=== PATIENT | female | born 1935 | race Caucasian/White ===

== ENCOUNTER 2017-09-18 14:00 | Inpatient (IN) | payer OTHER, MEDICARE ==
--- NOTE | 2017-09-18 14:17 | PDOC ---
Attending Attestation - HPI HPI: 09/18/17 18:05 The patient is a 81 year old female with a significant PMH of IDDM, GERD, OA of the knees, hypertension, benign functional heart murmur who was brought to the emergency department via EMS after a slip and fall at home earlier today. The patient reports she was zipping up her jacket as she was descending the stairs in her home when she missed a step and fell onto her L hip. The patient states she landed only her her hip, and did not sustain any other injuries. The patient denies headstrike or LOC. She has been unable to range her LLE at the hip or bear weight. Denies lightheadedness, dizziness, chest pain, shortness of breath, and headache. Denies fever, chills, nausea, vomit, diarrhea and constipation. Pt is not on AC. Allergies: NKA Social history: No reported alcohol, drug, or cigarette use. PCP: Dr. Craven - Medical Decision Making 09/18/17 18:05 Documentation prepared by Lamar Dangelo, acting as forensic medical examiner for Mikel Lewis MD. <Lamar Dangelo - Last Filed: 09/18/17 18:05> - Resident Resident Name: Inocente Gutierrez - ED Attending Attestation I have performed the following: I have examined & evaluated the patient, The case was reviewed & discussed with the resident, I agree w/resident's findings & plan, Exceptions are as noted - Physicial Exam PE: 09/18/17 15:41 GENERAL: Awake, alert, and fully oriented, in no acute distress HEAD: No signs of trauma EYES: PERRLA, EOMI, sclera anicteric, conjunctiva clear ENT: Auricles normal inspection, hearing grossly normal, nares patent, oropharynx clear without exudates. Moist mucosa NECK: Normal ROM, supple, no lymphadenopathy, JVD, or masses LUNGS: Breath sounds equal, clear to auscultation bilaterally. No wheezes, and no crackles HEART: Regular rate and rhythm, normal S1 and S2, no murmurs, rubs or gallops ABDOMEN: Soft, nontender, normoactive bowel sounds. No guarding, no rebound. No masses. Insulin pump in place EXTREMITIES: L femur with no deformities or bruising, +ttp along lateral mid femur. Pelvis stable. No hip ttp. L leg short, no rotation. Remainder of extremities: Normal range of motion, no edema. No clubbing or cyanosis. No cords, erythema, or tenderness NEUROLOGICAL: Normal speech, cranial nerves intact, negative pronator drift, 5/ 5 strength in all 4 extremities, normal sensation to light touch in all 4 extremities, normal cerebellar exam, normal reflexes and tone. Gait deferred SKIN: Warm, Dry, normal turgor, no rashes or lesions noted. - Medical Decision Making 09/18/17 15:40 81-year-old female presents with left hip and left femur pain after missing a stair at home. Vitals unremarkable. Exam with tenderness palpation of the left mid femur, 2+ DP pulse. Concern for femoral fracture, will control pain, obtain basic labs, and obtain x-ray to evaluate for bony injury. 09/18/17 18:43 Pain well-controlled with morphine. X-ray with left intertrochanteric impacted fracture. Consulted to Dr. Lewis from orthopedics who will see the patient tomorrow and recommends that the patient be NPO after midnight. Pre-op labs ordered and graham placed. Case discussed with nurse practitioner Erick, patient admitted to Dr. Monsivais for further management. Case discussed in detail with admitting physician including history, physical exam and ancillary studies. Admitting physician has assumed care for the patient, will follow all pending diagnostics and will complete the evaluation and treatment. <Mikel Lewis - Last Filed: 09/18/17 18:44> Discharge Disposition <Lamar Dangelo - Last Filed: 09/18/17 18:05> - Discharge Dispostion Last Admission D/C Date: 10/24/08 Admit: Yes <Mikel Lewis - Last Filed: 09/18/17 18:44> - Diagnosis Hip fracture, intertrochanteric - Discharge Dispostion Condition at time of disposition: Stable - Referrals Referrals: Raudel Craven MD [Primary Care Provider] - - Patient Instructions - Post Discharge Activity
[2017-09-18] MEDS ORDERED: morphine CARPU-JECT 10 MG/1 ML DISP.SYRIN IVPUSH ONE (14:46)
--- NOTE | 2017-09-18 14:53 | PDOC ---
History of Present Illness - General Chief Complaint: Injury Stated Complaint: FALL Time Seen by Provider: 09/18/17 14:13 - History of Present Illness Initial Comments: 09/18/17 14:48 Pt is a 81 y/o F with PMH IDDM (uses insulin pump), GERD, OA of the knees, ?RA, HTN, benign functional heart murmur who was BIBEMS after slipping and falling at home approximately 1 hour ago. Pt was going down steps and fell on her left hip. Pt complains of left hip and leg pain, especially when trying to move the limb. Denies numbness and tingling in the extremities. Pt denies LOC, aura, lightheadedness, vertigo. Pt not on anticoagulation. Past History - Past Medical History Allergies/Adverse Reactions: Allergies Allergy/AdvReac Type Severity Reaction Status Date / Time No Known Allergies Allergy Verified 09/18/17 14:59 Home Medications: Ambulatory Orders Cetirizine HCl [Zyrtec -] 10 mg PO DAILY 09/18/17 Insulin Lispro [Humalog] See Protocol SQ ASDIR 09/18/17 Losartan Potassium [Cozaar] 300 mg PO DAILY 09/18/17 Ranitidine HCl 150 mg PO DAILY 09/18/17 Rosuvastatin Calcium [Crestor] 5 mg PO HS 09/18/17 Sucralfate [Carafate] 1 gm PO BID 09/18/17 Sumatriptan Succinate [Imitrex -] 50 mg PO PRN PRN 09/18/17 Tramadol HCl 50 mg PO PRN PRN 09/18/17 - Suicide/Smoking/Psychosocial Hx Smoking History: Never smoked Have you smoked in the past 12 months: No Information on smoking cessation initiated: No Hx Alcohol Use: No Drug/Substance Use Hx: No Review of Systems - Review of Systems Able to Perform ROS?: Yes Is the patient limited Bengali proficient: No Constitutional: Yes: Symptoms Reported. No: Chills, Diaphoresis HEENTM: Yes: Symptoms Reported. No: Blurred Vision, Double Vision Respiratory: Yes: Symptoms reported. No: Cough, Orthopnea Cardiac (ROS): Yes: Symptoms Reported. No: Chest Pain, Edema, Irregular Heart Rate, Lightheadedness, Palpitations, Syncope, Chest Tightness ABD/GI: Yes: Symptoms Reported. No: Abdominal Distended, Nausea, Poor Appetite , Poor Fluid Intake, Vomiting : Yes: Symptoms Reported. No: Burning, Dysuria, Discharge, Pain Musculoskeletal: Yes: Symptoms Reported, See HPI, Joint Pain, Muscle Pain Integumentary: Yes: Symptoms Reported. No: Bruising, Lesions, Lumps Neurological: Yes: Symptoms reported, See HPI. No: Headache, Numbness, Paresthesia, Tingling, Tremors *Physical Exam - Vital Signs Last Vital Signs Temp Pulse Resp BP Pulse Ox 97.8 F 90 16 150/55 98 09/18/17 14:15 09/18/17 14:15 09/18/17 14:15 09/18/17 14:15 09/18/17 14:15 - Physical Exam General Appearance: Yes: Appropriately Dressed, Moderate Distress (only with movement of L limb). No: Apparent Distress HEENT: positive: EOMI, FELICITY, Normal ENT Inspection. negative: Pale Conjunctivae Neck: positive: Supple. negative: Tender Respiratory/Chest: positive: Lungs Clear, Normal Breath Sounds. negative: Chest Tender, Respiratory Distress, Accessory Muscle Use Cardiovascular: positive: Regular Rhythm, Regular Rate, S1, S2, Murmur, Systolic Murmur (4/6 holosystolic blowing murmur. Pt states it was diagnosed at 21y/o and is benign.) Vascular Pulses: Dorsalis-Pedis (R): 2+ (PT. Good cap refill), Doralis-Pedis (L) : 2+ (PT. Good cap refill) Gastrointestinal/Abdominal: positive: Normal Bowel Sounds, Flat, Soft. negative : Tender Musculoskeletal: positive: Decreased Range of Motion (left hip. Limited by pain) Extremity: positive: Normal Capillary Refill, Normal Inspection, Tender (left hip/leg. Left greated trochanter nontender. Passive ROM of left hip moderately painful), Pelvis Stable, Other (Pelvis stable. Neurovasc intact LLE). negative : Normal Range of Motion (pt not able to move left hip 2/2 pain.), Pedal Edema Integumentary: positive: Normal Color. negative: Bruising Neurologic: positive: contact lens curve grinder II-XII NML intact, Fully Oriented, Alert, Normal Mood/ Affect, Normal Response, Other. negative: Motor Strength 5/5 (Left hip movement not testable due to pain. ), Numbness ED Treatment Course - LABORATORY CBC & Chemistry Diagram: 09/19/17 07:20 09/19/17 07:20 - RADIOLOGY Radiology Studies Ordered: Category Date Time Status HIP & PELVIS-LEFT [RAD] Stat Radiology 09/18/17 14:47 Ordered Medical Decision Making - Medical Decision Making 09/18/17 15:00 Pt is a 81 y/o F w/ PMH significant for OA and possible RA slipped and fell earlier this afternoon. Passive and active ROM limited by pain. No TTP of the pelvis, greater trochanter. No bruising evident. Plan -r/o fracture/dislocation -CBC -CMP -Coags -Type & Screen -L hip & pelvis & chest XR 09/18/17 16:29 Labs significant for leukocytosis, likely reactive. Imaging significant for left femoral head fracture (pending official read). 09/18/17 16:35 Microblog sent to hospitalist team who noted that Dr. Craven/Fabián admit until 5pm today. Call placed to Dr. Craven/Fabián answering service. 09/18/17 17:30 No reply yet from Dr. Mcmillan. Second call placed. *DC/Admit/Observation/Transfer Diagnosis at time of Disposition: Hip fracture, intertrochanteric - Discharge Dispostion Condition at time of disposition: Stable - Referrals - Patient Instructions - Post Discharge Activity
[2017-09-18] MEDS ORDERED: morphine CARPU-JECT 10 MG/1 ML DISP.SYRIN ONE ×2 (15:02→17:01)
[2017-09-18 15:25] LABS: BASO % 0.6 % (0-2.0); EOS % 0.1 % (0-4.5); HEMATOCRIT 39.1 % (32.4-45.2); HEMOGLOBIN 12.9 GM/dL (10.7-15.3); LYMPH % 5.4 % (8-40); MEAN CELL VOLUME 97.2 fl (80-96); MEAN PLT VOLUME 8.7 fl (7.5-11.1); MONO % 7.7 % (3.8-10.2); NEUT % 86.2 % (42.8-82.8); PLATELET COUNT 308 K/MM3 (134-434); RBC 4.03 M/mm3 (3.60-5.2); RDW 12.7 % (11.6-15.6); WHITE BLOOD COUNT 16.2 K/mm3 (4.0-10.0)
[2017-09-18 15:49] LABS: ALBUMIN 3.8 g/dl (3.4-5.0); ANION GAP 11 (8-16); BILIRUBIN,TOTAL 0.7 mg/dL (0.2-1.0); BLOOD UREA NITROGEN 17 mg/dL (7-18); CALCIUM 8.9 mg/dL (8.5-10.1); CHLORIDE 108 mmol/L (98-107); CO2 24 mmol/L (21-32); CREATININE 0.7 mg/dL (0.55-1.02); GLUCOSE,RANDOM 230 mg/dL (74-106); POTASSIUM 4.4 mmol/L (3.5-5.1); SGOT/AST 27 U/L (15-37); SGPT/ALT 32 U/L (12-78); SODIUM 143 mmol/L (136-145); TOT PROT 6.6 g/dl (6.4-8.2)
[2017-09-18 15:50] LABS: ALK PHOS 74 U/L (45-117)
[2017-09-18 15:51] LABS: INR 1.03 (0.82-1.09); PROTHROMBIN TIME (PATIENT) 11.6 SEC (9.98-11.88)
[2017-09-18 15:54] LABS: ACTIVATED PTT 24.3 SECONDS (26.9-34.4)
[2017-09-18] MEDS ORDERED: morphine CARPU-JECT 4 MG/1 ML DISP.SYRIN IVPUSH ONE (16:32)
--- NOTE | 2017-09-18 19:50 | HP ---
CHIEF COMPLAINT: L hip fracture PCP: Dr. Craven HISTORY OF PRESENT ILLNESS: 81 yo woman w/ IDDM, HTN, OA (BL knees), benign heart murmur, who was BIBEMS after mechanical fall earlier today onto L hip. Pt states she was putting her coat on while trying to exit her house to check on an overturned garbage can outside and lost her footing on steps, landing on her L hip. Pt denies LOC, aura , lightheadness, SOB, palpitations, vertigo or weakness in legs at the time. She denies headstrike or trauma to any other body part and denies any notable deformity in the hip at the time. Pt states she tried to crawl on her knees, but stopped because of the pain. Pt normally lives alone, however grandson and son were staying with her and responded, activating EMS. Pt denies any weakness , numbness/tingling or poikilothermia distal to site of injury. Pt not currently on AC. She exercises normally and walks frequently around the house to prevent stiffness in knees from OA. She has a walker, but rarely uses it. Pt endorses receiving a DEXA scan in past, but unsure of date and results. Pt with hx of multiple ankle fractures in last decade and endorses "gait issues", but states she has full strength and no neurologic deficits in her legs. She denies any prior episodes of LOC or seizures. Denies any SANCHEZ/lightheadness, fever/chills , CP, SOB, WELLS, abdominal pain, N/V, peripheral numbness/weakness. She does endorse an occasional oral tremor that is brought on by stress, but no other neurologic issues per pt. ER course was notable for: (1)WBC 16.2 (2)Stable vitals (3)Hip XR w/ comminuted proximal femur fracture Recent Travel: None PAST MEDICAL HISTORY: IDDM GERD OA (knees) hypertension PAST SURGICAL HISTORY: None Social History: Smoking: Denies Alcohol: Denies Drugs: Denies Family History: Noncontributory Allergies NKDA No Known Allergies Allergy (Verified 09/18/17 14:59) HOME MEDICATIONS: Home Medications Medication Instructions Recorded Cetirizine HCl [Zyrtec -] 10 mg PO DAILY 09/18/17 Insulin Lispro [Humalog] See Protocol SQ ASDIR 09/18/17 Losartan Potassium [Cozaar] 300 mg PO DAILY 09/18/17 Ranitidine HCl 150 mg PO DAILY 09/18/17 Rosuvastatin Calcium [Crestor] 5 mg PO HS 09/18/17 Sucralfate [Carafate] 1 gm PO BID 09/18/17 Sumatriptan Succinate [Imitrex -] 50 mg PO PRN PRN 09/18/17 Tramadol HCl 50 mg PO PRN PRN 09/18/17 REVIEW OF SYSTEMS CONSTITUTIONAL: Absent: fever, chills, diaphoresis, generalized weakness, malaise, loss of appetite, weight change HEENT: Absent: rhinorrhea, nasal congestion, throat pain, throat swelling, difficulty swallowing, mouth swelling, ear pain, eye pain, visual changes CARDIOVASCULAR: Absent: chest pain, syncope, palpitations, irregular heart rate, lightheadedness , peripheral edema RESPIRATORY: Absent: cough, shortness of breath, dyspnea with exertion, orthopnea, wheezing, stridor, hemoptysis GASTROINTESTINAL: Absent: abdominal pain, abdominal distension, nausea, vomiting, diarrhea, constipation, melena, hematochezia GENITOURINARY: Absent: dysuria, frequency, urgency, hesitancy, hematuria, flank pain, genital pain MUSCULOSKELETAL: L hip pain arthralgia, joint swelling, Absent: myalgia, back pain, neck pain SKIN: Absent: rash, itching, pallor HEMATOLOGIC/IMMUNOLOGIC: Absent: easy bleeding, easy bruising, lymphadenopathy, frequent infections ENDOCRINE: Absent: unexplained weight gain, unexplained weight loss, heat intolerance, cold intolerance NEUROLOGIC: unsteady gait, Absent: headache, focal weakness or paresthesias, dizziness, seizure, mental status changes, bladder or bowel incontinence PSYCHIATRIC: Absent: anxiety, depression, suicidal or homicidal ideation, hallucinations. PHYSICAL EXAMINATION Vital Signs - 24 hr 09/18/17 14:15 Temperature 97.8 F Pulse Rate 90 Respiratory 16 Rate Blood Pressure 150/55 O2 Sat by Pulse 98 Oximetry (%) GENERAL: Awake, alert, and fully oriented, in no acute distress. HEAD: Normal with no signs of trauma. Inferolabial tremor noted. EYES: Pupils equal, round and reactive to light, extraocular movements intact, sclera anicteric, conjunctiva clear. No lid lag. EARS, NOSE, THROAT: Ears normal, nares patent, oropharynx clear without exudates. Moist mucous membranes. NECK: Normal range of motion, supple without lymphadenopathy, JVD, or masses. LUNGS: Breath sounds equal, clear to auscultation bilaterally. No wheezes, and no crackles. No accessory muscle use. HEART: 3/6 blowing systolic murmur, best heard at LUSB. Regular rate and rhythm , normal S1 and S2 ABDOMEN: Soft, nontender, not distended, normoactive bowel sounds, no guarding, no rebound, no masses. No hepatomegaly or splenomegaly. MUSCULOSKELETAL: Decreased ROM in L hip, limited due to pain. Focal pain noted at fx site in the anterolateral hip. Normal range of motion at all other joints. No bony deformities or tenderness. No CVA tenderness. UPPER EXTREMITIES: 2+ pulses, warm, well-perfused. No cyanosis. No clubbing. No peripheral edema. LOWER EXTREMITIES: No ecchymoses noted in L hip. 2+ DP, PT pulses BL. Warm, well-perfused BL. No calf tenderness. No peripheral edema. NEUROLOGICAL: Cranial nerves II-XII intact. Normal speech. Normal gait. PSYCHIATRIC: Cooperative. Good eye contact. Appropriate mood and affect. SKIN: Warm, dry, normal turgor, no rashes or lesions noted, normal capillary refill. Laboratory Results - last 24 hr CBC, BMP 09/18/17 15:20 09/18/17 14:57 09/18/17 09/18/17 09/18/17 14:57 14:57 15:18 WBC RBC Hgb Hct MCV MCH MCHC RDW Plt Count MPV Neutrophils % Lymphocytes % Monocytes % Eosinophils % Basophils % PT with INR 11.60 INR 1.03 PTT (Actin FS) 24.3 L Sodium 143 Potassium 4.4 Chloride 108 H Carbon Dioxide 24 Anion Gap 11 BUN 17 Creatinine 0.7 Creat Clearance w eGFR > 60 POC Glucometer [phone] Random Glucose 230 H Calcium 8.9 Total Bilirubin 0.7 AST 27 ALT 32 Alkaline Phosphatase 74 Total Protein 6.6 Albumin 3.8 Blood Type Antibody Screen 09/18/17 09/18/17 09/18/17 15:20 15:20 17:45 WBC 16.2 H RBC 4.03 Hgb 12.9 Hct 39.1 MCV 97.2 H MCH 32.0 MCHC 33.0 RDW 12.7 Plt Count 308 MPV 8.7 Neutrophils % 86.2 H Lymphocytes % 5.4 L Monocytes % 7.7 Eosinophils % 0.1 Basophils % 0.6 PT with INR INR PTT (Actin FS) Sodium Potassium Chloride Carbon Dioxide Anion Gap BUN Creatinine Creat Clearance w eGFR POC Glucometer Random Glucose Calcium Total Bilirubin AST ALT Alkaline Phosphatase Total Protein Albumin Blood Type A POSITIVE A POSITIVE Antibody Screen Negative EKG: NSR, NAD, rate 87, QTc 474, No ST or T wave changes CXR: Mild pulmonary vascular congestion. No evidence of pleural effusion. No definable pneumothorax. Hip/leg XR: IMPRESSION: Acute, comminuted complete fracture through the intertrochanteric proximal left femur as described above, with impaction and marked varus of the left femoral shaft. ASSESSMENT/PLAN: 81 yo woman w/ IDDM, HTN, OA (BL knees), benign heart murmur, who was BIBEMS after mechanical fall earlier today onto L hip. #L Femur fracture - Imaging confirmed, pt seen by ortho, ORIF in early PM tomorrow - Ortho consult, recs appreciated - Morphine for pain control - NPO after midnight - No splint needed on legs. Bedrest pre-op - AM Coags, CBC, BMP #Leukocystosis - likely stress response; no infectious symptoms - Monitor for signs infection - Trend WBC, fever #IDDM - On insulin pump at home (humalog); - ISS - BGM Q4H #GERD - Protonix IV qD PPX Heparin SubQ FEN PO hydration, NPO after midnight Daily BMPs NPO after midnight, diabetic diet post-op Plan discussed with attending, Dr. Maribel Campos, PGY1 Visit type - Emergency Visit Emergency Visit: Yes ED Registration Date: 09/18/17 Care time: The patient presented to the Emergency Department on the above date and was hospitalized for further evaluation of their emergent condition. - New Patient This patient is new to me today: Yes Date on this admission: 10/01/17 - Critical Care Critical Care patient: No
--- NOTE | 2017-09-18 21:30 | CONSULT ---
Consult - text type - Consultation Consultation Note: Asked to evaluate this margi 81F who fell at home today. She sustained a left comminuted intertrochanteric proximal femur fracture. Prior community ambulator. PMH significant for IDDM, HTN, OA of knees, benign heart murmur. PMH: as above Meds: reviewed in chart All: NKDA FH: n/c SH: denies etoh/cig use ROS: denies recent fevers/chills/weight loss PE: AOx3, NAD, comfortable in bed. Has a resting tremor. Affect is appropriate and follows commands Skin is supple, breathing comfortably Neck NTTP, FROM without pain B/L UE FROM without pain LLE flexed, NVID, pulses 2+, brisk cap refill RLE PROM without pain, pulses 2+, brisk cap refill Xrays: Comminuted, displaced, intertrochanteric proximal femur fracture with varus angulation Imp: Unstable left intertrochanteric proximal femur fracture -needs operative fixation pending medical clearance. -R/B/A discussed. There is a risk of infection, anesthesia complications, non union, mal union, hardware failure, limb length discrepancy, stiffness, persistent pain. There is a possibility that she will require an assist device for ambulation once fully healed. -She will need pharmacologic anticoagulation for 4 weeks for DVT prophylaxis -all questions answered and she agrees with the plan
[2017-09-18] MEDS ORDERED: ROSUVASTATIN CA 5 MG TABLET (FP) PO SCH (22:00)
--- NOTE | 2017-09-18 22:25 | PN ---
Teaching Attending Note Name of Resident: Jackson Campos ATTENDING PHYSICIAN STATEMENT I saw and evaluated the patient. Chart, data, imaging reviewed. I reviewed the resident's note and discussed the case with the resident. I agree with the resident's findings and plan as documented. SUBJECTIVE: 81 yo woman w/ DM, HTN, OA (BL knees), heart murmur, BIBEMS after mechanical sustained on 09/18/17 around midday. Patient reports slipping on ice and landing on her left hip. She c/o severe pain afterwards and was not able to ambulate. She denied any trauma to head. No loss of consciousness. She did not land on any other part of body and denied pain elsewhere. Denied any loss of sensation or numbness of lower extremities. OBJECTIVE: Last Vital Signs Temp Pulse Resp BP Pulse Ox 97.8 F 90 16 150/55 98 09/18/17 14:15 09/18/17 14:15 09/18/17 14:15 09/18/17 14:15 09/18/17 14:15 General- appears comfortable, NAD, communicates fluently HEENT- atraumatic, normocephalic, moist oral mucosa Neck - supple, no masses CV- s1+s2+, systolic murmur Chest- CTA b/l Abdomen- soft, nontender, no masses appreciated Ext - left lateral thigh- tender to palpation, DP 2+ b/l,, sensation in LE grossly intact, wrists with good ROM and no tenderness b/l Abnormal Lab Results 09/18/17 09/18/17 09/18/17 14:57 14:57 15:20 WBC 16.2 H MCV 97.2 H Neutrophils % 86.2 H Lymphocytes % 5.4 L PTT (Actin FS) 24.3 L Chloride 108 H Random Glucose 230 H left femur xray- acute communited complete fracture through intertrochanteric proximal left femur ASSESSMENT AND PLAN: #Left femur acute communited intertrochanteric fracture -admit to med/surg -orthopedics consult -NPO past midnight for possible orthopedic intervention -bed rest -pain control with morphine 2mg IVP q4hrs PRN -heparin 5000 units sc q8hrs for DVT ppx
[2017-09-18] MEDS ORDERED: INSULIN (NOVOLOG) ASPART 100 UNITS/ML 10ML VIAL ONE (23:05)
[2017-09-18] MEDS: INSULIN SLIDING SCALE (NOVOLOG) 1 VIAL SQ SCH (23:09)
[2017-09-18] MEDS ORDERED: INSULIN (NOVOLOG) ASPART 100 UNITS/ML 10ML VIAL SQ ONE (23:15)
[2017-09-18] MEDS ORDERED: SODIUM CHLORIDE 1,000 ML IV SCH (23:15)
[2017-09-19] MEDS ORDERED: morphine CARPU-JECT 10 MG/1 ML DISP.SYRIN ONE ×3 (01:04→14:11)
[2017-09-19] MEDS: morphine CARPU-JECT 10 MG/1 ML DISP.SYRIN IVPUSH PRN ×4 (01:11→20:36)
[2017-09-19] MEDS: INSULIN SLIDING SCALE (NOVOLOG) 1 VIAL SQ SCH ×6 (03:07→22:04)
[2017-09-19] MEDS ORDERED: INSULIN (NOVOLOG) ASPART 100 UNITS/ML 10ML VIAL ONE ×3 (03:10→21:54)
[2017-09-19] MEDS ORDERED: HEPARIN NA (PORCINE) 5,000 UNITS/ML 1ML VIAL ONE ×2 (06:08→14:54)
[2017-09-19] MEDS: HEPARIN NA (PORCINE) 5,000 UNITS/ML 1ML VIAL SQ SCH ×3 (06:32→21:39)
[2017-09-19 07:42] LABS: BASO % 0.4 % (0-2.0); EOS % 0.4 % (0-4.5); HEMATOCRIT 32.7 % (32.4-45.2); HEMOGLOBIN 10.7 GM/dL (10.7-15.3); LYMPH % 20.4 % (8-40); MCH 31.6 pg (25.7-33.7); MCHC 32.6 g/dl (32.0-36.0); MEAN PLT VOLUME 8.1 fl (7.5-11.1); MONO % 12.2 % (3.8-10.2); NEUT % 66.6 % (42.8-82.8); PLATELET COUNT 257 K/MM3 (134-434); RBC 3.37 M/mm3 (3.60-5.2); RDW 12.5 % (11.6-15.6)
[2017-09-19 07:56] LABS: INR 1.06 (0.82-1.09)
[2017-09-19 07:59] LABS: ACTIVATED PTT 22.8 SECONDS (26.9-34.4)
[2017-09-19 08:58] LABS: ALBUMIN 3.2 g/dl (3.4-5.0); ANION GAP 11 (8-16); BLOOD UREA NITROGEN 22 mg/dL (7-18); CALCIUM 8.4 mg/dL (8.5-10.1); CHLORIDE 110 mmol/L (98-107); CO2 22 mmol/L (21-32); CREATININE 0.6 mg/dL (0.55-1.02); GLUCOSE,RANDOM 100 mg/dL (74-106); POTASSIUM 3.8 mmol/L (3.5-5.1); SGOT/AST 20 U/L (15-37); SGPT/ALT 26 U/L (12-78); SODIUM 143 mmol/L (136-145)
[2017-09-19 09:00] LABS: ALK PHOS 62 U/L (45-117); TOT PROT 5.7 g/dl (6.4-8.2)
[2017-09-19] MEDS ORDERED: PANTOPRAZOLE SODIUM 40 MG VIAL IVPUSH SCH (10:00)
[2017-09-19] MEDS ORDERED: PANTOPRAZOLE SODIUM 40 MG/100 ML BAG IVPB ONE (10:55)
[2017-09-19] MEDS ORDERED: INSULIN NPH 100 UNITS/ML *VIAL ONE (14:46)
[2017-09-19 16:12] VITALS: BMI 28.3
[2017-09-19] MEDS ORDERED: MIDAZOLAM HCL 2 MG/2 ML SINGLE DOSE VIAL ONE ×2 (17:18→17:46)
[2017-09-19] MEDS ORDERED: PHENYLEPHRINE HCL 10 MG/1 ML SINGLE DOSE VIAL ONE (17:42)
[2017-09-19] MEDS ORDERED: ceFAZolin SODIUM 1 GM VIAL ONE (17:47)
--- NOTE | 2017-09-19 17:49 | PN ---
Progress Note, Physician Chief Complaint: Pt is a 81 y/o F with PMH IDDM (uses insulin pump), GERD, OA of the knees, ?RA, HTN, benign functional heart murmur who was BIBEMS after slipping and falling at home approximately 1 hour ago. Pt was going down steps and fell on her left hip. Pt complains of left hip and leg pain, especially when trying to move the limb. Denies numbness and tingling in the extremities. Pt denies LOC, aura, lightheadedness, vertigo. Pt not on anticoagulation. History of Present Illness: Pt is a 81 y/o F with PMH IDDM (uses insulin pump), GERD, OA of the knees, ?RA, HTN, benign functional heart murmur who was BIBEMS after slipping and falling at home approximately 1 hour ago. Pt was going down steps and fell on her left hip. Pt complains of left hip and leg pain, especially when trying to move the limb. Denies numbness and tingling in the extremities. Pt denies LOC, aura, lightheadedness, vertigo. Pt not on anticoagulation. Pt is going to OR now Spoke with ID also - Current Medication List Current Medications: Active Medications Heparin Sodium (Porcine) (Heparin -) 5,000 unit SQ TID [facility] Last Admin: 09/19/17 14:59 Dose: 5,000 unit Sodium Chloride (Normal Saline -) 1,000 mls @ 75 mls/hr IV ASDIR [facility] Last Admin: 09/18/17 23:22 Dose: 75 mls/hr Ampicillin Sodium/Sulbactam (Sodium 3 gm/ Dextrose) 100 mls @ 200 mls/hr IVPB Q8H-IV [facility] Last Admin: 09/19/17 17:24 Dose: Not Given Insulin Aspart (Novolog Vial Sliding Scale -) 1 vial SQ Q4HPO [facility] PRN Reason: Protocol Last Admin: 09/19/17 17:24 Dose: Not Given Morphine Sulfate (Morphine Injection -) 2 mg IVPUSH Q4H PRN PRN Reason: PAIN Last Admin: 09/19/17 14:25 Dose: 2 mg Pantoprazole Sodium (Protonix Iv) 40 mg IVPUSH DAILY [facility] Last Admin: 09/19/17 11:10 Dose: 40 mg Rosuvastatin Calcium (Crestor -) 5 mg PO HS [facility] Last Admin: 09/18/17 23:10 Dose: 5 mg - Objective Vital Signs: Vital Signs Temperature 98.5 F 09/19/17 15:56 Pulse Rate 100 H 09/19/17 15:56 Respiratory Rate 20 09/19/17 15:56 Blood Pressure 147/66 09/19/17 15:56 O2 Sat by Pulse Oximetry (%) 97 09/19/17 15:56 Constitutional: Yes: No Distress Eyes: Yes: Conjunctiva Clear, EOM Intact HENT: Yes: Atraumatic, Normocephalic Neck: Yes: Supple, Trachea Midline Cardiovascular: Yes: Regular Rate and Rhythm, S1, S2 Respiratory: Yes: Regular, CTA Bilaterally Gastrointestinal: Yes: Normal Bowel Sounds, Soft Musculoskeletal: Yes: Other (Fracture Left Femur) Edema: No Neurological: Yes: Alert, Oriented, Cran Nerves II-XII Intact Labs: CBC, BMP 09/19/17 07:20 09/19/17 07:20 INR, PTT INR 1.06 (0.82-1.09) 09/19/17 07:20
[2017-09-19] MEDS ORDERED: ceFAZolin SODIUM 1 GM VIAL IVPB ONE (17:50)
[2017-09-19] MEDS ORDERED: PROPOFOL 20 ML ONE (17:59)
[2017-09-19] MEDS ORDERED: AMPICILLIN NA/SULBACTAM NA 3 GM in DEXTROSE 5%-WATER - 100 ML IVPB SCH (18:00)
[2017-09-19] MEDS ORDERED: ONDANSETRON 4 MG/2 ML VIAL IVPUSH PRN (19:05)
[2017-09-19] MEDS ORDERED: LACTATED RINGERS SOLUTION 1,000 ML IV SCH (19:15)
[2017-09-19] MEDS ORDERED: SUMAtriptan SUCCINATE 50 MG TABLET PO PRN (19:23)
[2017-09-19] MEDS: SODIUM CHLORIDE 1,000 ML IV SCH (19:35)
[2017-09-19] MEDS: AMPICILLIN NA/SULBACTAM NA 3 GM in DEXTROSE 5%-WATER - 100 ML IVPB SCH (20:39)
--- NOTE | 2017-09-19 21:08 | OP ---
DATE OF OPERATION: 09/19/2017 PREOPERATIVE DIAGNOSIS: Left unstable intertrochanteric proximal femur fracture. POSTOPERATIVE DIAGNOSIS: Left unstable intertrochanteric proximal femur fracture. PROCEDURE PERFORMED: Operative fixation of left intertrochanteric proximal femur fracture with intramedullary device (Juventino Gamma nail 10 mm x 125 degrees x 170 mm, 90-mm lag screw, 32.5-mm distal locking screw). SURGEON: Stanley Lewis MD ANESTHESIA: Spinal. INDICATION: Patient is a 81-year-old female who sustained a fall and an unstable left proximal femur fracture. She was indicated for operative fixation. Risks, benefits, and alternatives of the surgery were discussed in detail, and informed consent was obtained. DESCRIPTION: The patient was brought into the operating room viavstretcher, and spinal anesthesia was administered by the anesthesiologist. The patient was then transferred onto a fracture table. All bony prominences were padded, and the left lower extremity was placed in traction and internal rotation and the right lower extremity in flexion and external rotation. Intraoperative fluoroscopic radiographs showed excellent reduction in both the AP and lateral planes. The hip was then prepped and draped in usual sterile fashion. Prophylactic IV antibiotics were administered. A timeout was performed. An incision was then made at the appropriate level, and a guidewire was inserted across the proximal femur. A proximal drill was then passed, followed by insertion of the nail. The nail was seated to appropriate level, and the jig was then used for the guide for the lag screw. This was inserted through a stab wound in the thigh, and a guidewire was inserted into the center-center position. A cannulated drill was then passed, followed by insertion of the 90-mm lag screw. The set screw was then inserted and tightened all the way and then backed off 1/4 turn. The guide for the distal locking screw was then inserted through a stab wound in the thigh, and a drill was then passed, followed by the insertion of a 32.5-mm screw. There was excellent reduction and implant position in all planes during the postoperative fluoroscopic radiographs. The wounds were then copiously irrigated. The deep fascia was closed with No. 1 Vicryl suture. The deep dermal tissues were approximated with 2-0 Vicryl suture, and the skin was closed with salena. Sterile dressing was applied. The patient tolerated the procedure well without complications. Kari [id number] MTDD
[2017-09-19] MEDS: ROSUVASTATIN CA 5 MG TABLET (FP) PO SCH (21:38)
[2017-09-19] MEDS: SUCRALFATE 1 GM/10 ML UNIT DOSE CUPS PO SCH (21:38)
[2017-09-19] MEDS: DOCUSATE SODIUM 100 MG CAPSULE (FP) PO SCH (21:39)
[2017-09-19] MEDS ORDERED: INSULIN (NOVOLOG) ASPART 100 UNITS/ML 10ML VIAL SQ ONE (23:15)
[2017-09-20] MEDS: AMPICILLIN NA/SULBACTAM NA 3 GM in DEXTROSE 5%-WATER - 100 ML IVPB SCH ×2 (01:24→11:28)
[2017-09-20] MEDS: INSULIN SLIDING SCALE (NOVOLOG) 1 VIAL SQ SCH ×6 (01:31→21:48)
[2017-09-20] MEDS: SODIUM CHLORIDE 1,000 ML IV SCH ×3 (03:17→21:40)
[2017-09-20] MEDS: HEPARIN NA (PORCINE) 5,000 UNITS/ML 1ML VIAL SQ SCH ×3 (06:17→21:41)
[2017-09-20] MEDS ORDERED: PT OWN MED DRAWER 7, Y5N ONE (06:40)
[2017-09-20 08:37] LABS: BASO % 0.2 % (0-2.0); HEMATOCRIT 28.6 % (32.4-45.2); HEMOGLOBIN 9.3 GM/dL (10.7-15.3); LYMPH % 9.5 % (8-40); MCH 31.9 pg (25.7-33.7); MCHC 32.4 g/dl (32.0-36.0); MEAN CELL VOLUME 98.2 fl (80-96); MEAN PLT VOLUME 8.7 fl (7.5-11.1); MONO % 13.5 % (3.8-10.2); NEUT % 76.8 % (42.8-82.8); PLATELET COUNT 218 K/MM3 (134-434); RBC 2.91 M/mm3 (3.60-5.2); RDW 12.8 % (11.6-15.6); WHITE BLOOD COUNT 15.7 K/mm3 (4.0-10.0)
[2017-09-20 09:13] LABS: ANION GAP 17 (8-16); BLOOD UREA NITROGEN 16 mg/dL (7-18); CHLORIDE 108 mmol/L (98-107); CO2 16 mmol/L (21-32); CREATININE 0.6 mg/dL (0.55-1.02); GLUCOSE,RANDOM 220 mg/dL (74-106); POTASSIUM 3.7 mmol/L (3.5-5.1); SODIUM 141 mmol/L (136-145)
[2017-09-20] MEDS: SUCRALFATE 1 GM/10 ML UNIT DOSE CUPS PO SCH ×2 (09:19→21:39)
[2017-09-20] MEDS: DOCUSATE SODIUM 100 MG CAPSULE (FP) PO SCH ×2 (09:19→22:51)
[2017-09-20] MEDS: LOSARTAN POTASSIUM 50 MG TABLET (FP) PO SCH (09:20)
[2017-09-20] MEDS: LORATADINE 10 MG TABLET PO SCH (09:20)
[2017-09-20] MEDS: RANITIDINE HCL 150 MG TABLET (FP) PO SCH (09:20)
[2017-09-20] MEDS: PANTOPRAZOLE SODIUM 40 MG VIAL IVPUSH SCH (09:20)
--- NOTE | 2017-09-20 09:32 | PN ---
Progress Note (short form) - Note Progress Note: POD #1 - s/p left hip gamma nail under spinal anesthesia. VSS. Pt. doing well, resting comfortably in bed. No complaints. No apparent anesthetic complications noted. Continue current care.
[2017-09-20] MEDS: morphine CARPU-JECT 10 MG/1 ML DISP.SYRIN IVPUSH PRN ×2 (09:48→21:41)
[2017-09-20] MEDS ORDERED: INSULIN (NOVOLOG) ASPART 100 UNITS/ML 10ML VIAL ONE (10:11)
--- NOTE | 2017-09-20 11:01 | PN ---
Progress Note, Physician Chief Complaint: Pt is a 81 y/o F with PMH IDDM (uses insulin pump), GERD, OA of the knees, ?RA, HTN, benign functional heart murmur who was BIBEMS after slipping and falling at home approximately 1 hour ago. Pt was going down steps and fell on her left hip. Pt complains of left hip and leg pain, especially when trying to move the limb. Denies numbness and tingling in the extremities. Pt denies LOC, aura, lightheadedness, vertigo. Pt not on anticoagulation. History of Present Illness: Pt is a 81 y/o F with PMH IDDM (uses insulin pump), GERD, OA of the knees, ?RA, HTN, benign functional heart murmur who was BIBEMS after slipping and falling at home approximately 1 hour ago. Pt was going down steps and fell on her left hip. Pt complains of left hip and leg pain, especially when trying to move the limb. Denies numbness and tingling in the extremities. Pt denies LOC, aura, lightheadedness, vertigo. Pt not on anticoagulation. Pt is going to OR now Spoke with ID also - Current Medication List Current Medications: Active Medications Docusate Sodium (Colace -) 100 mg PO BID [facility] Last Admin: 09/20/17 09:19 Dose: 100 mg Heparin Sodium (Porcine) (Heparin -) 5,000 unit SQ TID [facility] Last Admin: 09/20/17 06:17 Dose: 5,000 unit Lactated Ringer's (Lactated Ringers Solution) 1,000 mls @ 75 mls/hr IV ASDIR [facility] Ampicillin Sodium/Sulbactam (Sodium 3 gm/ Dextrose) 100 mls @ 200 mls/hr IVPB Q8H-IV [facility] Last Admin: 09/20/17 01:24 Dose: 200 mls/hr Sodium Chloride (Normal Saline -) 1,000 mls @ 75 mls/hr IV ASDIR [facility] Last Admin: 09/20/17 09:26 Dose: 75 mls/hr Insulin Aspart (Novolog Vial Sliding Scale -) 1 vial SQ Q4HPO [facility] PRN Reason: Protocol Last Admin: 09/20/17 10:13 Dose: 8 units Loratadine (Claritin -) 10 mg PO DAILY [facility] Last Admin: 01/06/18 09:20 Dose: 10 mg Losartan Potassium (Cozaar -) 100 mg PO DAILY [facility] Last Admin: 09/20/17 09:20 Dose: 100 mg Morphine Sulfate (Morphine Injection -) 2 mg IVPUSH Q4H PRN PRN Reason: PAIN Last Admin: 09/20/17 09:48 Dose: 2 mg Ondansetron HCl (Zofran Injection) 4 mg IVPUSH Q6H PRN PRN Reason: NAUSEA AND/OR VOMITING Pantoprazole Sodium (Protonix Iv) 40 mg IVPUSH DAILY [facility] Last Admin: 09/20/17 09:20 Dose: 40 mg Ranitidine HCl (Zantac -) 150 mg PO DAILY [facility] Last Admin: 09/20/17 09:20 Dose: 150 mg Rosuvastatin Calcium (Crestor -) 5 mg PO HS [facility] Last Admin: 09/19/17 21:38 Dose: 5 mg Sucralfate (Carafate Oral Suspension -) 1 gm PO BID [facility] Last Admin: 09/20/17 09:19 Dose: 1 gm Sumatriptan Succinate (Imitrex -) 50 mg PO PRN PRN PRN Reason: PAIN - Objective Vital Signs: Vital Signs Temperature 98.2 F 09/20/17 08:00 Pulse Rate 106 H 09/20/17 08:00 Respiratory Rate 16 09/20/17 08:00 Blood Pressure 120/75 09/20/17 08:00 O2 Sat by Pulse Oximetry (%) 98 09/19/17 21:00 Constitutional: Yes: Well Nourished, No Distress Eyes: Yes: Conjunctiva Clear, EOM Intact HENT: Yes: Atraumatic, Normocephalic Neck: Yes: Supple, Trachea Midline Cardiovascular: Yes: Regular Rate and Rhythm, S1, S2 Respiratory: Yes: Regular, CTA Bilaterally Gastrointestinal: Yes: Normal Bowel Sounds, Soft Edema: No Peripheral Pulses WNL: Yes Neurological: Yes: Alert, Oriented, Cran Nerves II-XII Intact Labs: CBC, BMP 09/20/17 07:00 09/20/17 07:00 INR, PTT INR 1.06 (0.82-1.09) 09/19/17 07:20
--- NOTE | 2017-09-20 11:05 | CON.ID ---
Consult Consult Specialty:: INFECTIOUS DISEASE Reason for Consultation:: Leukocytosis - History of Present Illness History of Present Illness: This is a 81 y.o. female with history of OA of knees, HTN, IDDM on insulin pump , GERD presenting Lt hip pain s/p slip and fall on the stairs. Pt denies any trauma to the head or loss of consciousness during the event. States she was in her usual state of health prior to fall. She was noted to have an elevated wbc upon admission. Pt denies chest pain, shortness of breath/cough, audio/visual disturbance, dizziness, dysuria. She has sustained a Lt intertrochanteric fracture now s/p operative repair. - History Source History Provided By: Patient Limitations to Obtaining History: No Limitations - Past Medical History Cardio/Vascular: Yes: HTN, Murmur (benign) Gastrointestinal: Yes: GERD ...: No Musculoskeletal: Yes: Osteoarthritis (knees) Endocrine: Yes: Diabetes Mellitus (IDDM on insulin pump) - Past Surgical History Past Surgical History: Yes: None - Alcohol/Substance Use Hx Alcohol Use: No - Smoking History Smoking history: Never smoked Have you smoked in the past 12 months: No - Social History ADL: Independent Home Medications - Allergies Allergies/Adverse Reactions: Allergies Allergy/AdvReac Type Severity Reaction Status Date / Time No Known Allergies Allergy Verified 09/18/17 14:59 - Home Medications Home Medications: Ambulatory Orders Cetirizine HCl [Zyrtec -] 10 mg PO DAILY 09/18/17 Insulin Lispro [Humalog] See Protocol SQ ASDIR 09/18/17 Losartan Potassium [Cozaar] 300 mg PO DAILY 09/18/17 Ranitidine HCl 150 mg PO DAILY 09/18/17 Rosuvastatin Calcium [Crestor] 5 mg PO HS 09/18/17 Sucralfate [Carafate] 1 gm PO BID 09/18/17 Sumatriptan Succinate [Imitrex -] 50 mg PO PRN PRN 09/18/17 Tramadol HCl 50 mg PO PRN PRN 09/18/17 Review of Systems - Review of Systems Constitutional: reports: No Symptoms Eyes: reports: No Symptoms HENT: reports: No Symptoms Neck: reports: No Symptoms Cardiovascular: reports: No Symptoms Respiratory: reports: No Symptoms Gastrointestinal: reports: No Symptoms Genitourinary: reports: No Symptoms Breasts: reports: No Symptoms Reported Musculoskeletal: reports: Joint Pain (s/p Lt femoral fx repair) Integumentary: reports: No Symptoms Neurological: reports: No Symptoms Endocrine: reports: No Symptoms Hematology/Lymphatic: reports: No Symptoms Psychiatric: reports: No Symptoms Pain Intensity: 6 Physical Exam Vital Signs: Vital Signs Temperature 98.2 F 09/20/17 08:00 Pulse Rate 106 H 09/20/17 08:00 Respiratory Rate 16 09/20/17 08:00 Blood Pressure 120/75 09/20/17 08:00 O2 Sat by Pulse Oximetry (%) 98 09/19/17 21:00 Constitutional: Yes: No Distress, Calm Eyes: Yes: WNL HENT: Yes: WNL Neck: Yes: Supple, Trachea Midline Cardiovascular: Yes: Tachycardia Respiratory: Yes: CTA Bilaterally Gastrointestinal: Yes: Normal Bowel Sounds, Soft Renal/: Yes: Brown Present (clear yellow urine) Extremities: Yes: WNL Integumentary: Yes: WNL Wound/Incision: Yes: Dressing Dry and Intact Neurological: Yes: Alert, Oriented Psychiatric: Yes: Alert Labs: CBC, BMP 09/20/17 07:00 09/20/17 07:00 Imaging - Results Chest X-ray: Report Reviewed X-ray: Report Reviewed Problem List - Problems (1) Leukocytosis Code(s): D72.829 - ELEVATED WHITE BLOOD CELL COUNT, UNSPECIFIED (2) IDDM (insulin dependent diabetes mellitus) Code(s): E11.9 - TYPE 2 DIABETES MELLITUS WITHOUT COMPLICATIONS; Z79.4 - GROUP HOME (CURRENT) USE OF INSULIN (3) Hip fracture, intertrochanteric Code(s): S72.143A - DISPLACED INTERTROCHANTERIC FRACTURE OF UNSP FEMUR, INIT Assessment/Plan 81 y.o. female admitted s/p slip/fall from stairs admitted for Lt femoral fracture now s/p repair. Noted to have leukocytosis since admission. Pt without any specific complaints. -- on empiric antibiotics -- send u/a, monitor wbc if u/a normal and remains afebrile will consider d/c antibiotics pt appears stable at this time
[2017-09-20] MEDS: PIPERACILLIN/TAZOB 3.375 GM 3.375 GM in DEXTROSE 5%-WATER - 100 ML IVPB SCH ×2 (17:15→22:51)
--- NOTE | 2017-09-20 18:12 | PN ---
Progress Note (short form) - Note Progress Note: feeling well. af. some pain at hip but got up and walked short distance with PT. wound cdi. nvi d. no calf tend. Low hb but denies sob or other symptoms. rec: oob, pt, dvt proph, rehab transfer, fu HH.
[2017-09-20] MEDS: ROSUVASTATIN CA 5 MG TABLET (FP) PO SCH (21:40)
[2017-09-21] MEDS: INSULIN SLIDING SCALE (NOVOLOG) 1 VIAL SQ SCH ×6 (01:55→21:31)
[2017-09-21] MEDS: PIPERACILLIN/TAZOB 3.375 GM 3.375 GM in DEXTROSE 5%-WATER - 100 ML IVPB SCH ×4 (02:56→21:22)
[2017-09-21] MEDS: HEPARIN NA (PORCINE) 5,000 UNITS/ML 1ML VIAL SQ SCH ×3 (05:52→21:21)
[2017-09-21] MEDS: morphine CARPU-JECT 10 MG/1 ML DISP.SYRIN IVPUSH PRN ×2 (05:53→10:18)
[2017-09-21] MEDS ORDERED: PIPERACIL/TAZOB 3.375 GM 3.375 GM/50 ML PREMIX IVPB SCH (06:00)
[2017-09-21] MEDS ORDERED: PT OWN MED DRAWER 7, Y5N ONE ×4 (06:20→21:23)
[2017-09-21] MEDS ORDERED: INSULIN (NOVOLOG) ASPART 100 UNITS/ML 10ML VIAL ONE (06:20)
[2017-09-21 07:16] LABS: BASO % 0.1 % (0-2.0); EOS % 0.3 % (0-4.5); HEMATOCRIT 24.7 % (32.4-45.2); HEMOGLOBIN 8.3 GM/dL (10.7-15.3); MCH 32.6 pg (25.7-33.7); MCHC 33.6 g/dl (32.0-36.0); MEAN CELL VOLUME 97.1 fl (80-96); MEAN PLT VOLUME 8.2 fl (7.5-11.1); MONO % 14.4 % (3.8-10.2); NEUT % 75.2 % (42.8-82.8); PLATELET COUNT 211 K/MM3 (134-434); RBC 2.54 M/mm3 (3.60-5.2); RDW 12.6 % (11.6-15.6); WHITE BLOOD COUNT 16.3 K/mm3 (4.0-10.0)
[2017-09-21] MEDS: SUCRALFATE 1 GM/10 ML UNIT DOSE CUPS PO SCH ×2 (09:19→21:20)
[2017-09-21] MEDS: PANTOPRAZOLE SODIUM 40 MG VIAL IVPUSH SCH (09:19)
[2017-09-21] MEDS: RANITIDINE HCL 150 MG TABLET (FP) PO SCH (09:20)
[2017-09-21] MEDS: LORATADINE 10 MG TABLET PO SCH (09:20)
[2017-09-21] MEDS: DOCUSATE SODIUM 100 MG CAPSULE (FP) PO SCH ×2 (09:22→21:21)
[2017-09-21] MEDS: LOSARTAN POTASSIUM 50 MG TABLET (FP) PO SCH (10:22)
--- NOTE | 2017-09-21 13:40 | PN ---
Progress Note, Physician History of Present Illness: Pt states she feels well overall. Some pain in Rt knee. Otherwise no specific complaints. Tmax 99F. - Current Medication List Current Medications: Active Medications Docusate Sodium (Colace -) 100 mg PO BID [facility] Last Admin: 09/21/17 09:22 Dose: 100 mg Heparin Sodium (Porcine) (Heparin -) 5,000 unit SQ TID [facility] Last Admin: 09/21/17 05:52 Dose: 5,000 unit Lactated Ringer's (Lactated Ringers Solution) 1,000 mls @ 75 mls/hr IV ASDIR [facility] Sodium Chloride (Normal Saline -) 1,000 mls @ 75 mls/hr IV ASDIR [facility] Last Admin: 09/20/17 21:40 Dose: 75 mls/hr Piperacillin Sod/Tazobactam (Sod 3.375 gm/ Dextrose) 100 mls @ 100 mls/hr IVPB Q6H-IV [facility] PRN Reason: Protocol Last Admin: 09/21/17 09:20 Dose: 100 mls/hr Insulin Aspart (Novolog Vial Sliding Scale -) 1 vial SQ Q4HPO [facility] PRN Reason: Protocol Last Admin: 09/21/17 10:22 Dose: 10 units Loratadine (Claritin -) 10 mg PO DAILY [facility] Last Admin: 09/21/17 09:20 Dose: 10 mg Losartan Potassium (Cozaar -) 100 mg PO DAILY [facility] Last Admin: 09/21/17 10:22 Dose: 100 mg Morphine Sulfate (Morphine Injection -) 2 mg IVPUSH Q4H PRN PRN Reason: PAIN Last Admin: 09/21/17 10:18 Dose: 2 mg Ondansetron HCl (Zofran Injection) 4 mg IVPUSH Q6H PRN PRN Reason: NAUSEA AND/OR VOMITING Pantoprazole Sodium (Protonix Iv) 40 mg IVPUSH DAILY [facility] Last Admin: 09/21/17 09:19 Dose: 40 mg Ranitidine HCl (Zantac -) 150 mg PO DAILY [facility] Last Admin: 09/21/17 09:20 Dose: 150 mg Rosuvastatin Calcium (Crestor -) 5 mg PO HS [facility] Last Admin: 09/20/17 21:40 Dose: 5 mg Sucralfate (Carafate Oral Suspension -) 1 gm PO BID [facility] Last Admin: 09/21/17 09:19 Dose: 1 gm Sumatriptan Succinate (Imitrex -) 50 mg PO PRN PRN PRN Reason: PAIN - Objective Vital Signs: Vital Signs Temperature 99.0 F 09/21/17 08:33 Pulse Rate 98 H 09/21/17 10:12 Respiratory Rate 18 09/21/17 10:12 Blood Pressure 138/70 09/21/17 10:12 O2 Sat by Pulse Oximetry (%) 97 09/21/17 08:41 Constitutional: Yes: No Distress, Calm Cardiovascular: Yes: Tachycardia Respiratory: Yes: CTA Bilaterally Gastrointestinal: Yes: Normal Bowel Sounds, Soft Genitourinary: Yes: WNL Integumentary: Yes: WNL Wound/Incision: Yes: Dressing Dry and Intact Labs: CBC, BMP 09/21/17 06:45 09/20/17 07:00 INR, PTT INR 1.06 (0.82-1.09) 09/19/17 07:20 Problem List - Problems (1) Leukocytosis Code(s): D72.829 - ELEVATED WHITE BLOOD CELL COUNT, UNSPECIFIED (2) IDDM (insulin dependent diabetes mellitus) Code(s): E11.9 - TYPE 2 DIABETES MELLITUS WITHOUT COMPLICATIONS; Z79.4 - [employer] (CURRENT) USE OF INSULIN (3) Hip fracture, intertrochanteric Code(s): S72.143A - DISPLACED INTERTROCHANTERIC FRACTURE OF UNSP FEMUR, INIT Assessment/Plan 81 y.o. female admitted s/p slip/fall from stairs admitted for Lt femoral fracture now s/p repair with persistent leukocytosis - pt clinically appears stable - leukocytosis may be reactive - d/c antibiotics for now and monitor vitals - continue monitor wbc
--- NOTE | 2017-09-21 13:44 | PN ---
Progress Note, Physician - Current Medication List Current Medications: Active Medications Docusate Sodium (Colace -) 100 mg PO BID [facility] Last Admin: 09/21/17 09:22 Dose: 100 mg Heparin Sodium (Porcine) (Heparin -) 5,000 unit SQ TID [facility] Last Admin: 09/21/17 05:52 Dose: 5,000 unit Lactated Ringer's (Lactated Ringers Solution) 1,000 mls @ 75 mls/hr IV ASDIR [facility] Sodium Chloride (Normal Saline -) 1,000 mls @ 75 mls/hr IV ASDIR [facility] Last Admin: 09/20/17 21:40 Dose: 75 mls/hr Piperacillin Sod/Tazobactam (Sod 3.375 gm/ Dextrose) 100 mls @ 100 mls/hr IVPB Q6H-IV [facility] PRN Reason: Protocol Last Admin: 09/21/17 09:20 Dose: 100 mls/hr Insulin Aspart (Novolog Vial Sliding Scale -) 1 vial SQ Q4HPO [facility] PRN Reason: Protocol Last Admin: 09/21/17 10:22 Dose: 10 units Loratadine (Claritin -) 10 mg PO DAILY [facility] Last Admin: 09/21/17 09:20 Dose: 10 mg Losartan Potassium (Cozaar -) 100 mg PO DAILY [facility] Last Admin: 09/21/17 10:22 Dose: 100 mg Morphine Sulfate (Morphine Injection -) 2 mg IVPUSH Q4H PRN PRN Reason: PAIN Last Admin: 09/21/17 10:18 Dose: 2 mg Ondansetron HCl (Zofran Injection) 4 mg IVPUSH Q6H PRN PRN Reason: NAUSEA AND/OR VOMITING Pantoprazole Sodium (Protonix Iv) 40 mg IVPUSH DAILY [facility] Last Admin: 09/21/17 09:19 Dose: 40 mg Ranitidine HCl (Zantac -) 150 mg PO DAILY [facility] Last Admin: 09/21/17 09:20 Dose: 150 mg Rosuvastatin Calcium (Crestor -) 5 mg PO HS [facility] Last Admin: 09/20/17 21:40 Dose: 5 mg Sucralfate (Carafate Oral Suspension -) 1 gm PO BID [facility] Last Admin: 09/21/17 09:19 Dose: 1 gm Sumatriptan Succinate (Imitrex -) 50 mg PO PRN PRN PRN Reason: PAIN - Objective Vital Signs: Vital Signs Temperature 99.0 F 09/21/17 08:33 Pulse Rate 98 H 09/21/17 10:12 Respiratory Rate 18 09/21/17 10:12 Blood Pressure 138/70 09/21/17 10:12 O2 Sat by Pulse Oximetry (%) 97 09/21/17 08:41 Labs: CBC, BMP 09/21/17 06:45 09/20/17 07:00 INR, PTT INR 1.06 (0.82-1.09) 09/19/17 07:20 Problem List - Problems (1) Hip fracture, intertrochanteric Code(s): S72.143A - DISPLACED INTERTROCHANTERIC FRACTURE OF UNSP FEMUR, INIT (2) Fall Code(s): W19.XXXA - UNSPECIFIED FALL, INITIAL ENCOUNTER (3) IDDM (insulin dependent diabetes mellitus) Code(s): E11.9 - TYPE 2 DIABETES MELLITUS WITHOUT COMPLICATIONS; Z79.4 - [employer] (CURRENT) USE OF INSULIN (4) Sepsis Code(s): A41.9 - SEPSIS, UNSPECIFIED ORGANISM (5) Arthritis, rheumatoid Code(s): M06.9 - RHEUMATOID ARTHRITIS, UNSPECIFIED (6) Recurrent falls Code(s): R29.6 - REPEATED FALLS
[2017-09-21] MEDS: traMADol HCL 50 MG TABLET PO SCH ×2 (16:14→21:20)
[2017-09-21] MEDS: SODIUM CHLORIDE 1,000 ML IV SCH (17:50)
[2017-09-21] MEDS: ROSUVASTATIN CA 5 MG TABLET (FP) PO SCH (21:25)
[2017-09-21] MEDS: INDOMETHACIN 50 MG CAPSULE PO SCH (22:12)
[2017-09-22] MEDS: SODIUM CHLORIDE 1,000 ML IV SCH (00:13)
[2017-09-22] MEDS: INSULIN SLIDING SCALE (NOVOLOG) 1 VIAL SQ SCH ×6 (01:53→21:37)
[2017-09-22] MEDS ORDERED: PIPERACIL/TAZOB 3.375 GM 3.375 GM/50 ML PREMIX IVPB SCH (02:00)
[2017-09-22] MEDS: PIPERACILLIN/TAZOB 3.375 GM 3.375 GM in DEXTROSE 5%-WATER - 100 ML IVPB SCH ×3 (05:14→17:01)
[2017-09-22] MEDS: traMADol HCL 50 MG TABLET PO SCH ×3 (05:41→21:36)
[2017-09-22] MEDS: HEPARIN NA (PORCINE) 5,000 UNITS/ML 1ML VIAL SQ SCH ×3 (05:41→21:44)
[2017-09-22] MEDS ORDERED: INSULIN (NOVOLOG) ASPART 100 UNITS/ML 10ML VIAL ONE ×4 (06:21→21:32)
[2017-09-22 07:31] LABS: BASO % 0.6 % (0-2.0); EOS % 0.9 % (0-4.5); HEMATOCRIT 24.2 % (32.4-45.2); LYMPH % 16.3 % (8-40); MCH 31.8 pg (25.7-33.7); MCHC 33.1 g/dl (32.0-36.0); MEAN CELL VOLUME 96.2 fl (80-96); MEAN PLT VOLUME 8.7 fl (7.5-11.1); MONO % 14.5 % (3.8-10.2); NEUT % 67.7 % (42.8-82.8); PLATELET COUNT 197 K/MM3 (134-434); RBC 2.52 M/mm3 (3.60-5.2); RDW 12.4 % (11.6-15.6)
[2017-09-22 08:06] LABS: ANION GAP 13 (8-16); BLOOD UREA NITROGEN 11 mg/dL (7-18); CALCIUM 7.9 mg/dL (8.5-10.1); CHLORIDE 103 mmol/L (98-107); CO2 22 mmol/L (21-32); GLUCOSE,RANDOM 224 mg/dL (74-106); POTASSIUM 3.1 mmol/L (3.5-5.1); SODIUM 138 mmol/L (136-145)
[2017-09-22 08:08] LABS: CREATININE 0.5 mg/dL (0.55-1.02)
--- NOTE | 2017-09-22 08:27 | PN ---
Progress Note, Physician History of Present Illness: Feels well. Hip is feeling better today. Right knee is also feeling a lot better. Did not walk yesterday due to pain in knee. Feels like she can walk today - Current Medication List Current Medications: Active Medications Docusate Sodium (Colace -) 100 mg PO BID [facility] Last Admin: 09/21/17 21:21 Dose: 100 mg Heparin Sodium (Porcine) (Heparin -) 5,000 unit SQ TID [facility] Last Admin: 09/22/17 05:41 Dose: 5,000 unit Indomethacin (Indocin -) 50 mg PO BID [facility] Last Admin: 09/21/17 22:12 Dose: 50 mg Insulin Aspart (Novolog Vial Sliding Scale -) 1 vial SQ Q4HPO [facility] PRN Reason: Protocol Last Admin: 09/22/17 06:20 Dose: 4 units Loratadine (Claritin -) 10 mg PO DAILY [facility] Last Admin: 09/21/17 09:20 Dose: 10 mg Losartan Potassium (Cozaar -) 100 mg PO DAILY [facility] Last Admin: 09/21/17 10:22 Dose: 100 mg Ondansetron HCl (Zofran Injection) 4 mg IVPUSH Q6H PRN PRN Reason: NAUSEA AND/OR VOMITING Pantoprazole Sodium (Protonix Iv) 40 mg IVPUSH DAILY [facility] Last Admin: 09/21/17 09:19 Dose: 40 mg Piperacillin/Tazobactam/Dextrose (Zosyn 3.375gm Ivpb (Premix)) 3.375 gm IVPB Q8H-IV [facility] Ranitidine HCl (Zantac -) 150 mg PO DAILY [facility] Last Admin: 09/21/17 09:20 Dose: 150 mg Rosuvastatin Calcium (Crestor -) 5 mg PO HS [facility] Last Admin: 09/21/17 21:25 Dose: 5 mg Sucralfate (Carafate Oral Suspension -) 1 gm PO BID [facility] Last Admin: 09/21/17 21:20 Dose: 1 gm Sumatriptan Succinate (Imitrex -) 50 mg PO PRN PRN PRN Reason: PAIN Tramadol HCl (Ultram -) 50 mg PO TID [facility] Last Admin: 09/22/17 05:41 Dose: 50 mg - Objective Vital Signs: Vital Signs Temperature 98.3 F 09/22/17 06:00 Pulse Rate 95 H 09/22/17 06:00 Respiratory Rate 20 09/22/17 06:00 Blood Pressure 126/68 09/22/17 06:00 O2 Sat by Pulse Oximetry (%) 97 09/21/17 21:00 Constitutional: Yes: Well Nourished, No Distress HENT: Yes: Atraumatic, Normocephalic Musculoskeletal: Yes: Other (Left hip: Dressing CDI, No sign of infection, Smooth motion of hip. Calf NT. NVID Right knee: Mild effusion of the knee. Mild diffuse tenderness along the knee. Quadracepts intact. Smooth Motion. NVID.) Labs: CBC, BMP 09/22/17 07:00 09/22/17 07:00 INR, PTT INR 1.06 (0.82-1.09) 09/19/17 07:20 Assessment/Plan #1 POD 3 s/p L hip ORIF #2 Right knee arthritis -Continue PT WBAT -Pain control -DVT prophaxis -January D/C to rehab from orthopedic standpoint
[2017-09-22] MEDS ORDERED: PT OWN MED DRAWER 7, Y5N ONE ×2 (10:15→21:31)
[2017-09-22] MEDS: LORATADINE 10 MG TABLET PO SCH (10:20)
[2017-09-22] MEDS: LOSARTAN POTASSIUM 50 MG TABLET (FP) PO SCH (10:20)
[2017-09-22] MEDS: DOCUSATE SODIUM 100 MG CAPSULE (FP) PO SCH ×2 (10:20→21:37)
[2017-09-22] MEDS: SUCRALFATE 1 GM/10 ML UNIT DOSE CUPS PO SCH ×2 (10:20→21:39)
[2017-09-22] MEDS: INDOMETHACIN 50 MG CAPSULE PO SCH ×2 (10:21→21:36)
[2017-09-22] MEDS: PANTOPRAZOLE SODIUM 40 MG VIAL IVPUSH SCH (10:21)
[2017-09-22] MEDS: RANITIDINE HCL 150 MG TABLET (FP) PO SCH (10:22)
--- NOTE | 2017-09-22 11:12 | PN ---
Progress Note, Physician - Current Medication List Current Medications: Active Medications Docusate Sodium (Colace -) 100 mg PO BID [facility] Last Admin: 09/22/17 10:20 Dose: 100 mg Heparin Sodium (Porcine) (Heparin -) 5,000 unit SQ TID [facility] Last Admin: 09/22/17 05:41 Dose: 5,000 unit Indomethacin (Indocin -) 50 mg PO BID [facility] Last Admin: 09/22/17 10:21 Dose: 50 mg Insulin Aspart (Novolog Vial Sliding Scale -) 1 vial SQ Q4HPO [facility] PRN Reason: Protocol Last Admin: 09/22/17 06:20 Dose: 4 units Insulin Aspart (Novolog Vial) 15 units SQ ONCE ONE Stop: 09/22/17 11:16 Loratadine (Claritin -) 10 mg PO DAILY [facility] Last Admin: 09/22/17 10:20 Dose: 10 mg Losartan Potassium (Cozaar -) 100 mg PO DAILY [facility] Last Admin: 09/22/17 10:20 Dose: 100 mg Ondansetron HCl (Zofran Injection) 4 mg IVPUSH Q6H PRN PRN Reason: NAUSEA AND/OR VOMITING Pantoprazole Sodium (Protonix Iv) 40 mg IVPUSH DAILY [facility] Last Admin: 09/22/17 10:21 Dose: 40 mg Piperacillin/Tazobactam/Dextrose (Zosyn 3.375gm Ivpb (Premix)) 3.375 gm IVPB Q8H-IV [facility] Ranitidine HCl (Zantac -) 150 mg PO DAILY [facility] Last Admin: 09/22/17 10:22 Dose: 150 mg Rosuvastatin Calcium (Crestor -) 5 mg PO HS [facility] Last Admin: 09/21/17 21:25 Dose: 5 mg Sucralfate (Carafate Oral Suspension -) 1 gm PO BID [facility] Last Admin: 09/22/17 10:20 Dose: 1 gm Sumatriptan Succinate (Imitrex -) 50 mg PO PRN PRN PRN Reason: PAIN Tramadol HCl (Ultram -) 50 mg PO TID [facility] Last Admin: 09/22/17 05:41 Dose: 50 mg - Objective Vital Signs: Vital Signs Temperature 98.3 F 09/22/17 06:00 Pulse Rate 95 H 09/22/17 06:00 Respiratory Rate 20 09/22/17 06:00 Blood Pressure 126/68 09/22/17 06:00 O2 Sat by Pulse Oximetry (%) 97 09/21/17 21:00 Labs: CBC, BMP 09/22/17 07:00 09/22/17 07:00 INR, PTT INR 1.06 (0.82-1.09) 09/19/17 07:20 Problem List - Problems (1) Hip fracture, intertrochanteric Code(s): S72.143A - DISPLACED INTERTROCHANTERIC FRACTURE OF UNSP FEMUR, INIT (2) Fall Code(s): W19.XXXA - UNSPECIFIED FALL, INITIAL ENCOUNTER (3) IDDM (insulin dependent diabetes mellitus) Code(s): E11.9 - TYPE 2 DIABETES MELLITUS WITHOUT COMPLICATIONS; Z79.4 - ALF (CURRENT) USE OF INSULIN (4) Sepsis Code(s): A41.9 - SEPSIS, UNSPECIFIED ORGANISM (5) Arthritis, rheumatoid Code(s): M06.9 - RHEUMATOID ARTHRITIS, UNSPECIFIED (6) Recurrent falls Code(s): R29.6 - REPEATED FALLS
[2017-09-22] MEDS ORDERED: INSULIN (NOVOLOG) ASPART 100 UNITS/ML 10ML VIAL SQ ONE (11:15)
--- NOTE | 2017-09-22 12:48 | PN ---
Progress Note, Physician History of Present Illness: starting to feel better also anxious no specific complaints wbc still high patient is diabetic with multiple issues has pump in her - Current Medication List Current Medications: Active Medications Colchicine (Colcrys -) 0.6 mg PO BID [facility] Stop: 09/27/17 06:00 Docusate Sodium (Colace -) 100 mg PO BID [facility] Last Admin: 09/22/17 10:20 Dose: 100 mg Heparin Sodium (Porcine) (Heparin -) 5,000 unit SQ TID [facility] Last Admin: 09/22/17 05:41 Dose: 5,000 unit Piperacillin Sod/Tazobactam (Sod 3.375 gm/ Dextrose) 100 mls @ 200 mls/hr IVPB Q8H-IV [facility] PRN Reason: Protocol Indomethacin (Indocin -) 50 mg PO BID [facility] Last Admin: 09/22/17 10:21 Dose: 50 mg Insulin Aspart (Novolog Vial Sliding Scale -) 1 vial SQ Q4HPO [facility] PRN Reason: Protocol Last Admin: 09/22/17 11:34 Dose: Not Given Loratadine (Claritin -) 10 mg PO DAILY [facility] Last Admin: 09/22/17 10:20 Dose: 10 mg Losartan Potassium (Cozaar -) 100 mg PO DAILY [facility] Last Admin: 09/22/17 10:20 Dose: 100 mg Ondansetron HCl (Zofran Injection) 4 mg IVPUSH Q6H PRN PRN Reason: NAUSEA AND/OR VOMITING Pantoprazole Sodium (Protonix Iv) 40 mg IVPUSH DAILY [facility] Last Admin: 09/22/17 10:21 Dose: 40 mg Ranitidine HCl (Zantac -) 150 mg PO DAILY [facility] Last Admin: 09/22/17 10:22 Dose: 150 mg Rosuvastatin Calcium (Crestor -) 5 mg PO HS [facility] Last Admin: 09/21/17 21:25 Dose: 5 mg Sucralfate (Carafate Oral Suspension -) 1 gm PO BID [facility] Last Admin: 09/22/17 10:20 Dose: 1 gm Sumatriptan Succinate (Imitrex -) 50 mg PO PRN PRN PRN Reason: PAIN Tramadol HCl (Ultram -) 50 mg PO TID [facility] Last Admin: 09/22/17 05:41 Dose: 50 mg - Objective Vital Signs: Vital Signs Temperature 98.3 F 09/22/17 06:00 Pulse Rate 95 H 09/22/17 06:00 Respiratory Rate 20 09/22/17 06:00 Blood Pressure 126/68 09/22/17 06:00 O2 Sat by Pulse Oximetry (%) 97 09/21/17 21:00 Constitutional: Yes: Calm, Mild Distress Cardiovascular: Yes: Regular Rate and Rhythm Respiratory: Yes: Regular, CTA Bilaterally Gastrointestinal: Yes: Normal Bowel Sounds, Soft Musculoskeletal: Yes: WNL Extremities: Yes: Other Wound/Incision: Yes: Dressing Dry and Intact Neurological: Yes: Alert, Oriented Psychiatric: Yes: Alert, Oriented Labs: CBC, BMP 09/22/17 07:00 09/22/17 07:00 INR, PTT INR 1.06 (0.82-1.09) 09/19/17 07:20 Assessment/Plan Problem List - Problems (1) Hip fracture, intertrochanteric Code(s): S72.143A - DISPLACED INTERTROCHANTERIC FRACTURE OF UNSP FEMUR, INIT (2) Fall Code(s): W19.XXXA - UNSPECIFIED FALL, INITIAL ENCOUNTER (3) IDDM (insulin dependent diabetes mellitus) Code(s): E11.9 - TYPE 2 DIABETES MELLITUS WITHOUT COMPLICATIONS; 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
--- NOTE | 2017-09-22 20:40 | CONSULT ---
Consult Consult Specialty:: endocrine Referred by:: Reason for Consultation:: diabetes mellitus - History of Present Illness Chief Complaint: fracture hip sp fall History of Present Illness: 81 y f dm iddm,htn,hypothyroidism,sp fall and fracture,sp repair left intertrochanteric proximal fracture,has had high sugars,with nausea and pain from fall - History Source History Provided By: Patient - Past Medical History Cardio/Vascular: Yes: HTN, Murmur (benign) Gastrointestinal: Yes: GERD ...: No Musculoskeletal: Yes: Osteoarthritis (knees) Endocrine: Yes: Diabetes Mellitus (IDDM on insulin pump) - Past Surgical History Past Surgical History: Yes: None - Alcohol/Substance Use Hx Alcohol Use: No - Smoking History Smoking history: Never smoked Have you smoked in the past 12 months: No - Social History ADL: Independent Home Medications - Allergies Allergies/Adverse Reactions: Allergies Allergy/AdvReac Type Severity Reaction Status Date / Time No Known Allergies Allergy Verified 09/18/17 14:59 - Home Medications Home Medications: Ambulatory Orders Cetirizine HCl [Zyrtec -] 10 mg PO DAILY 09/18/17 Insulin Lispro [Humalog] See Protocol SQ ASDIR 09/18/17 Losartan Potassium [Cozaar] 300 mg PO DAILY 09/18/17 Ranitidine HCl 150 mg PO DAILY 09/18/17 Rosuvastatin Calcium [Crestor] 5 mg PO HS 09/18/17 Sucralfate [Carafate] 1 gm PO BID 09/18/17 Sumatriptan Succinate [Imitrex -] 50 mg PO PRN PRN 09/18/17 Tramadol HCl 50 mg PO PRN PRN 09/18/17 Review of Systems - Review of Systems Constitutional: reports: Loss of Appetite, Weakness Eyes: reports: No Symptoms HENT: reports: No Symptoms Neck: reports: No Symptoms Cardiovascular: reports: No Symptoms Respiratory: reports: Exercise Intolerance, SOB on Exertion Gastrointestinal: reports: No Symptoms Genitourinary: reports: No Symptoms Musculoskeletal: reports: Muscle Pain, Muscle Cramps, Muscle Weakness Integumentary: reports: No Symptoms Neurological: reports: Tremors, Weakness Endocrine: reports: No Symptoms Physical Exam Vital Signs: Vital Signs Temperature 97.8 F 09/22/17 14:36 Pulse Rate 96 H 09/22/17 14:36 Respiratory Rate 20 09/22/17 14:36 Blood Pressure 111/50 09/22/17 14:36 O2 Sat by Pulse Oximetry (%) 97 09/22/17 08:00 Constitutional: Yes: Anxious Eyes: Yes: EOM Intact HENT: Yes: Normocephalic Neck: Yes: Trachea Midline Cardiovascular: Yes: Regular Rate and Rhythm, Murmur Respiratory: Yes: CTA Bilaterally Gastrointestinal: Yes: Normal Bowel Sounds ...Rectal Exam: Yes: Deferred Renal/: Yes: WNL Musculoskeletal: Yes: Muscle Pain, Muscle Weakness Extremities: Yes: WNL Labs: CBC, BMP 09/22/17 07:00 09/22/17 07:00 Problem List - Problems (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 Code(s): E03.8 - OTHER SPECIFIED HYPOTHYROIDISM; E06.3 - AUTOIMMUNE THYROIDITIS (2) Fall Code(s): W19.XXXA - UNSPECIFIED FALL, INITIAL ENCOUNTER (3) Hip fracture, intertrochanteric Code(s): S72.143A - DISPLACED INTERTROCHANTERIC FRACTURE OF UNSP FEMUR, INIT (4) IDDM (insulin dependent diabetes mellitus) Code(s): E11.9 - TYPE 2 DIABETES MELLITUS WITHOUT COMPLICATIONS; Z79.4 - FDC (CURRENT) USE OF INSULIN (5) Recurrent falls Code(s): R29.6 - REPEATED FALLS Assessment/Plan Current Active Problems Arthritis, rheumatoid (Acute) Fall (Acute) Hip fracture, intertrochanteric (Acute) IDDM (insulin dependent diabetes mellitus) (Acute) Leukocytosis (Acute) Recurrent falls (Acute) Sepsis (Acute) Abnormal Lab Results 09/22/17 09/22/17 07:00 07:00 WBC 14.0 H RBC 2.52 L Hgb 8.0 L Hct 24.2 L MCV 96.2 H Monocytes % 14.5 H Potassium 3.1 L Creatinine 0.5 L Random Glucose 224 H Calcium 7.9 L Laboratory Results - last 24 hr 09/21/17 09/21/17 09/22/17 21:00 21:30 01:50 WBC RBC Hgb Hct MCV MCH MCHC RDW Plt Count MPV Neutrophils % Lymphocytes % Monocytes % Eosinophils % Basophils % Sodium Potassium Chloride Carbon Dioxide Anion Gap BUN Creatinine POC Glucometer 313 257 Random Glucose Calcium Blood Type A POSITIVE Antibody Screen Negative 0109/22/17 09/22/17 05:37 07:00 07:00 WBC 14.0 H RBC 2.52 L Hgb 8.0 L Hct 24.2 L MCV 96.2 H MCH 31.8 MCHC 33.1 RDW 12.4 Plt Count 197 MPV 8.7 Neutrophils % 67.7 Lymphocytes % 16.3 D Monocytes % 14.5 H Eosinophils % 0.9 D Basophils % 0.6 D Sodium 138 Potassium 3.1 L Chloride 103 Carbon Dioxide 22 D Anion Gap 13 BUN 11 D Creatinine 0.5 L POC Glucometer 250 Random Glucose 224 H Calcium 7.9 L Blood Type Antibody Screen 09/22/17 09/22/17 10:25 16:55 WBC RBC Hgb Hct MCV MCH MCHC RDW Plt Count MPV Neutrophils % Lymphocytes % Monocytes % Eosinophils % Basophils % Sodium Potassium Chloride Carbon Dioxide Anion Gap BUN Creatinine POC Glucometer 415 356 Random Glucose Calcium Blood Type Antibody Screen plan: bgm qid novolog insulin dose once pump available may start using basal bolus pump tonight give 10 units levemir once
[2017-09-22] MEDS ORDERED: INSULIN DETEMIR 100 UNITS/ML MDV SQ ONE (20:44)
[2017-09-22] MEDS: ROSUVASTATIN CA 5 MG TABLET (FP) PO SCH (21:36)
[2017-09-22] MEDS: COLCHICINE 0.6 MG TABLET (FP) PO SCH (21:37)
[2017-09-23] MEDS: PIPERACILLIN/TAZOB 3.375 GM 3.375 GM in DEXTROSE 5%-WATER - 100 ML IVPB SCH ×3 (01:09→17:23)
[2017-09-23] MEDS: INSULIN SLIDING SCALE (NOVOLOG) 1 VIAL SQ SCH ×6 (01:25→21:45)
[2017-09-23] MEDS: HEPARIN NA (PORCINE) 5,000 UNITS/ML 1ML VIAL SQ SCH ×3 (05:31→21:48)
[2017-09-23] MEDS: traMADol HCL 50 MG TABLET PO SCH ×3 (05:32→21:47)
[2017-09-23] MEDS ORDERED: INSULIN (NOVOLOG) ASPART 100 UNITS/ML 10ML VIAL ONE ×3 (09:56→17:10)
[2017-09-23] MEDS: COLCHICINE 0.6 MG TABLET (FP) PO SCH ×2 (10:02→21:46)
[2017-09-23] MEDS: SUCRALFATE 1 GM/10 ML UNIT DOSE CUPS PO SCH ×2 (10:02→21:48)
[2017-09-23] MEDS: DOCUSATE SODIUM 100 MG CAPSULE (FP) PO SCH ×2 (10:02→21:46)
[2017-09-23] MEDS: INDOMETHACIN 50 MG CAPSULE PO SCH ×2 (10:02→21:46)
[2017-09-23] MEDS: RANITIDINE HCL 150 MG TABLET (FP) PO SCH (10:02)
[2017-09-23] MEDS: LOSARTAN POTASSIUM 50 MG TABLET (FP) PO SCH (10:02)
[2017-09-23] MEDS: LORATADINE 10 MG TABLET PO SCH (10:02)
[2017-09-23] MEDS: PANTOPRAZOLE SODIUM 40 MG VIAL IVPUSH SCH (10:03)
--- NOTE | 2017-09-23 12:56 | PN ---
Progress Note, Physician History of Present Illness: feels much better no complaints minimal pain - Current Medication List Current Medications: Active Medications Colchicine (Colcrys -) 0.6 mg PO BID [facility] Stop: 09/27/17 06:00 Last Admin: 09/23/17 10:02 Dose: 0.6 mg Docusate Sodium (Colace -) 100 mg PO BID [facility] Last Admin: 09/23/17 10:02 Dose: 100 mg Heparin Sodium (Porcine) (Heparin -) 5,000 unit SQ TID [facility] Last Admin: 09/23/17 05:31 Dose: Not Given Piperacillin Sod/Tazobactam (Sod 3.375 gm/ Dextrose) 100 mls @ 200 mls/hr IVPB Q8H-IV [facility] PRN Reason: Protocol Last Admin: 09/23/17 10:03 Dose: 200 mls/hr Indomethacin (Indocin -) 50 mg PO BID [facility] Last Admin: 09/23/17 10:02 Dose: 50 mg Insulin Aspart (Novolog Vial Sliding Scale -) 1 vial SQ Q4HPO [facility] PRN Reason: Protocol Last Admin: 09/23/17 10:07 Dose: 10 units Loratadine (Claritin -) 10 mg PO DAILY [facility] Last Admin: 09/23/17 10:02 Dose: 10 mg Losartan Potassium (Cozaar -) 100 mg PO DAILY [facility] Last Admin: 09/23/17 10:02 Dose: 100 mg Ondansetron HCl (Zofran Injection) 4 mg IVPUSH Q6H PRN PRN Reason: NAUSEA AND/OR VOMITING Pantoprazole Sodium (Protonix Iv) 40 mg IVPUSH DAILY [facility] Last Admin: 09/23/17 10:03 Dose: 40 mg Ranitidine HCl (Zantac -) 150 mg PO DAILY [facility] Last Admin: 09/23/17 10:02 Dose: 150 mg Rosuvastatin Calcium (Crestor -) 5 mg PO HS [facility] Last Admin: 09/22/17 21:36 Dose: 5 mg Sucralfate (Carafate Oral Suspension -) 1 gm PO BID [facility] Last Admin: 09/23/17 10:02 Dose: 1 gm Sumatriptan Succinate (Imitrex -) 50 mg PO PRN PRN PRN Reason: PAIN Tramadol HCl (Ultram -) 50 mg PO TID [facility] Last Admin: 09/23/17 05:32 Dose: 50 mg - Objective Vital Signs: Vital Signs Temperature 98.7 F 09/23/17 06:00 Pulse Rate 96 H 09/23/17 06:00 Respiratory Rate 20 09/23/17 06:00 Blood Pressure 132/64 09/23/17 06:00 O2 Sat by Pulse Oximetry (%) 97 09/22/17 21:00 Constitutional: Yes: No Distress, Calm Cardiovascular: Yes: Regular Rate and Rhythm Respiratory: Yes: Regular, CTA Bilaterally Gastrointestinal: Yes: Normal Bowel Sounds, Soft Musculoskeletal: Yes: WNL Extremities: Yes: Other Neurological: Yes: Alert, Oriented Psychiatric: Yes: Alert, Oriented Labs: CBC, BMP 09/22/17 07:00 09/22/17 07:00 INR, PTT INR 1.06 (0.82-1.09) 09/19/17 07:20 Assessment/Plan Problem List - Problems (1) Hip fracture, intertrochanteric Code(s): S72.143A - DISPLACED INTERTROCHANTERIC FRACTURE OF UNSP FEMUR, INIT (2) Fall Code(s): W19.XXXA - UNSPECIFIED FALL, INITIAL ENCOUNTER (3) IDDM (insulin dependent diabetes mellitus) Code(s): E11.9 - TYPE 2 DIABETES MELLITUS WITHOUT COMPLICATIONS; 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
--- NOTE | 2017-09-23 13:10 | PN ---
Progress Note, Physician - Current Medication List Current Medications: Active Medications Colchicine (Colcrys -) 0.6 mg PO BID [facility] Stop: 09/27/17 06:00 Last Admin: 09/23/17 10:02 Dose: 0.6 mg Docusate Sodium (Colace -) 100 mg PO BID [facility] Last Admin: 09/23/17 10:02 Dose: 100 mg Heparin Sodium (Porcine) (Heparin -) 5,000 unit SQ TID [facility] Last Admin: 09/23/17 05:31 Dose: Not Given Piperacillin Sod/Tazobactam (Sod 3.375 gm/ Dextrose) 100 mls @ 200 mls/hr IVPB Q8H-IV [facility] PRN Reason: Protocol Last Admin: 09/23/17 10:03 Dose: 200 mls/hr Indomethacin (Indocin -) 50 mg PO BID [facility] Last Admin: 09/23/17 10:02 Dose: 50 mg Insulin Aspart (Novolog Vial Sliding Scale -) 1 vial SQ Q4HPO [facility] PRN Reason: Protocol Last Admin: 09/23/17 10:07 Dose: 10 units Loratadine (Claritin -) 10 mg PO DAILY [facility] Last Admin: 09/23/17 10:02 Dose: 10 mg Losartan Potassium (Cozaar -) 100 mg PO DAILY [facility] Last Admin: 09/23/17 10:02 Dose: 100 mg Ondansetron HCl (Zofran Injection) 4 mg IVPUSH Q6H PRN PRN Reason: NAUSEA AND/OR VOMITING Pantoprazole Sodium (Protonix Iv) 40 mg IVPUSH DAILY [facility] Last Admin: 09/23/17 10:03 Dose: 40 mg Ranitidine HCl (Zantac -) 150 mg PO DAILY [facility] Last Admin: 09/23/17 10:02 Dose: 150 mg Rosuvastatin Calcium (Crestor -) 5 mg PO HS [facility] Last Admin: 09/22/17 21:36 Dose: 5 mg Sucralfate (Carafate Oral Suspension -) 1 gm PO BID [facility] Last Admin: 09/23/17 10:02 Dose: 1 gm Sumatriptan Succinate (Imitrex -) 50 mg PO PRN PRN PRN Reason: PAIN Tramadol HCl (Ultram -) 50 mg PO TID [facility] Last Admin: 09/23/17 05:32 Dose: 50 mg - Objective Vital Signs: Vital Signs Temperature 98.7 F 09/23/17 06:00 Pulse Rate 96 H 09/23/17 06:00 Respiratory Rate 20 09/23/17 06:00 Blood Pressure 132/64 09/23/17 06:00 O2 Sat by Pulse Oximetry (%) 97 09/22/17 21:00 Labs: CBC, BMP 09/22/17 07:00 09/22/17 07:00 INR, PTT INR 1.06 (0.82-1.09) 09/19/17 07:20 Problem List - Problems (1) Hip fracture, intertrochanteric Code(s): S72.143A - DISPLACED INTERTROCHANTERIC FRACTURE OF UNSP FEMUR, INIT (2) Fall Code(s): W19.XXXA - UNSPECIFIED FALL, INITIAL ENCOUNTER (3) IDDM (insulin dependent diabetes mellitus) Code(s): E11.9 - TYPE 2 DIABETES MELLITUS WITHOUT COMPLICATIONS; 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
[2017-09-23 14:23] LABS: BASO % 0.3 % (0-2.0); HEMATOCRIT 26.3 % (32.4-45.2); HEMOGLOBIN 8.5 GM/dL (10.7-15.3); LYMPH % 11.2 % (8-40); MCH 31.1 pg (25.7-33.7); MCHC 32.4 g/dl (32.0-36.0); MEAN CELL VOLUME 95.9 fl (80-96); MEAN PLT VOLUME 8.4 fl (7.5-11.1); MONO % 10.4 % (3.8-10.2); NEUT % 75.1 % (42.8-82.8); PLATELET COUNT 286 K/MM3 (134-434); RBC 2.75 M/mm3 (3.60-5.2); RDW 12.4 % (11.6-15.6)
[2017-09-23 14:35] LABS: ANION GAP 12 (8-16); BLOOD UREA NITROGEN 20 mg/dL (7-18); CALCIUM 8.3 mg/dL (8.5-10.1); CHLORIDE 101 mmol/L (98-107); CO2 24 mmol/L (21-32); CREATININE 0.7 mg/dL (0.55-1.02); POTASSIUM 3.3 mmol/L (3.5-5.1); SODIUM 137 mmol/L (136-145)
[2017-09-23 14:53] LABS: GLUCOSE,RANDOM 325 mg/dL (74-106)
--- NOTE | 2017-09-23 15:18 | EKG ---
Test Reason : Blood Pressure : / mmHG Vent. Rate : 087 BPM Atrial Rate : 087 BPM P-R Int : 160 ms QRS Dur : 086 ms QT Int : 394 ms P-R-T Axes : 069 040 051 degrees QTc Int : 474 ms NORMAL SINUS RHYTHM NONSPECIFIC ST ABNORMALITY ABNORMAL ECG WHEN COMPARED WITH ECG OF 23-OCT-2008 09:30, NO SIGNIFICANT CHANGE WAS FOUND Confirmed by Popeye Martinez MD ([id number]) on 09/23/2017 3:17:39 PM Referred By: Confirmed By:Popeye Martinez MD
[2017-09-23] MEDS ORDERED: POTASSIUM CHLORIDE ORAL LIQUID 20 MEQ/15 ML PO ONE (20:00)
[2017-09-23] MEDS ORDERED: PT OWN MED DRAWER 7, Y5N ONE (21:36)
[2017-09-23] MEDS: FERROUS GLUCONATE 324 MG TAB (FP) PO SCH (21:46)
[2017-09-23] MEDS: ASCORBIC ACID 500 MG TABLET (FP) PO SCH (21:46)
[2017-09-23] MEDS: ROSUVASTATIN CA 5 MG TABLET (FP) PO SCH (21:47)
--- NOTE | 2017-09-24 01:05 | PN ---
Progress Note, Physician Chief Complaint: COMFORTABLE NO COMPLAINT History of Present Illness: IDDM,HTN,HYPOTHYROID,SP FRACTURE LEFT FEMUR,HIGH SUGARS NOTED - Current Medication List Current Medications: Active Medications Ascorbic Acid (Vitamin C -) 500 mg PO BID [facility] Last Admin: 09/23/17 21:46 Dose: 500 mg Colchicine (Colcrys -) 0.6 mg PO BID [facility] Stop: 09/27/17 06:00 Last Admin: 09/23/17 21:46 Dose: 0.6 mg Docusate Sodium (Colace -) 100 mg PO BID [facility] Last Admin: 09/23/17 21:46 Dose: 100 mg Ferrous Gluconate (Fergon -) 324 mg PO BID [facility] Last Admin: 09/23/17 21:46 Dose: 324 mg Heparin Sodium (Porcine) (Heparin -) 5,000 unit SQ TID [facility] Last Admin: 09/23/17 21:48 Dose: 5,000 unit Piperacillin Sod/Tazobactam (Sod 3.375 gm/ Dextrose) 100 mls @ 200 mls/hr IVPB Q8H-IV [facility] PRN Reason: Protocol Last Admin: 09/23/17 17:23 Dose: 200 mls/hr Indomethacin (Indocin -) 50 mg PO BID [facility] Last Admin: 09/23/17 21:46 Dose: 50 mg Insulin Aspart (Novolog Vial Sliding Scale -) 1 vial SQ Q4HPO [facility] PRN Reason: Protocol Last Admin: 09/23/17 21:45 Dose: 6 units Loratadine (Claritin -) 10 mg PO DAILY [facility] Last Admin: 09/23/17 10:02 Dose: 10 mg Losartan Potassium (Cozaar -) 100 mg PO DAILY [facility] Last Admin: 09/23/17 10:02 Dose: 100 mg Ondansetron HCl (Zofran Injection) 4 mg IVPUSH Q6H PRN PRN Reason: NAUSEA AND/OR VOMITING Pantoprazole Sodium (Protonix Iv) 40 mg IVPUSH DAILY [facility] Last Admin: 09/23/17 10:03 Dose: 40 mg Ranitidine HCl (Zantac -) 150 mg PO DAILY [facility] Last Admin: 09/23/17 10:02 Dose: 150 mg Rosuvastatin Calcium (Crestor -) 5 mg PO HS [facility] Last Admin: 09/23/17 21:47 Dose: 5 mg Sucralfate (Carafate Oral Suspension -) 1 gm PO BID [facility] Last Admin: 09/23/17 21:48 Dose: 1 gm Sumatriptan Succinate (Imitrex -) 50 mg PO PRN PRN PRN Reason: PAIN Tramadol HCl (Ultram -) 50 mg PO TID [facility] Last Admin: 09/23/17 21:47 Dose: 50 mg - Objective Vital Signs: Vital Signs Temperature 98.7 F 09/23/17 21:00 Pulse Rate 89 09/23/17 21:00 Respiratory Rate 20 09/23/17 21:00 Blood Pressure 116/61 09/23/17 21:00 O2 Sat by Pulse Oximetry (%) 99 09/23/17 21:00 Constitutional: Yes: Calm Eyes: Yes: EOM Intact HENT: Yes: Normocephalic Neck: Yes: Trachea Midline Cardiovascular: Yes: Regular Rate and Rhythm Respiratory: Yes: Regular Gastrointestinal: Yes: WNL ...Rectal Exam: Yes: WNL Genitourinary: Yes: WNL Breast(s): Yes: WNL Musculoskeletal: Yes: Back Pain, Joint Swelling, Muscle Pain, Muscle Weakness Extremities: Yes: Internal Rotation Edema: No Labs: CBC, BMP 09/23/17 13:40 09/23/17 13:40 INR, PTT INR 1.06 (0.82-1.09) 09/19/17 07:20 Problem List - Problems (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 Code(s): E03.8 - OTHER SPECIFIED HYPOTHYROIDISM; E06.3 - AUTOIMMUNE THYROIDITIS (2) Fall Code(s): W19.XXXA - UNSPECIFIED FALL, INITIAL ENCOUNTER (3) Hip fracture, intertrochanteric Code(s): S72.143A - DISPLACED INTERTROCHANTERIC FRACTURE OF UNSP FEMUR, INIT (4) IDDM (insulin dependent diabetes mellitus) Code(s): E11.9 - TYPE 2 DIABETES MELLITUS WITHOUT COMPLICATIONS; Z79.4 - 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 PREVENTION LEAD (CURRENT) USE OF INSULIN (5) Recurrent falls Code(s): R29.6 - REPEATED FALLS Assessment/Plan Current Active Problems Arthritis, rheumatoid (Acute) Fall (Acute) Hip fracture, intertrochanteric (Acute) 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 (Acute) IDDM (insulin dependent diabetes mellitus) (Acute) Leukocytosis (Acute) Recurrent falls (Acute) Sepsis (Acute) Abnormal Lab Results 09/23/17 09/23/17 13:40 13:40 WBC 13.0 H RBC 2.75 L Hgb 8.5 L Hct 26.3 L Monocytes % 10.4 H Potassium 3.3 L BUN 20 H D Random Glucose 325 H* D Calcium 8.3 L PLAN: RESTART INSULIN PUMP IN AM BGM Q4HRS PATIENT HAS DEMONSTRATED SKILL AND KNOWLEDGE HOW TO USE INSULIN DEVICE WITH CDE TRAINING ,FOR PAST SEVERAL YEARS HAS USED SAME PUMP WITHOUT HESITANCE OR DIFFICULTY,PATIENT TO GIVE HERSELF INSULIN WITH PUMP DEVICE WILL FOLLOW CLOSELY PUMP IS BETTER SUITED FOR LABILE BLOOD SUGARS.
[2017-09-24] MEDS: PIPERACILLIN/TAZOB 3.375 GM 3.375 GM in DEXTROSE 5%-WATER - 100 ML IVPB SCH ×3 (01:32→17:40)
[2017-09-24] MEDS: INSULIN SLIDING SCALE (NOVOLOG) 1 VIAL SQ SCH ×6 (01:36→21:54)
[2017-09-24] MEDS ORDERED: PT OWN MED DRAWER 7, Y5N ONE ×3 (02:52→16:54)
[2017-09-24] MEDS: traMADol HCL 50 MG TABLET PO SCH ×3 (05:43→21:51)
[2017-09-24] MEDS: HEPARIN NA (PORCINE) 5,000 UNITS/ML 1ML VIAL SQ SCH ×3 (05:46→22:01)
[2017-09-24 08:30] LABS: HEMATOCRIT 23.2 % (32.4-45.2); HEMOGLOBIN 7.8 GM/dL (10.7-15.3); MCH 32.3 pg (25.7-33.7); MCHC 33.6 g/dl (32.0-36.0); MEAN PLT VOLUME 8.2 fl (7.5-11.1); PLATELET COUNT 265 K/MM3 (134-434); RBC 2.41 M/mm3 (3.60-5.2); RDW 12.6 % (11.6-15.6)
[2017-09-24 09:07] LABS: ANION GAP 7 (8-16); BLOOD UREA NITROGEN 17 mg/dL (7-18); CALCIUM 7.8 mg/dL (8.5-10.1); CHLORIDE 104 mmol/L (98-107); CO2 28 mmol/L (21-32); CREATININE 0.7 mg/dL (0.55-1.02); GLUCOSE,RANDOM 246 mg/dL (74-106); POTASSIUM 3.4 mmol/L (3.5-5.1); SODIUM 139 mmol/L (136-145)
[2017-09-24] MEDS: RANITIDINE HCL 150 MG TABLET (FP) PO SCH (10:00)
[2017-09-24] MEDS: PANTOPRAZOLE SODIUM 40 MG VIAL IVPUSH SCH (10:00)
[2017-09-24] MEDS: ASCORBIC ACID 500 MG TABLET (FP) PO SCH ×2 (10:00→21:51)
[2017-09-24] MEDS: DOCUSATE SODIUM 100 MG CAPSULE (FP) PO SCH ×2 (10:00→21:51)
[2017-09-24] MEDS: COLCHICINE 0.6 MG TABLET (FP) PO SCH ×2 (10:00→21:53)
[2017-09-24] MEDS: SUCRALFATE 1 GM/10 ML UNIT DOSE CUPS PO SCH ×2 (10:00→21:51)
[2017-09-24] MEDS: LOSARTAN POTASSIUM 50 MG TABLET (FP) PO SCH (10:01)
[2017-09-24] MEDS: FERROUS GLUCONATE 324 MG TAB (FP) PO SCH ×2 (10:01→21:52)
[2017-09-24] MEDS: LORATADINE 10 MG TABLET PO SCH (10:01)
[2017-09-24] MEDS: INDOMETHACIN 50 MG CAPSULE PO SCH ×2 (10:01→21:53)
--- NOTE | 2017-09-24 16:18 | PN ---
Progress Note, Physician History of Present Illness: patient stable has developed some drainage from the wound ortho going to follow up - Current Medication List Current Medications: Active Medications Ascorbic Acid (Vitamin C -) 500 mg PO BID [facility] Last Admin: 09/24/17 10:00 Dose: 500 mg Colchicine (Colcrys -) 0.6 mg PO BID [facility] Stop: 09/27/17 06:00 Last Admin: 09/24/17 10:00 Dose: 0.6 mg Docusate Sodium (Colace -) 100 mg PO BID [facility] Last Admin: 09/24/17 10:00 Dose: 100 mg Ferrous Gluconate (Fergon -) 324 mg PO BID [facility] Last Admin: 09/24/17 10:01 Dose: 324 mg Heparin Sodium (Porcine) (Heparin -) 5,000 unit SQ TID [facility] Last Admin: 09/24/17 13:27 Dose: 5,000 unit Piperacillin Sod/Tazobactam (Sod 3.375 gm/ Dextrose) 100 mls @ 200 mls/hr IVPB Q8H-IV [facility] PRN Reason: Protocol Last Admin: 09/24/17 10:02 Dose: 200 mls/hr Indomethacin (Indocin -) 50 mg PO BID [facility] Last Admin: 09/24/17 10:01 Dose: 50 mg Insulin Aspart (Novolog Vial Sliding Scale -) 1 vial SQ Q4HPO [facility] PRN Reason: Protocol Last Admin: 09/24/17 13:28 Dose: 9.9 units Loratadine (Claritin -) 10 mg PO DAILY [facility] Last Admin: 09/24/17 10:01 Dose: 10 mg Losartan Potassium (Cozaar -) 100 mg PO DAILY [facility] Last Admin: 09/24/17 10:01 Dose: 100 mg Ondansetron HCl (Zofran Injection) 4 mg IVPUSH Q6H PRN PRN Reason: NAUSEA AND/OR VOMITING Pantoprazole Sodium (Protonix Iv) 40 mg IVPUSH DAILY [facility] Last Admin: 09/24/17 10:00 Dose: 40 mg Ranitidine HCl (Zantac -) 150 mg PO DAILY [facility] Last Admin: 09/24/17 10:00 Dose: 150 mg Rosuvastatin Calcium (Crestor -) 5 mg PO HS [facility] Last Admin: 09/23/17 21:47 Dose: 5 mg Sucralfate (Carafate Oral Suspension -) 1 gm PO BID [facility] Last Admin: 09/24/17 10:00 Dose: 1 gm Sumatriptan Succinate (Imitrex -) 50 mg PO PRN PRN PRN Reason: PAIN Tramadol HCl (Ultram -) 50 mg PO TID [facility] Last Admin: 09/24/17 13:27 Dose: 50 mg - Objective Vital Signs: Vital Signs Temperature 98.2 F 09/24/17 14:59 Pulse Rate 87 09/24/17 14:59 Respiratory Rate 20 09/24/17 14:59 Blood Pressure 109/59 09/24/17 14:59 O2 Sat by Pulse Oximetry (%) 99 09/24/17 09:00 Constitutional: Yes: No Distress, Calm Cardiovascular: Yes: Regular Rate and Rhythm Respiratory: Yes: Regular, CTA Bilaterally Gastrointestinal: Yes: Normal Bowel Sounds, Soft Musculoskeletal: Yes: Other Extremities: Yes: Other (wound with draiange) Wound/Incision: Yes: Draining Neurological: Yes: Alert, Oriented Psychiatric: Yes: Alert, Oriented Labs: CBC, BMP 09/24/17 06:30 09/24/17 06:30 INR, PTT INR 1.06 (0.82-1.09) 09/19/17 07:20 Assessment/Plan Problem List - Problems (1) Hip fracture, intertrochanteric Code(s): S72.143A - DISPLACED INTERTROCHANTERIC FRACTURE OF UNSP FEMUR, INIT (2) Fall Code(s): W19.XXXA - UNSPECIFIED FALL, INITIAL ENCOUNTER (3) IDDM (insulin dependent diabetes mellitus) Code(s): E11.9 - TYPE 2 DIABETES MELLITUS WITHOUT COMPLICATIONS; 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
--- NOTE | 2017-09-24 17:59 | PN ---
Progress Note, Physician - Current Medication List Current Medications: Active Medications Ascorbic Acid (Vitamin C -) 500 mg PO BID [facility] Last Admin: 09/24/17 10:00 Dose: 500 mg Colchicine (Colcrys -) 0.6 mg PO BID [facility] Stop: 09/27/17 06:00 Last Admin: 09/24/17 10:00 Dose: 0.6 mg Docusate Sodium (Colace -) 100 mg PO BID [facility] Last Admin: 09/24/17 10:00 Dose: 100 mg Ferrous Gluconate (Fergon -) 324 mg PO BID [facility] Last Admin: 09/24/17 10:01 Dose: 324 mg Heparin Sodium (Porcine) (Heparin -) 5,000 unit SQ TID [facility] Last Admin: 09/24/17 13:27 Dose: 5,000 unit Piperacillin Sod/Tazobactam (Sod 3.375 gm/ Dextrose) 100 mls @ 200 mls/hr IVPB Q8H-IV [facility] PRN Reason: Protocol Last Admin: 09/24/17 17:40 Dose: 200 mls/hr Indomethacin (Indocin -) 50 mg PO BID [facility] Last Admin: 09/24/17 10:01 Dose: 50 mg Insulin Aspart (Novolog Vial Sliding Scale -) 1 vial SQ Q4HPO [facility] PRN Reason: Protocol Last Admin: 09/24/17 17:54 Dose: 12 units Loratadine (Claritin -) 10 mg PO DAILY [facility] Last Admin: 09/24/17 10:01 Dose: 10 mg Losartan Potassium (Cozaar -) 100 mg PO DAILY [facility] Last Admin: 09/24/17 10:01 Dose: 100 mg Ondansetron HCl (Zofran Injection) 4 mg IVPUSH Q6H PRN PRN Reason: NAUSEA AND/OR VOMITING Pantoprazole Sodium (Protonix Iv) 40 mg IVPUSH DAILY [facility] Last Admin: 09/24/17 10:00 Dose: 40 mg Potassium Chloride (K-Dur -) 40 meq PO ONCE ONE Stop: 09/24/17 17:59 Ranitidine HCl (Zantac -) 150 mg PO DAILY [facility] Last Admin: 09/24/17 10:00 Dose: 150 mg Rosuvastatin Calcium (Crestor -) 5 mg PO HS [facility] Last Admin: 09/23/17 21:47 Dose: 5 mg Sucralfate (Carafate Oral Suspension -) 1 gm PO BID [facility] Last Admin: 09/24/17 10:00 Dose: 1 gm Sumatriptan Succinate (Imitrex -) 50 mg PO PRN PRN PRN Reason: PAIN Tramadol HCl (Ultram -) 50 mg PO TID [facility] Last Admin: 09/24/17 13:27 Dose: 50 mg - Objective Vital Signs: Vital Signs Temperature 98.2 F 09/24/17 14:59 Pulse Rate 87 09/24/17 14:59 Respiratory Rate 20 09/24/17 14:59 Blood Pressure 109/59 09/24/17 14:59 O2 Sat by Pulse Oximetry (%) 99 09/24/17 09:00 Labs: CBC, BMP 09/24/17 06:30 09/24/17 06:30 INR, PTT INR 1.06 (0.82-1.09) 09/19/17 07:20 Problem List - Problems (1) Hip fracture, intertrochanteric Code(s): S72.143A - DISPLACED INTERTROCHANTERIC FRACTURE OF UNSP FEMUR, INIT (2) Fall Code(s): W19.XXXA - UNSPECIFIED FALL, INITIAL ENCOUNTER (3) IDDM (insulin dependent diabetes mellitus) Code(s): E11.9 - TYPE 2 DIABETES MELLITUS WITHOUT COMPLICATIONS; Z79.4 - [facility] (CURRENT) USE OF INSULIN (4) Sepsis Code(s): A41.9 - SEPSIS, UNSPECIFIED ORGANISM (5) Arthritis, rheumatoid Code(s): M06.9 - RHEUMATOID ARTHRITIS, UNSPECIFIED (6) Recurrent falls Code(s): R29.6 - REPEATED FALLS
[2017-09-24] MEDS ORDERED: POTASSIUM CHLORIDE TABS 20 MEQ TABLET.ER (FP) PO ONE (18:15)
[2017-09-24] MEDS: ROSUVASTATIN CA 5 MG TABLET (FP) PO SCH (21:53)
[2017-09-25] MEDS: PIPERACILLIN/TAZOB 3.375 GM 3.375 GM in DEXTROSE 5%-WATER - 100 ML IVPB SCH ×3 (01:16→17:09)
[2017-09-25] MEDS: INSULIN SLIDING SCALE (NOVOLOG) 1 VIAL SQ SCH ×6 (01:28→21:21)
[2017-09-25] MEDS: HEPARIN NA (PORCINE) 5,000 UNITS/ML 1ML VIAL SQ SCH ×3 (05:46→21:21)
[2017-09-25] MEDS: traMADol HCL 50 MG TABLET PO SCH ×3 (05:46→21:18)
[2017-09-25] MEDS ORDERED: PT OWN MED DRAWER 7, Y5N ONE ×3 (09:56→21:10)
[2017-09-25] MEDS: INDOMETHACIN 50 MG CAPSULE PO SCH ×2 (10:00→21:20)
[2017-09-25] MEDS: ASCORBIC ACID 500 MG TABLET (FP) PO SCH ×2 (10:00→21:19)
[2017-09-25] MEDS: RANITIDINE HCL 150 MG TABLET (FP) PO SCH (10:00)
[2017-09-25] MEDS: DOCUSATE SODIUM 100 MG CAPSULE (FP) PO SCH ×3 (10:00→21:25)
[2017-09-25] MEDS: LOSARTAN POTASSIUM 50 MG TABLET (FP) PO SCH (10:00)
[2017-09-25] MEDS: FERROUS GLUCONATE 324 MG TAB (FP) PO SCH ×2 (10:00→21:18)
[2017-09-25] MEDS: COLCHICINE 0.6 MG TABLET (FP) PO SCH ×2 (10:00→21:18)
[2017-09-25] MEDS: LORATADINE 10 MG TABLET PO SCH (10:05)
[2017-09-25] MEDS: PANTOPRAZOLE SODIUM 40 MG VIAL IVPUSH SCH (10:06)
[2017-09-25] MEDS: SUCRALFATE 1 GM/10 ML UNIT DOSE CUPS PO SCH ×2 (10:31→21:19)
[2017-09-25 12:01] LABS: EOS % 4.1 % (0-4.5); HEMATOCRIT 31.9 % (32.4-45.2); HEMOGLOBIN 10.4 GM/dL (10.7-15.3); LYMPH % 16.2 % (8-40); MCHC 32.6 g/dl (32.0-36.0); MEAN CELL VOLUME 91.9 fl (80-96); MEAN PLT VOLUME 7.9 fl (7.5-11.1); MONO % 10.1 % (3.8-10.2); NEUT % 68.6 % (42.8-82.8); PLATELET COUNT 329 K/MM3 (134-434); RBC 3.47 M/mm3 (3.60-5.2); RDW 16.1 % (11.6-15.6); WHITE BLOOD COUNT 12.9 K/mm3 (4.0-10.0)
--- NOTE | 2017-09-25 12:23 | PN ---
Progress Note, Physician History of Present Illness: drop in hand h wound still oozing patient transfused 2 units wbc increased - Current Medication List Current Medications: Active Medications Ascorbic Acid (Vitamin C -) 500 mg PO BID [facility] Last Admin: 09/25/17 10:00 Dose: 500 mg Colchicine (Colcrys -) 0.6 mg PO BID [facility] Stop: 09/27/17 06:00 Last Admin: 09/25/17 10:00 Dose: 0.6 mg Docusate Sodium (Colace -) 100 mg PO BID [facility] Last Admin: 09/25/17 10:00 Dose: 100 mg Ferrous Gluconate (Fergon -) 324 mg PO BID [facility] Last Admin: 09/25/17 10:00 Dose: 324 mg Heparin Sodium (Porcine) (Heparin -) 5,000 unit SQ TID [facility] Last Admin: 09/25/17 05:46 Dose: 5,000 unit Piperacillin Sod/Tazobactam (Sod 3.375 gm/ Dextrose) 100 mls @ 200 mls/hr IVPB Q8H-IV [facility] PRN Reason: Protocol Last Admin: 09/25/17 10:06 Dose: 200 mls/hr Indomethacin (Indocin -) 50 mg PO BID [facility] Last Admin: 09/25/17 10:00 Dose: 50 mg Insulin Aspart (Novolog Vial Sliding Scale -) 1 vial SQ Q4HPO [facility] PRN Reason: Protocol Last Admin: 09/25/17 10:12 Dose: Not Given Loratadine (Claritin -) 10 mg PO DAILY [facility] Last Admin: 09/25/17 10:05 Dose: 10 mg Losartan Potassium (Cozaar -) 100 mg PO DAILY [facility] Last Admin: 09/25/17 10:00 Dose: 100 mg Ondansetron HCl (Zofran Injection) 4 mg IVPUSH Q6H PRN PRN Reason: NAUSEA AND/OR VOMITING Pantoprazole Sodium (Protonix Iv) 40 mg IVPUSH DAILY [facility] Last Admin: 09/25/17 10:06 Dose: 40 mg Ranitidine HCl (Zantac -) 150 mg PO DAILY [facility] Last Admin: 09/25/17 10:00 Dose: 150 mg Rosuvastatin Calcium (Crestor -) 5 mg PO HS [facility] Last Admin: 09/24/17 21:53 Dose: 5 mg Sucralfate (Carafate Oral Suspension -) 1 gm PO BID [facility] Last Admin: 09/25/17 10:31 Dose: 1 gm Sumatriptan Succinate (Imitrex -) 50 mg PO PRN PRN PRN Reason: PAIN Tramadol HCl (Ultram -) 50 mg PO TID [facility] Last Admin: 09/25/17 05:46 Dose: 50 mg - Objective Vital Signs: Vital Signs Temperature 98.9 F 09/25/17 05:39 Pulse Rate 89 09/25/17 05:39 Respiratory Rate 20 09/25/17 08:54 Blood Pressure 129/67 09/25/17 05:39 O2 Sat by Pulse Oximetry (%) 99 09/25/17 08:54 Constitutional: Yes: No Distress, Calm Cardiovascular: Yes: Regular Rate and Rhythm Respiratory: Yes: Regular, CTA Bilaterally Gastrointestinal: Yes: Normal Bowel Sounds, Soft Musculoskeletal: Yes: Other Extremities: Yes: Other Wound/Incision: Yes: Draining Neurological: Yes: Alert, Oriented Psychiatric: Yes: Alert, Oriented Labs: CBC, BMP 09/25/17 11:40 INR, PTT INR 1.06 (0.82-1.09) 09/19/17 07:20 Assessment/Plan Problem List - Problems (1) Hip fracture, intertrochanteric Code(s): S72.143A - DISPLACED INTERTROCHANTERIC FRACTURE OF UNSP FEMUR, INIT (2) Fall Code(s): W19.XXXA - UNSPECIFIED FALL, INITIAL ENCOUNTER (3) IDDM (insulin dependent diabetes mellitus) Code(s): E11.9 - TYPE 2 DIABETES MELLITUS WITHOUT COMPLICATIONS; Z79.4 - [facility] (CURRENT) USE OF INSULIN (4) Sepsis Code(s): A41.9 - SEPSIS, UNSPECIFIED ORGANISM (5) Arthritis, rheumatoid Code(s): M06.9 - RHEUMATOID ARTHRITIS, UNSPECIFIED (6) Recurrent falls Code(s): R29.6 - REPEATED FALLS wbc is willian' plan continue iv abx will see what is wbc tomorrow probably will switch to oral tomorrow wound care
[2017-09-25 12:24] LABS: CHLORIDE 103 mmol/L (98-107); SODIUM 138 mmol/L (136-145)
[2017-09-25 12:35] LABS: ANION GAP 8 (8-16); BLOOD UREA NITROGEN 17 mg/dL (7-18); CALCIUM 7.9 mg/dL (8.5-10.1); CO2 27 mmol/L (21-32); CREATININE 0.6 mg/dL (0.55-1.02); GLUCOSE,RANDOM 248 mg/dL (74-106)
--- NOTE | 2017-09-25 13:11 | PN ---
Progress Note, Physician - Current Medication List Current Medications: Active Medications Ascorbic Acid (Vitamin C -) 500 mg PO BID [facility] Last Admin: 09/25/17 10:00 Dose: 500 mg Colchicine (Colcrys -) 0.6 mg PO BID [facility] Stop: 09/27/17 06:00 Last Admin: 09/25/17 10:00 Dose: 0.6 mg Docusate Sodium (Colace -) 100 mg PO BID [facility] Last Admin: 09/25/17 10:00 Dose: 100 mg Ferrous Gluconate (Fergon -) 324 mg PO BID [facility] Last Admin: 09/25/17 10:00 Dose: 324 mg Heparin Sodium (Porcine) (Heparin -) 5,000 unit SQ TID [facility] Last Admin: 09/25/17 05:46 Dose: 5,000 unit Piperacillin Sod/Tazobactam (Sod 3.375 gm/ Dextrose) 100 mls @ 200 mls/hr IVPB Q8H-IV [facility] PRN Reason: Protocol Last Admin: 09/25/17 10:06 Dose: 200 mls/hr Indomethacin (Indocin -) 50 mg PO BID [facility] Last Admin: 09/25/17 10:00 Dose: 50 mg Insulin Aspart (Novolog Vial Sliding Scale -) 1 vial SQ Q4HPO [facility] PRN Reason: Protocol Last Admin: 09/25/17 10:12 Dose: Not Given Loratadine (Claritin -) 10 mg PO DAILY [facility] Last Admin: 09/25/17 10:05 Dose: 10 mg Losartan Potassium (Cozaar -) 100 mg PO DAILY [facility] Last Admin: 09/25/17 10:00 Dose: 100 mg Ondansetron HCl (Zofran Injection) 4 mg IVPUSH Q6H PRN PRN Reason: NAUSEA AND/OR VOMITING Pantoprazole Sodium (Protonix Iv) 40 mg IVPUSH DAILY [facility] Last Admin: 09/25/17 10:06 Dose: 40 mg Ranitidine HCl (Zantac -) 150 mg PO DAILY [facility] Last Admin: 09/25/17 10:00 Dose: 150 mg Rosuvastatin Calcium (Crestor -) 5 mg PO HS [facility] Last Admin: 09/24/17 21:53 Dose: 5 mg Sucralfate (Carafate Oral Suspension -) 1 gm PO BID [facility] Last Admin: 09/25/17 10:31 Dose: 1 gm Sumatriptan Succinate (Imitrex -) 50 mg PO PRN PRN PRN Reason: PAIN Tramadol HCl (Ultram -) 50 mg PO TID [facility] Last Admin: 09/25/17 05:46 Dose: 50 mg - Objective Vital Signs: Vital Signs Temperature 98.9 F 09/25/17 05:39 Pulse Rate 89 09/25/17 05:39 Respiratory Rate 20 09/25/17 08:54 Blood Pressure 129/67 09/25/17 05:39 O2 Sat by Pulse Oximetry (%) 99 09/25/17 08:54 Labs: CBC, BMP 09/25/17 11:40 09/25/17 11:40 INR, PTT INR 1.06 (0.82-1.09) 09/19/17 07:20 Problem List - Problems (1) Hip fracture, intertrochanteric Code(s): S72.143A - DISPLACED INTERTROCHANTERIC FRACTURE OF UNSP FEMUR, INIT (2) Fall Code(s): W19.XXXA - UNSPECIFIED FALL, INITIAL ENCOUNTER (3) IDDM (insulin dependent diabetes mellitus) Code(s): E11.9 - TYPE 2 DIABETES MELLITUS WITHOUT COMPLICATIONS; Z79.4 - [facility] (CURRENT) USE OF INSULIN (4) Sepsis Code(s): A41.9 - SEPSIS, UNSPECIFIED ORGANISM (5) Arthritis, rheumatoid Code(s): M06.9 - RHEUMATOID ARTHRITIS, UNSPECIFIED (6) Recurrent falls Code(s): R29.6 - REPEATED FALLS
--- NOTE | 2017-09-25 16:51 | PN ---
Progress Note (short form) - Note Progress Note: Pt sitting comfortably in chair. Last Vital Signs Temp Pulse Resp BP Pulse Ox 97.3 F L 88 22 130/86 99 09/25/17 15:26 09/25/17 15:26 09/25/17 15:26 09/25/17 15:26 09/25/17 08:54 LLE dressings removed. no active drainage, coagulated blood no sign of infection calf is swollen but nontender ehl fhl ta g s intact sens int to LT 2+ dp Abnormal Lab Results 09/21/17 09/24/17 09/25/17 21:00 22:00 11:40 WBC 12.9 H RBC 3.47 L D Hgb 10.4 L D Hct 31.9 L D RDW 16.1 H D Random Glucose Calcium Crossmatch See Detail See Detail 09/25/17 11:40 WBC RBC Hgb Hct RDW Random Glucose 248 H Calcium 7.9 L Crossmatch A/p: 81f s/p L hip IM nail -no sign of active bleeding at this point -no evidence for any infection at op site -dressing changed today -ordered duplex due to leg swelling, most likely post traumatic though -can use compression stockings for swelling
[2017-09-25] MEDS: ROSUVASTATIN CA 5 MG TABLET (FP) PO SCH (21:20)
[2017-09-26] MEDS: PIPERACILLIN/TAZOB 3.375 GM 3.375 GM in DEXTROSE 5%-WATER - 100 ML IVPB SCH ×2 (01:46→10:16)
[2017-09-26] MEDS: INSULIN SLIDING SCALE (NOVOLOG) 1 VIAL SQ SCH ×5 (02:24→17:40)
[2017-09-26] MEDS ORDERED: PT OWN MED DRAWER 7, Y5N ONE (04:53)
[2017-09-26] MEDS: traMADol HCL 50 MG TABLET PO SCH ×2 (05:30→13:32)
[2017-09-26] MEDS: HEPARIN NA (PORCINE) 5,000 UNITS/ML 1ML VIAL SQ SCH ×2 (05:36→13:33)
[2017-09-26 09:06] LABS: BASO % 0.5 % (0-2.0); EOS % 6.3 % (0-4.5); HEMATOCRIT 33.4 % (32.4-45.2); HEMOGLOBIN 10.8 GM/dL (10.7-15.3); LYMPH % 14.2 % (8-40); MCH 29.8 pg (25.7-33.7); MCHC 32.3 g/dl (32.0-36.0); MEAN CELL VOLUME 92.3 fl (80-96); MEAN PLT VOLUME 7.4 fl (7.5-11.1); MONO % 9.9 % (3.8-10.2); NEUT % 69.1 % (42.8-82.8); PLATELET COUNT 387 K/MM3 (134-434); RBC 3.62 M/mm3 (3.60-5.2); RDW 16.6 % (11.6-15.6); WHITE BLOOD COUNT 12.3 K/mm3 (4.0-10.0)
[2017-09-26 09:36] LABS: ALBUMIN 2.3 g/dl (3.4-5.0); ANION GAP 6 (8-16); BLOOD UREA NITROGEN 12 mg/dL (7-18); CALCIUM 8.2 mg/dL (8.5-10.1); CHLORIDE 105 mmol/L (98-107); CO2 31 mmol/L (21-32); CREATININE 0.6 mg/dL (0.55-1.02); GLUCOSE,RANDOM 181 mg/dL (74-106); POTASSIUM 3.9 mmol/L (3.5-5.1); SGOT/AST 29 U/L (15-37); SGPT/ALT 31 U/L (12-78); SODIUM 142 mmol/L (136-145)
[2017-09-26 09:38] LABS: ALK PHOS 75 U/L (45-117); BILIRUBIN,TOTAL 1.3 mg/dL (0.2-1.0); TOT PROT 5.4 g/dl (6.4-8.2)
[2017-09-26] MEDS: LOSARTAN POTASSIUM 50 MG TABLET (FP) PO SCH (10:16)
[2017-09-26] MEDS: COLCHICINE 0.6 MG TABLET (FP) PO SCH (10:17)
[2017-09-26] MEDS: RANITIDINE HCL 150 MG TABLET (FP) PO SCH (10:17)
[2017-09-26] MEDS: ASCORBIC ACID 500 MG TABLET (FP) PO SCH (10:17)
[2017-09-26] MEDS: LORATADINE 10 MG TABLET PO SCH (10:17)
[2017-09-26] MEDS: DOCUSATE SODIUM 100 MG CAPSULE (FP) PO SCH (10:17)
[2017-09-26] MEDS: SUCRALFATE 1 GM/10 ML UNIT DOSE CUPS PO SCH (10:18)
[2017-09-26] MEDS: INDOMETHACIN 50 MG CAPSULE PO SCH (10:19)
[2017-09-26] MEDS: PANTOPRAZOLE SODIUM 40 MG VIAL IVPUSH SCH (10:20)
--- NOTE | 2017-09-26 11:05 | PN ---
Progress Note, Physician History of Present Illness: patient stable no new issues wound seen by ortho - Current Medication List Current Medications: Active Medications Ascorbic Acid (Vitamin C -) 500 mg PO BID [facility] Last Admin: 09/26/17 10:17 Dose: 500 mg Colchicine (Colcrys -) 0.6 mg PO BID [facility] Stop: 09/27/17 06:00 Last Admin: 09/26/17 10:17 Dose: 0.6 mg Docusate Sodium (Colace -) 100 mg PO BID [facility] Last Admin: 09/26/17 10:17 Dose: 100 mg Ferrous Gluconate (Fergon -) 324 mg PO BID [facility] Last Admin: 09/25/17 21:18 Dose: 324 mg Heparin Sodium (Porcine) (Heparin -) 5,000 unit SQ TID [facility] Last Admin: 09/26/17 05:36 Dose: 5,000 unit Indomethacin (Indocin -) 50 mg PO BID [facility] Last Admin: 09/26/17 10:19 Dose: 50 mg Insulin Aspart (Novolog Vial Sliding Scale -) 1 vial SQ Q4HPO [facility] PRN Reason: Protocol Last Admin: 09/26/17 10:20 Dose: Not Given Loratadine (Claritin -) 10 mg PO DAILY [facility] Last Admin: 09/26/17 10:17 Dose: 10 mg Losartan Potassium (Cozaar -) 100 mg PO DAILY [facility] Last Admin: 09/26/17 10:16 Dose: 100 mg Ondansetron HCl (Zofran Injection) 4 mg IVPUSH Q6H PRN PRN Reason: NAUSEA AND/OR VOMITING Pantoprazole Sodium (Protonix Iv) 40 mg IVPUSH DAILY [facility] Last Admin: 09/26/17 10:20 Dose: 40 mg Ranitidine HCl (Zantac -) 150 mg PO DAILY [facility] Last Admin: 09/26/17 10:17 Dose: 150 mg Rosuvastatin Calcium (Crestor -) 5 mg PO HS [facility] Last Admin: 09/25/17 21:20 Dose: 5 mg Sucralfate (Carafate Oral Suspension -) 1 gm PO BID [facility] Last Admin: 09/26/17 10:18 Dose: 1 gm Sumatriptan Succinate (Imitrex -) 50 mg PO PRN PRN PRN Reason: PAIN Last Admin: 09/26/17 05:09 Dose: 50 mg Tramadol HCl (Ultram -) 50 mg PO TID [facility] Last Admin: 09/26/17 05:30 Dose: 50 mg - Objective Vital Signs: Vital Signs Temperature 97.9 F 09/26/17 08:40 Pulse Rate 90 09/26/17 08:40 Respiratory Rate 20 09/26/17 08:41 Blood Pressure 131/63 09/26/17 08:40 O2 Sat by Pulse Oximetry (%) 99 09/26/17 08:41 Constitutional: Yes: No Distress, Calm Cardiovascular: Yes: Regular Rate and Rhythm Respiratory: Yes: Regular, CTA Bilaterally Gastrointestinal: Yes: Normal Bowel Sounds, Soft Musculoskeletal: Yes: Other Extremities: Yes: Other Wound/Incision: Yes: Dressing Dry and Intact Neurological: Yes: Alert, Oriented Labs: CBC, BMP 09/26/17 08:56 09/26/17 08:56 INR, PTT INR 1.06 (0.82-1.09) 09/19/17 07:20 Assessment/Plan Problem List - Problems (1) Hip fracture, intertrochanteric Code(s): S72.143A - DISPLACED INTERTROCHANTERIC FRACTURE OF UNSP FEMUR, INIT (2) Fall Code(s): W19.XXXA - UNSPECIFIED FALL, INITIAL ENCOUNTER (3) IDDM (insulin dependent diabetes mellitus) Code(s): E11.9 - TYPE 2 DIABETES MELLITUS WITHOUT COMPLICATIONS; Z79.4 - [facility] (CURRENT) USE OF INSULIN (4) Sepsis Code(s): A41.9 - SEPSIS, UNSPECIFIED ORGANISM (5) Arthritis, rheumatoid Code(s): M06.9 - RHEUMATOID ARTHRITIS, UNSPECIFIED (6) Recurrent falls Code(s): R29.6 - REPEATED FALLS wbc is willian' plan will change to oral abx continue oral abx for 5 days wound care rest as per primary
[2017-09-26] MEDS: FERROUS GLUCONATE 324 MG TAB (FP) PO SCH (13:34)
[2017-09-26 15:23] VITALS: BP 127/59; PULSE 85; TEMP 9.6
--- NOTE | 2017-09-26 15:41 | DS ---
Physical Examination Vital Signs: Vital Signs Temperature 9.6 F L 09/26/17 13:15 Pulse Rate 85 09/26/17 13:15 Respiratory Rate 18 09/26/17 13:15 Blood Pressure 127/59 09/26/17 13:15 O2 Sat by Pulse Oximetry (%) 99 09/26/17 08:41 Constitutional: Yes: No Distress Eyes: Yes: Conjunctiva Clear, EOM Intact HENT: Yes: Atraumatic, Normocephalic Neck: Yes: Supple, Trachea Midline Cardiovascular: Yes: Regular Rate and Rhythm, S1, S2 Respiratory: Yes: Regular, CTA Bilaterally Gastrointestinal: Yes: Normal Bowel Sounds, Soft Musculoskeletal: Yes: Other (Lt Femur) Edema: No Peripheral Pulses WNL: Yes Wound/Incision: Yes: Other (Lt Femur Nailing) Neurological: Yes: Alert, Oriented, Cran Nerves II-XII Intact Labs: CBC, BMP 09/26/17 08:56 09/26/17 08:56 Discharge Summary Reason For Visit: HIP FRACTURE; INTERTROCHANTRIC Current Active Problems Arthritis, rheumatoid (Acute) Fall (Acute) Hip fracture, intertrochanteric (Acute) 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 (Acute) IDDM (insulin dependent diabetes mellitus) (Acute) Leukocytosis (Acute) Recurrent falls (Acute) Sepsis (Acute) Hospital Course: 81f s/p L hip IM nail S/P 2units of PRBC for Acute Blood loss during surgery B/L Duplex Negative for DVT Pt will have Ortho FU Condition: Stable - Instructions Referrals: Raudel Craven MD [Primary Care Provider] - Prashanth Maria MD [Staff Physician] - Disposition: LONG-TERM FACILITY - Home Medications Comprehensive Discharge Medication List: Ambulatory Orders Cetirizine HCl [Zyrtec -] 10 mg PO DAILY 09/18/17 Insulin Lispro [Humalog] See Protocol SQ ASDIR 09/18/17 Losartan Potassium [Cozaar] 100 mg PO DAILY 09/18/17 Ranitidine HCl 150 mg PO DAILY 09/18/17 Rosuvastatin Calcium [Crestor] 5 mg PO HS 09/18/17 Sucralfate [Carafate] 1 gm PO BID 09/18/17 Sumatriptan Succinate [Imitrex -] 50 mg PO PRN PRN 09/18/17 Tramadol HCl 50 mg PO TID 09/18/17 [id number] PO daily [id number] PO BID 7 days cholchicine 0.6 Po daily colace 300 PO daily Feso4 325 PO BID Vit C 500 PO BID Sucralfate 1 g Po BID Pt will use Insulin pump as Directed Pt Knows how to use it Pepsid 20 Po BID Heparin 5000 Units TID DVT Prophylaxis
--- NOTE | 2017-09-26 17:05 | PN ---
Progress Note, Physician Chief Complaint: Pt is a 81 y/o F with PMH IDDM (uses insulin pump), GERD, OA of the knees, ?RA, HTN, benign functional heart murmur who was BIBEMS after slipping and falling at home approximately 1 hour ago. Pt was going down steps and fell on her left hip. Pt complains of left hip and leg pain, especially when trying to move the limb. Denies numbness and tingling in the extremities. Pt denies LOC, aura, lightheadedness, vertigo. Pt not on anticoagulation. History of Present Illness: Pt is a 81 y/o F with PMH IDDM (uses insulin pump), GERD, OA of the knees, ?RA, HTN, benign functional heart murmur who was BIBEMS after slipping and falling at home approximately 1 hour ago. Pt was going down steps and fell on her left hip. Pt complains of left hip and leg pain, especially when trying to move the limb. Denies numbness and tingling in the extremities. Pt denies LOC, aura, lightheadedness, vertigo. Pt not on anticoagulation. Pt is going to OR now Spoke with ID also - Current Medication List Current Medications: Active Medications Amoxicillin/Clavulanate Potassium (Augmentin - 875mg Tablet) 1 tab PO BID@0800, 1730 [facility] Ascorbic Acid (Vitamin C -) 500 mg PO BID [facility] Last Admin: 09/26/17 10:17 Dose: 500 mg Colchicine (Colcrys -) 0.6 mg PO BID [facility] Stop: 09/27/17 06:00 Last Admin: 09/26/17 10:17 Dose: 0.6 mg Docusate Sodium (Colace -) 100 mg PO BID [facility] Last Admin: 09/26/17 10:17 Dose: 100 mg Ferrous Gluconate (Fergon -) 324 mg PO BID [facility] Last Admin: 09/26/17 13:34 Dose: 324 mg Heparin Sodium (Porcine) (Heparin -) 5,000 unit SQ TID [facility] Last Admin: 09/26/17 13:33 Dose: 5,000 unit Indomethacin (Indocin -) 50 mg PO BID [facility] Last Admin: 09/26/17 10:19 Dose: 50 mg Insulin Aspart (Novolog Vial Sliding Scale -) 1 vial SQ Q4HPO [facility] PRN Reason: Protocol Last Admin: 09/26/17 13:34 Dose: Not Given Loratadine (Claritin -) 10 mg PO DAILY [facility] Last Admin: 09/26/17 10:17 Dose: 10 mg Losartan Potassium (Cozaar -) 100 mg PO DAILY [facility] Last Admin: 09/26/17 10:16 Dose: 100 mg Ondansetron HCl (Zofran Injection) 4 mg IVPUSH Q6H PRN PRN Reason: NAUSEA AND/OR VOMITING Pantoprazole Sodium (Protonix Iv) 40 mg IVPUSH DAILY [facility] Last Admin: 09/26/17 10:20 Dose: 40 mg Ranitidine HCl (Zantac -) 150 mg PO DAILY [facility] Last Admin: 09/26/17 10:17 Dose: 150 mg Rosuvastatin Calcium (Crestor -) 5 mg PO HS [facility] Last Admin: 09/25/17 21:20 Dose: 5 mg Sucralfate (Carafate Oral Suspension -) 1 gm PO BID [facility] Last Admin: 09/26/17 10:18 Dose: 1 gm Sumatriptan Succinate (Imitrex -) 50 mg PO PRN PRN PRN Reason: PAIN Last Admin: 09/26/17 05:09 Dose: 50 mg Tramadol HCl (Ultram -) 50 mg PO TID [facility] Last Admin: 09/26/17 13:32 Dose: 50 mg - Objective Vital Signs: Vital Signs Temperature 9.6 F L 09/26/17 13:15 Pulse Rate 85 09/26/17 13:15 Respiratory Rate 18 09/26/17 13:15 Blood Pressure 127/59 09/26/17 13:15 O2 Sat by Pulse Oximetry (%) 99 09/26/17 08:41 Constitutional: Yes: No Distress Eyes: Yes: Conjunctiva Clear, EOM Intact HENT: Yes: Atraumatic, Normocephalic Neck: Yes: Supple, Trachea Midline Cardiovascular: Yes: Regular Rate and Rhythm, S1, S2 Respiratory: Yes: Regular, CTA Bilaterally Gastrointestinal: Yes: Normal Bowel Sounds, Soft Labs: CBC, BMP 09/26/17 08:56 09/26/17 08:56 INR, PTT INR 1.06 (0.82-1.09) 09/19/17 07:20 Problem List - Problems (1) Hip fracture, intertrochanteric Code(s): S72.143A - DISPLACED INTERTROCHANTERIC FRACTURE OF UNSP FEMUR, INIT (2) Fall Code(s): W19.XXXA - UNSPECIFIED FALL, INITIAL ENCOUNTER (3) IDDM (insulin dependent diabetes mellitus) Code(s): E11.9 - TYPE 2 DIABETES MELLITUS WITHOUT COMPLICATIONS; Z79.4 - [facility] (CURRENT) USE OF INSULIN (4) Sepsis Code(s): A41.9 - SEPSIS, UNSPECIFIED ORGANISM (5) Arthritis, rheumatoid Code(s): M06.9 - RHEUMATOID ARTHRITIS, UNSPECIFIED (6) Recurrent falls Code(s): R29.6 - REPEATED FALLS
[2017-09-26] MEDS ORDERED: AMOX TR/POT CLAV 875MG/125MG TABLETS (FP) PO SCH (17:30)
== END 2017-09-26 18:19 | DRG 481 ==
LOC: JER 14:00 → JERBED 18:41 → J6S 09-19 15:21
PROVIDERS: ADMIT Hospitalist; ATTEND Internal Medicine
PROC: 0QS706Z Reposition Left Upper Femur with Intramedullary Internal Fixation Device, Open Approach (ICD-10-PCS; principal; 2017-09-19 17:00)
PROC: 30233N1 Transfusion of Nonautologous Red Blood Cells into Peripheral Vein, Percutaneous Approach (ICD-10-PCS; 2017-09-25)
DX: S72.142A Displaced intertrochanteric fracture of left femur, initial encounter for closed fracture (principal); D62 Acute posthemorrhagic anemia; M17.9 Osteoarthritis of knee, unspecified; Z79.4 Long term (current) use of insulin; K21.9 Gastro-esophageal reflux disease without esophagitis; M17.0 Bilateral primary osteoarthritis of knee; I10 Essential (primary) hypertension; W10.8XXA Fall (on) (from) other stairs and steps, initial encounter; Y93.89 Activity, other specified; Y92.098 Other place in other non-institutional residence as the place of occurrence of the external cause; Y99.8 Other external cause status; M06.9 Rheumatoid arthritis, unspecified; E03.9 Hypothyroidism, unspecified; R29.6 Repeated falls; E06.3 Autoimmune thyroiditis
CPT/HCPCS: 36415; 36430; 71045-TC; 73523-TC; 73552-TC-LT; 73560-TC-RT; 76000-TC; 80048; 80053; 82962; 85025; 85027; 85610; 85730; 86850; 86900; 86901; 86922; 93005; 93010; 93306-TC; 93970-TC; 94760; 97116-GP; 97162-GP; 99285-25; J1644; P9038; P9058

== ENCOUNTER 2018-05-16 12:23 | Emergency (ER) | payer OTHER, MEDICARE ==
[2018-05-16 12:31] VITALS: BP 152/75; PULSE 91; TEMP 98.7; BMI 26.5
[2018-05-16] MEDS ORDERED: traMADol HCL 50 MG TABLET ONE (13:18)
[2018-05-16] MEDS ORDERED: traMADol HCL 50 MG TABLET PO ONE (13:18)
--- NOTE | 2018-05-16 13:18 | PDOC ---
History of Present Illness - General History Source: Patient Exam Limitations: No Limitations - History of Present Illness Initial Comments: 05/16/18 14:25 The patient is an 82-year-old female present to the emergency department with an injury. The patient states the injury occurred yesterday when she was trying to brush her hair. The patient indicates the brush flew out of her hand, as she was trying to grab it, the patient injured her R. arm on the bathroom door. The patient reports she tried to alleviate the swelling with ice, with mild relief. The patient reports today's been experiencing increased pain in the arm , with increased swelling. The patient reports she took 2 advil with breakfast, without relief. No paresthesia. Denies numbness, tingling or loss of sensation. PMHx: Benign heart murmur, IDDM (uses insulin pump), HTN, HLD, Diverticulitis, hx of gastritis, OA (BL knees) PSHx: None reported SHx: None reported PCP: Prashanth Hanley MD <Graciela Fajardo - Last Filed: 05/16/18 14:25> <Steffany Topete - Last Filed: 05/17/18 09:44> - General Chief Complaint: Injury Stated Complaint: INJURY Time Seen by Provider: 05/16/18 13:15 Past History <Graciela Fajardo - Last Filed: 05/16/18 14:25> - Past Medical History Anemia: No Asthma: No Cancer: No Cardiac Disorders: Yes (HX HEART MURMUR) CVA: No COPD: No CHF: No DVT: No Dementia: No Diabetes: Yes (PT HAS OWN INSULIN PUMP-NOT ON) GI Disorders: Yes Disorders: No HTN: Yes Hypercholesterolemia: Yes Liver Disease: No Seizures: No Thyroid Disease: No - Surgical History Abdominal Surgery: No Appendectomy: No Cardiac Surgery: No Cholecystectomy: No Lung Surgery: No Neurologic Surgery: No Orthopedic Surgery: No - Immunization History Immunization Up to Date: No - Suicide/Smoking/Psychosocial Hx Smoking History: Never smoked Have you smoked in the past 12 months: No Hx Alcohol Use: No Drug/Substance Use Hx: No Substance Use Type: None Hx Substance Use Treatment: No <Steffany Topete - Last Filed: 05/17/18 09:44> - Past Medical History Allergies/Adverse Reactions: Allergies Allergy/AdvReac Type Severity Reaction Status Date / Time No Known Allergies Allergy Verified 05/16/18 12:31 Home Medications: Ambulatory Orders Cetirizine HCl [Zyrtec -] 10 mg PO DAILY 09/18/17 Insulin Lispro [Humalog] See Protocol SQ ASDIR 09/18/17 Losartan Potassium [Cozaar] 300 mg PO DAILY 09/18/17 Ranitidine HCl 150 mg PO DAILY 09/18/17 Rosuvastatin Calcium [Crestor] 5 mg PO HS 09/18/17 Sucralfate [Carafate] 1 gm PO BID 09/18/17 Sumatriptan Succinate [Imitrex -] 50 mg PO PRN PRN 09/18/17 Tramadol HCl 50 mg PO PRN PRN 09/18/17 traMADol HCL [Ultram -] 50 mg PO Q6H PRN #16 tablet MDD 4 tabs 05/16/18 Review of Systems - Review of Systems Comments:: 05/16/18 14:26 GENERAL/CONSTITUTIONAL: No fever or chills. No weakness. HEAD, EYES, EARS, NOSE AND THROAT: No change in vision. No ear pain or discharge. No sore throat. CARDIOVASCULAR: No chest pain or shortness of breath. RESPIRATORY: No cough, wheezing, or hemoptysis. GASTROINTESTINAL: No nausea, vomiting, diarrhea or constipation. GENITOURINARY: No dysuria, frequency, or change in urination. MUSCULOSKELETAL: (+) R. arm pain with swelling. No joint or muscle swelling or pain. No neck or back pain. SKIN: No rash NEUROLOGIC: No headache, vertigo, loss of consciousness, or change in strength/ sensation. ENDOCRINE: No increased thirst. No abnormal weight change. HEMATOLOGIC/LYMPHATIC: No anemia, easy bleeding, or history of blood clots. ALLERGIC/IMMUNOLOGIC: No hives or skin allergy. <Graciela Fajardo - Last Filed: 05/16/18 14:25> *Physical Exam - Vital Signs Last Vital Signs Temp Pulse Resp BP Pulse Ox 98.7 F 91 H 18 152/75 100 05/16/18 12:29 05/16/18 12:29 05/16/18 12:29 05/16/18 12:29 05/16/18 12:29 <Graciela Fajardo - Last Filed: 05/16/18 14:25> - Vital Signs Last Vital Signs Temp Pulse Resp BP Pulse Ox 98.7 F 91 H 18 152/75 100 05/16/18 12:29 05/16/18 12:29 05/16/18 12:29 05/16/18 12:29 05/16/18 12:29 - Physical Exam Comments: GENERAL: Awake, alert, and fully oriented, in no acute distress HEAD: No signs of trauma EYES: PERRLA, EOMI, sclera anicteric, conjunctiva clear ENT: Auricles normal inspection, hearing grossly normal, nares patent, oropharynx clear without exudates. Moist mucosa NECK: Normal ROM, supple, no lymphadenopathy, JVD, or masses LUNGS: Breath sounds equal, clear to auscultation bilaterally. No wheezes, and no crackles HEART: Regular rate and rhythm, normal S1 and S2, no murmurs, rubs or gallops ABDOMEN: Soft, nontender, normoactive bowel sounds. No guarding, no rebound. No masses EXTREMITIES: R wrist with deformity. +Ecchymosis to the hand and forearm. Dec ROM to the R wrist due to pain. Remainder of extremities with normal range of motion, no edema. No clubbing or cyanosis. No cords, erythema, or tenderness NEUROLOGICAL: Cranial nerves II through XII grossly intact. Normal speech, normal gait SKIN: Warm, Dry, normal turgor, no rashes or lesions noted. <Steffany Topete - Last Filed: 05/17/18 09:44> Procedures - Splinting Splint Location: Right: Wrist Pre-Proc Neuro Vasc Exam: normal Hand-Made Type: orthoglass Splint Type: Yes: Shonna Quintero Post-Proc Neuro Vasc Exam: normal Beny Bandage: 3" Sling: Yes Complications: No <Steffany Topete - Last Filed: 05/17/18 09:44> ED Treatment Course - Medications Given in the ED: ED Medications Discontinued Medications Generic Name Dose Route Start Last Admin Trade Name Freq PRN Reason Stop Dose Admin Tramadol HCl 50 mg 05/16/18 13:18 05/16/18 13:22 Ultram - PO 05/16/18 13:19 50 mg ONCE ONE Administration <Graciela Fajardo - Last Filed: 05/16/18 14:25> Medical Decision Making - Medical Decision Making Splint placed. Fracture occurred yesterday, so there is significant swelling. Will not attempt a reduction, as she is NV intact. Will refer to Dr. Garcia for hand as an outpatient, counseled her that she will need to be followed up within 1 week. <Steffany Topete - Last Filed: 05/17/18 09:44> *DC/Admit/Observation/Transfer - Attestations Scribe Attestion: 05/16/18 14:29 Documentation prepared by Graciela Fajardo, acting as hospital medical biller for Steffany Topete MD. <Graciela Fajardo - Last Filed: 05/16/18 14:25> - Discharge Dispostion Decision to Admit order: No <Steffany Topete - Last Filed: 05/17/18 09:44> Diagnosis at time of Disposition: Radius distal fracture Qualifiers: Encounter type: initial encounter Fracture type: closed Fracture morphology: unspecified fracture morphology Laterality: right Qualified Code(s): S52.501A - Unspecified fracture of the lower end of right radius, initial encounter for closed fracture - Discharge Dispostion Disposition: HOME Condition at time of disposition: Stable - Prescriptions Prescriptions: traMADol HCL [Ultram -] 50 mg PO Q6H PRN #16 tablet MDD 4 tabs PRN Reason: Severe Pain - Referrals Referrals: Anthony Garcia MD [Staff Physician] - - Patient Instructions Printed Discharge Instructions: DI for Distal Radius Fracture Additional Instructions: KEEP SLING IN PLACE DIRECTED. TRAMADOL 1 TAB EVERY 6 HOURS NEEDED FOR PAIN. FOLLOW UP WITH DR. GARCIA, CALL ON FRIDAY FOR APPOINTMENT. IF YOU HAVE SEVERE PAIN, CHANGE IN COLOR OF YOUR FINGERS, OR TINGLING, REMOVE THE BENY WRAPS AND LOOSEN THEM, THEN REAPPLY. YOUR SPLINT WILL MOLD TO YOUR ARM, SO IT WILL FIT BACK ON AGAIN. COVER ARM IN PLASTIC AND TAPE IN PLACE TO KEEP SPLINT FROM GETTING WET IN SHOWER (OR CAN TAKE BATH ALTERNATIVELY, MAY BE EASIER ). - Post Discharge Activity
== END 2018-05-16 15:06 | disposition home or self-care (01) ==
LOC: JER 12:23 → JERFT 12:23 → JER 15:06
DX: S52.501A Unspecified fracture of the lower end of right radius, initial encounter for closed fracture (principal); W22.8XXA Striking against or struck by other objects, initial encounter; Y93.89 Activity, other specified; Y92.018 Other place in single-family (private) house as the place of occurrence of the external cause; Y99.8 Other external cause status; R01.1 Cardiac murmur, unspecified; I10 Essential (primary) hypertension; E78.00 Pure hypercholesterolemia, unspecified; E11.9 Type 2 diabetes mellitus without complications; Z79.4 Long term (current) use of insulin; Z96.41 Presence of insulin pump (external) (internal); M17.0 Bilateral primary osteoarthritis of knee; Z87.19 Personal history of other diseases of the digestive system
CPT/HCPCS: 73110-TC-RT-FY; 73130-TC-RT-FY; 99281-25

== ENCOUNTER 2018-05-27 08:28 | Day surgery (SDC) | payer OTHER, MEDICARE ==
[2018-05-25 09:18] VITALS: BMI 27.4
[2018-05-27] MEDS ORDERED: ceFAZolin SODIUM 1 GM VIAL ONE (09:48)
[2018-05-27] MEDS ORDERED: MIDAZOLAM HCL 2 MG/2 ML SINGLE DOSE VIAL ONE (09:51)
[2018-05-27] MEDS ORDERED: PROPOFOL 20 ML ONE (09:51)
[2018-05-27] MEDS ORDERED: DEXAMETHASONE SOD PHOSPHATE 4 MG/1 ML VIAL ONE (10:01)
[2018-05-27] MEDS ORDERED: ONDANSETRON 4 MG/2 ML VIAL ONE (10:01)
[2018-05-27] MEDS ORDERED: GUM MASTIC/STORAX/MSAL/ALCOHOL 1 DRP DROPSBTL MC ONE (10:41)
[2018-05-27] MEDS ORDERED: PROMETHAZINE HCL 25 MG/1 ML VIAL IVPUSH PRN (11:04)
[2018-05-27] MEDS ORDERED: oxyCODONE HCL 5 MG TABLET PO PRN ×2 (11:04)
[2018-05-27] MEDS ORDERED: ONDANSETRON 4 MG/2 ML VIAL IVPUSH PRN (11:04)
--- NOTE | 2018-05-27 11:52 | OP ---
DATE OF OPERATION: 05/27/2018 PREOPERATIVE DIAGNOSIS: Right comminuted displaced intraarticular distal radius fracture. POSTOPERATIVE DIAGNOSIS: Right comminuted displaced intraarticular distal radius fracture. OPERATIVE PROCEDURE: 1. Open reduction internal fixation of right distal radius fracture with internal fixation of 3 or more fragments. 2. Right brachioradialis tenotomy. SURGEON: Estella Euceda MD FENCE GATE ASSEMBLER: GEOVANNI Pérez ANESTHESIA: Regional and general. COMPLICATIONS: None. ESTIMATED BLOOD LOSS: Minimal. INDICATIONS: The patient is an 82-year-old female with the above findings, indicated for operative treatment. The risks, benefits, and alternatives were discussed with the patient, and proper informed consent was obtained. DESCRIPTION OF PROCEDURE: After proper identification of the patient and the correct operative site, the patient was brought to the operating room and placed supine on the operating table. All bony prominences were well padded. Regional anesthesia had been given, and general anesthesia was given. Intravenous antibiotics were given. Time-out procedure was performed. Right upper extremity was prepped and draped in the usual sterile fashion. Esmarch bandage used to exsanguinate the right upper extremity. Tourniquet was inflated to 250 mmHg. A longitudinal incision was made over the volar aspect of the distal radius in line with flexor carpi radialis tendon. Flexor carpi radialis tendon along with the contents of the carpal canal were bluntly and gently retracted in an ulnarward direction for the remainder of the procedure. Pronator quadratus was divided longitudinally and elevated off the distal radius. Highly comminuted displaced fracture was noted. This was able to be reduced and then held with an Acumed Acu-Loc distal radius plate with distal locking screws and proximal nonlocking bicortical screws. This provided secure stable fixation of the fracture and satisfactory alignment. Perfect reduction was not achievable due to the high level of comminution which would not allow screw purchase in the dorsal cortex to hold it up. Therefore, we achieved slightly less than neutral alignment. Patient had full motion of the wrist and forearm and no instability of the DRUJ or scapholunate interval. Wound was irrigated and repaired in layers using 4-0 Vicryl and 4-0 Monocryl sutures. Steri-Strips, sterile dressings, and a wrist splint were placed. The patient was reversed from anesthesia and brought to the recovery room in stable condition. She tolerated the procedure well. Popeye Jasmine, the cable splicer assistant, was integral throughout the procedure. Procedure could not have been performed without a skilled operative cable splicer assistant. ESTELLA EUCEDA M.D. COLLIN/[id number]
[2018-05-27 12:06] VITALS: TEMP 97.6
[2018-05-27 13:18] VITALS: BP 133/62; PULSE 84
== END 2018-05-27 12:55 | disposition home or self-care (01) ==
LOC: FASU 08:28
PROVIDERS: ATTEND Orthopaedic Surgery Hand Surgery
PROC: 0LN50ZZ Release Right Lower Arm and Wrist Tendon, Open Approach (ICD-10-PCS; 2018-05-27)
PROC: 0PSH04Z Reposition Right Radius with Internal Fixation Device, Open Approach (ICD-10-PCS; principal; 2018-05-27 09:59)
DX: S52.531A Colles' fracture of right radius, initial encounter for closed fracture (principal); X58.XXXA Exposure to other specified factors, initial encounter; Y93.9 Activity, unspecified; Y92.9 Unspecified place or not applicable
CPT/HCPCS: 73130-TC-RT-FY; 82962; 94760

== ENCOUNTER 2020-10-25 16:04 | Emergency (ER) | payer OTHER, MEDICARE ==
[2020-10-25 16:36] VITALS: BP 153/80; PULSE 105; TEMP 97.9; BMI 27.4
[2020-10-25] MEDS ORDERED: ACETAMINOPHEN 325 MG TABLET (FP) PO ONE (17:06)
[2020-10-25] MEDS ORDERED: LIDOCAINE HCL 2% (20ML MULTI-DOSE VIAL) ONE (18:21)
[2020-10-25] MEDS ORDERED: LIDOCAINE HCL 2% (50ML VIAL) SQ ONE (18:21)
[2020-10-25] MEDS ORDERED: ACETAMINOPHEN 325 MG TABLET (FP) ONE (18:39)
[2020-10-25] MEDS ORDERED: traMADol HCL 50 MG TABLET ONE (20:46)
[2020-10-25] MEDS ORDERED: traMADol HCL 50 MG TABLET PO ONE (20:46)
== END 2020-10-25 20:53 | disposition home or self-care (01) ==
LOC: JERFT 16:04 → JER 16:04 → JERFT 20:53
DX: S62.102A Fracture of unspecified carpal bone, left wrist, initial encounter for closed fracture (principal)
CPT/HCPCS: 73110-TC-LT-FY; 73130-TC-LT-FY; 99284-25

== ENCOUNTER 2020-11-08 11:26 | Day surgery (SDC) | payer OTHER, MEDICARE ==
[2020-11-01 10:29] VITALS: BMI 27.4
[2020-11-08] MEDS ORDERED: ONDANSETRON 4 MG/2 ML VIAL IVPUSH PRN (11:58)
[2020-11-08] MEDS ORDERED: oxyCODONE HCL 5 MG TABLET PO PRN (11:58)
[2020-11-08] MEDS ORDERED: LACTATED RINGERS SOLUTION 1,000 ML IV SCH (12:00)
[2020-11-08] MEDS ORDERED: ROPIVACAINE HCL 0.5% 30ML VIAL ONE (12:02)
[2020-11-08] MEDS ORDERED: PROPOFOL 20 ML ONE (12:03)
[2020-11-08] MEDS ORDERED: ceFAZolin SODIUM 1 GM VIAL ONE (12:04)
[2020-11-08] MEDS ORDERED: MIDAZOLAM HCL 2 MG/2 ML SINGLE DOSE VIAL ONE (12:16)
[2020-11-08 15:52] VITALS: BP 128/68; PULSE 81; TEMP 98.2
== END 2020-11-08 16:07 | disposition home or self-care (01) ==
LOC: FASU 11:26
PROVIDERS: ATTEND Orthopaedic Surgery Hand Surgery
PROC: 0LN50ZZ Release Right Lower Arm and Wrist Tendon, Open Approach (ICD-10-PCS; 2020-11-08)
PROC: 0PSH04Z Reposition Right Radius with Internal Fixation Device, Open Approach (ICD-10-PCS; principal; 2020-11-08 12:56)
DX: S52.571A Other intraarticular fracture of lower end of right radius, initial encounter for closed fracture (principal); X58.XXXA Exposure to other specified factors, initial encounter; Y93.9 Activity, unspecified; Y92.9 Unspecified place or not applicable
CPT/HCPCS: 25609; C1713; 82962; 93005; 94760

== ENCOUNTER 2021-03-07 10:15 | Inpatient (IN) | payer OTHER, MEDICARE ==
[2021-04-02 12:01] VITALS: BMI 27.4
[2021-04-04] MEDS ORDERED: ETOMIDATE 20 MG/10 ML AMPUL IVPUSH ONE (06:55)
[2021-04-04] MEDS ORDERED: ROCURONIUM BROMIDE 50 MG/5 ML SYRINGE ONE ×2 (06:56→08:50)
[2021-04-04] MEDS ORDERED: PROPOFOL 20 ML ONE ×2 (06:56→08:49)
[2021-04-04] MEDS ORDERED: SUCCINYLCHOLINE CHLORIDE 200 MG/10 ML SYRINGE ONE (06:58)
[2021-04-04] MEDS ORDERED: DEXMEDETOMIDINE HCL 200 MCG/2 ML IVPB ONE (07:00)
[2021-04-04] MEDS ORDERED: ACETAMINOPHEN INJECTION 100 ML IVPB ONE (07:00)
[2021-04-04] MEDS ORDERED: THROMBIN (BOVINE) 5,000 UNIT VIAL TP ONE ×2 (07:19→08:25)
[2021-04-04] MEDS ORDERED: methylPREDNISolone ACET (DEPO) 40 MG/1 ML VIAL ONE (07:20)
[2021-04-04] MEDS ORDERED: BUPIVACAINE HCL/PF 0.5% (5MG/ML) 10 ML VIAL ONE (07:20)
[2021-04-04] MEDS ORDERED: BACITRACIN 15 GM TUBE TOPICAL OINTMENT ONE (07:20)
[2021-04-04] MEDS ORDERED: BUPIVACAINE HCL/PF 0.5% (5MG/ML) 10 ML VIAL IJ ONE (08:05)
[2021-04-04] MEDS ORDERED: BACITRACIN 50,000 UNITS VIAL TP ONE (08:19)
[2021-04-04] MEDS ORDERED: ceFAZolin SODIUM 1 GM VIAL IVPB ONE (08:20)
[2021-04-04] MEDS ORDERED: NEOSTIGMINE METHYLSULFATE 0.5 MG/1 ML - 10 ML MDV ONE (09:42)
[2021-04-04] MEDS ORDERED: GLYCOPYRROLATE 0.2 MG/1 ML VIAL ONE (09:43)
[2021-04-04] MEDS ORDERED: ONDANSETRON 4 MG/2 ML VIAL ONE (09:47)
[2021-04-04] MEDS ORDERED: BISACODYL 10 MG SUPP.RECT RC PRN (10:16)
[2021-04-04] MEDS ORDERED: PROMETHAZINE HCL 25 MG/1 ML VIAL IVPB PRN (10:26)
[2021-04-04] MEDS ORDERED: ONDANSETRON 4 MG/2 ML VIAL IVPUSH PRN ×2 (10:26→16:26)
[2021-04-04] MEDS ORDERED: D5-1/2NS+20 MEQ KCL - 1,000 ML IV SCH (10:30)
[2021-04-04] MEDS ORDERED: PATIENT'S OWN MEDICATION (NON-FORMULARY) (Insulin Lispro [Humalog] 100 UNIT/ML Cartridge) SQ SCH (10:30)
[2021-04-04] MEDS ORDERED: HYDROmorphone *PCA* 10MG/50ML DISP.SYRIN ONE (11:18)
[2021-04-04 11:30] LABS: HEMATOCRIT 32.5 % (32.4-45.2); HEMOGLOBIN 10.5 GM/dL (10.7-15.3); MCH 30.3 pg (25.7-33.7); MCHC 32.4 g/dl (32.0-36.0); MEAN CELL VOLUME 93.5 fl (80-96); MEAN PLT VOLUME 8.5 fl (7.5-11.1); PLATELET COUNT 250 10^3/uL (134-434); RBC 3.48 M/mm3 (3.60-5.2); WHITE BLOOD COUNT 7.1 K/mm3 (4.0-10.0)
[2021-04-04 11:58] LABS: BLOOD UREA NITROGEN 11.6 mg/dL (7-18); CALCIUM 8.4 mg/dL (8.5-10.1)
[2021-04-04 12:02] LABS: CREATININE 0.6 mg/dL (0.55-1.3)
[2021-04-04] MEDS ORDERED: HYDROmorphone *PCA* 10MG/50ML DISP.SYRIN PCA SCH (12:15)
[2021-04-04] MEDS: diazePAM 5 MG TABLET PO SCH ×2 (15:46→17:31)
[2021-04-04] MEDS ORDERED: ceFAZolin SODIUM 1 GM VIAL ONE (17:27)
[2021-04-04] MEDS ORDERED: DEXTROSE 5%-WATER - 50 ML IVPB ONE (17:27)
[2021-04-04] MEDS: LACTATED RINGERS SOLUTION 1,000 ML IV SCH (17:30)
[2021-04-04] MEDS: DOCUSATE SODIUM 100 MG CAPSULE (FP) PO SCH ×2 (17:31→21:53)
[2021-04-04] MEDS: CEFAZOLIN 1 GM in DEXTROSE 5%-WATER - 50 ML IVPB SCH (17:32)
[2021-04-04] MEDS: MELATONIN 5 MG TABLETS PO SCH (21:53)
[2021-04-04] MEDS: SUCRALFATE 1 GM/10 ML UNIT DOSE CUPS PO SCH (21:53)
[2021-04-04] MEDS: ROSUVASTATIN CA 5 MG TABLET (FP) PO SCH (21:53)
[2021-04-04] MEDS: D5-1/2NS+20 MEQ KCL - 20 MEQ/1,000 ML INFUS.BAG IV SCH (21:54)
[2021-04-04] MEDS: INSULIN SLIDING SCALE (NOVOLOG) 1 VIAL SQ SCH (21:58)
[2021-04-04] MEDS: ACETAMINOPHEN 325 MG TABLET (FP) PO PRN (23:15)
[2021-04-05] MEDS ORDERED: ceFAZolin SODIUM 1 GM VIAL ONE ×4 (01:35→21:11)
[2021-04-05] MEDS ORDERED: DEXTROSE 5%-WATER - 50 ML IVPB ONE ×3 (01:36→14:57)
[2021-04-05] MEDS: diazePAM 5 MG TABLET PO SCH ×4 (01:43→21:21)
[2021-04-05] MEDS: CEFAZOLIN 1 GM in DEXTROSE 5%-WATER - 50 ML IVPB SCH (01:44)
[2021-04-05] MEDS: D5-1/2NS+20 MEQ KCL - 20 MEQ/1,000 ML INFUS.BAG IV SCH (04:23)
[2021-04-05] MEDS: DOCUSATE SODIUM 100 MG CAPSULE (FP) PO SCH ×3 (06:16→21:20)
[2021-04-05] MEDS: INSULIN SLIDING SCALE (NOVOLOG) 1 VIAL SQ SCH ×4 (06:20→21:22)
[2021-04-05] MEDS: CEFAZOLIN 1 GM in DEXTROSE 5%-WATER - 1 GM/50 ML IVPB IVPB SCH ×3 (09:28→21:19)
[2021-04-05] MEDS: SUCRALFATE 1 GM/10 ML UNIT DOSE CUPS PO SCH ×3 (09:29→21:20)
[2021-04-05] MEDS: ALLOPURINOL 100 MG TABLET (FP) PO SCH (09:29)
[2021-04-05] MEDS: LOSARTAN POTASSIUM 50 MG TABLET PO SCH (09:29)
[2021-04-05] MEDS: LORATADINE 10 MG TABLET PO SCH (09:29)
[2021-04-05] MEDS: PANTOPRAZOLE 40 MG TABLET PO SCH (09:29)
[2021-04-05] MEDS: MULTIVITAMINS (DAILY MVI) TABLET (FP) PO SCH (09:29)
[2021-04-05] MEDS: LACTATED RINGERS SOLUTION 1,000 ML IV SCH (15:16)
[2021-04-05] MEDS: SUMAtriptan SUCCINATE 50 MG TABLET PO PRN (16:56)
[2021-04-05] MEDS ORDERED: PT OWN MED DRAWER 7, Y5N ONE (17:05)
[2021-04-05] MEDS: ROSUVASTATIN CA 5 MG TABLET (FP) PO SCH (21:21)
[2021-04-05] MEDS: MELATONIN 5 MG TABLETS PO SCH (21:21)
[2021-04-06] MEDS: SUMAtriptan SUCCINATE 50 MG TABLET PO PRN ×2 (00:44→22:44)
[2021-04-06] MEDS ORDERED: DEXTROSE 5%-WATER - 50 ML IVPB ONE ×4 (02:13→22:18)
[2021-04-06] MEDS ORDERED: ceFAZolin SODIUM 1 GM VIAL ONE ×4 (02:13→22:18)
[2021-04-06] MEDS: CEFAZOLIN 1 GM in DEXTROSE 5%-WATER - 1 GM/50 ML IVPB IVPB SCH ×4 (02:35→22:23)
[2021-04-06] MEDS: DOCUSATE SODIUM 100 MG CAPSULE (FP) PO SCH ×3 (06:27→22:23)
[2021-04-06] MEDS: diazePAM 5 MG TABLET PO SCH ×3 (06:27→22:26)
[2021-04-06] MEDS: INSULIN SLIDING SCALE (NOVOLOG) 1 VIAL SQ SCH ×4 (06:27→22:24)
[2021-04-06] MEDS ORDERED: INSULIN (LEVEMIR) 100 UNITS/ML UNITS SQ SCH (07:00)
[2021-04-06] MEDS: LORATADINE 10 MG TABLET PO SCH (10:55)
[2021-04-06] MEDS: ALLOPURINOL 100 MG TABLET (FP) PO SCH (10:55)
[2021-04-06] MEDS: SUCRALFATE 1 GM/10 ML UNIT DOSE CUPS PO SCH ×2 (10:55→22:23)
[2021-04-06] MEDS: LACTATED RINGERS SOLUTION 1,000 ML IV SCH ×2 (10:55→22:25)
[2021-04-06] MEDS: MULTIVITAMINS (DAILY MVI) TABLET (FP) PO SCH (10:55)
[2021-04-06] MEDS: PANTOPRAZOLE 40 MG TABLET PO SCH (10:55)
[2021-04-06] MEDS: LOSARTAN POTASSIUM 50 MG TABLET PO SCH (10:55)
[2021-04-06 11:26] LABS: HEMATOCRIT 31.6 % (32.4-45.2); HEMOGLOBIN 10.5 GM/dL (10.7-15.3); MCH 30.5 pg (25.7-33.7); MCHC 33.2 g/dl (32.0-36.0); MEAN CELL VOLUME 91.9 fl (80-96); MEAN PLT VOLUME 8.2 fl (7.5-11.1); PLATELET COUNT 244 10^3/uL (134-434); RBC 3.44 M/mm3 (3.60-5.2); WHITE BLOOD COUNT 17.5 K/mm3 (4.0-10.0)
[2021-04-06 11:43] LABS: CALCIUM 8.6 mg/dL (8.5-10.1)
[2021-04-06 11:44] LABS: ALBUMIN 2.8 g/dl (3.4-5.0); BLOOD UREA NITROGEN 14.6 mg/dL (7-18)
[2021-04-06 11:47] LABS: CREATININE 0.7 mg/dL (0.55-1.3)
[2021-04-06 11:48] LABS: BILIRUBIN,TOTAL 0.7 mg/dL (0.2-1)
[2021-04-06] MEDS: INSULIN (LEVEMIR) 100 UNITS/ML UNITS SQ SCH (22:23)
[2021-04-06] MEDS: ROSUVASTATIN CA 5 MG TABLET (FP) PO SCH (22:23)
[2021-04-06] MEDS: MELATONIN 5 MG TABLETS PO SCH (22:26)
[2021-04-06] MEDS: ACETAMINOPHEN 325 MG TABLET (FP) PO PRN (22:28)
[2021-04-06] MEDS ORDERED: PT OWN MED DRAWER 7, Y5N ONE (22:43)
[2021-04-07] MEDS ORDERED: DEXTROSE 5%-WATER - 50 ML IVPB ONE ×3 (02:05→16:05)
[2021-04-07] MEDS ORDERED: ceFAZolin SODIUM 1 GM VIAL ONE ×4 (02:05→21:06)
[2021-04-07] MEDS: CEFAZOLIN 1 GM in DEXTROSE 5%-WATER - 1 GM/50 ML IVPB IVPB SCH ×4 (02:07→21:10)
[2021-04-07] MEDS: diazePAM 5 MG TABLET PO SCH ×3 (06:31→22:05)
[2021-04-07] MEDS: INSULIN SLIDING SCALE (NOVOLOG) 1 VIAL SQ SCH ×4 (06:31→22:05)
[2021-04-07] MEDS: DOCUSATE SODIUM 100 MG CAPSULE (FP) PO SCH ×3 (06:31→21:09)
[2021-04-07] MEDS: INSULIN (LEVEMIR) 100 UNITS/ML UNITS SQ SCH ×2 (07:00→21:13)
[2021-04-07] MEDS: PANTOPRAZOLE 40 MG TABLET PO SCH (09:46)
[2021-04-07] MEDS: LOSARTAN POTASSIUM 50 MG TABLET PO SCH (09:46)
[2021-04-07] MEDS: SUCRALFATE 1 GM/10 ML UNIT DOSE CUPS PO SCH ×2 (09:46→21:09)
[2021-04-07] MEDS: ALLOPURINOL 100 MG TABLET (FP) PO SCH (09:46)
[2021-04-07] MEDS: MULTIVITAMINS (DAILY MVI) TABLET (FP) PO SCH (09:46)
[2021-04-07] MEDS: LORATADINE 10 MG TABLET PO SCH (09:47)
[2021-04-07] MEDS: LACTATED RINGERS SOLUTION 1,000 ML IV SCH ×2 (09:47→21:10)
[2021-04-07] MEDS ORDERED: PT OWN MED DRAWER 7, Y5N ONE (11:37)
[2021-04-07] MEDS: SUMAtriptan SUCCINATE 50 MG TABLET PO PRN (11:38)
[2021-04-07] MEDS: oxyCODONE HCL 5 MG TABLET PO PRN ×2 (13:39→21:09)
[2021-04-07] MEDS: ROSUVASTATIN CA 5 MG TABLET (FP) PO SCH (21:09)
[2021-04-07] MEDS: MELATONIN 5 MG TABLETS PO SCH (21:09)
[2021-04-08] MEDS ORDERED: ceFAZolin SODIUM 1 GM VIAL ONE ×4 (02:10→20:02)
[2021-04-08] MEDS ORDERED: DEXTROSE 5%-WATER - 50 ML IVPB ONE ×4 (02:10→20:03)
[2021-04-08] MEDS: CEFAZOLIN 1 GM in DEXTROSE 5%-WATER - 1 GM/50 ML IVPB IVPB SCH ×4 (02:12→20:06)
[2021-04-08] MEDS ORDERED: PT OWN MED DRAWER 7, Y5N ONE (02:31)
[2021-04-08] MEDS: SUMAtriptan SUCCINATE 50 MG TABLET PO PRN (02:33)
[2021-04-08] MEDS: diazePAM 5 MG TABLET PO SCH ×3 (05:58→21:54)
[2021-04-08] MEDS: DOCUSATE SODIUM 100 MG CAPSULE (FP) PO SCH ×3 (05:58→21:56)
[2021-04-08] MEDS: INSULIN (LEVEMIR) 100 UNITS/ML UNITS SQ SCH ×2 (06:00→21:54)
[2021-04-08] MEDS: INSULIN SLIDING SCALE (NOVOLOG) 1 VIAL SQ SCH ×4 (06:01→22:02)
[2021-04-08] MEDS: LACTATED RINGERS SOLUTION 1,000 ML IV SCH ×4 (06:08→22:07)
[2021-04-08] MEDS ORDERED: MAGNESIUM CITRATE 300 ML BOTTLE PO ONE (08:20)
[2021-04-08] MEDS: oxyCODONE HCL 5 MG TABLET PO PRN ×3 (08:38→20:05)
[2021-04-08 08:47] LABS: EOS % 1.7 % (0-4.5); HEMATOCRIT 31.3 % (32.4-45.2); HEMOGLOBIN 10.6 GM/dL (10.7-15.3); LYMPH % 13.2 % (8-40); MCH 30.9 pg (25.7-33.7); MEAN PLT VOLUME 8.2 fl (7.5-11.1); MONO % 9.8 % (3.8-10.2); NEUT % 74.3 % (42.8-82.8); PLATELET COUNT 273 10^3/uL (134-434); RBC 3.44 M/mm3 (3.60-5.2); RDW 14.6 % (11.6-15.6); WHITE BLOOD COUNT 9.6 K/mm3 (4.0-10.0)
[2021-04-08] MEDS: PANTOPRAZOLE 40 MG TABLET PO SCH (09:27)
[2021-04-08] MEDS: MULTIVITAMINS (DAILY MVI) TABLET (FP) PO SCH (09:27)
[2021-04-08] MEDS: LOSARTAN POTASSIUM 50 MG TABLET PO SCH (09:27)
[2021-04-08] MEDS: SUCRALFATE 1 GM/10 ML UNIT DOSE CUPS PO SCH ×2 (09:27→21:53)
[2021-04-08] MEDS: ALLOPURINOL 100 MG TABLET (FP) PO SCH (09:27)
[2021-04-08] MEDS: LORATADINE 10 MG TABLET PO SCH (09:28)
[2021-04-08] MEDS: ROSUVASTATIN CA 5 MG TABLET (FP) PO SCH (21:54)
[2021-04-08] MEDS: MELATONIN 5 MG TABLETS PO SCH (21:54)
[2021-04-09] MEDS ORDERED: DEXTROSE 5%-WATER - 50 ML IVPB ONE (01:58)
[2021-04-09] MEDS ORDERED: ceFAZolin SODIUM 1 GM VIAL ONE (01:58)
[2021-04-09] MEDS: CEFAZOLIN 1 GM in DEXTROSE 5%-WATER - 1 GM/50 ML IVPB IVPB SCH (02:00)
[2021-04-09] MEDS: oxyCODONE HCL 5 MG TABLET PO PRN (04:57)
[2021-04-09] MEDS: ACETAMINOPHEN 325 MG TABLET (FP) PO PRN ×2 (05:45→17:06)
[2021-04-09] MEDS: DOCUSATE SODIUM 100 MG CAPSULE (FP) PO SCH ×2 (05:45→14:04)
[2021-04-09] MEDS: diazePAM 5 MG TABLET PO SCH ×2 (05:49→13:23)
[2021-04-09] MEDS: INSULIN SLIDING SCALE (NOVOLOG) 1 VIAL SQ SCH ×3 (06:12→17:19)
[2021-04-09] MEDS: INSULIN (LEVEMIR) 100 UNITS/ML UNITS SQ SCH (06:12)
[2021-04-09] MEDS ORDERED: PT OWN MED DRAWER 7, Y5N ONE (07:23)
[2021-04-09] MEDS: SUCRALFATE 1 GM/10 ML UNIT DOSE CUPS PO SCH (10:13)
[2021-04-09] MEDS: PANTOPRAZOLE 40 MG TABLET PO SCH (10:13)
[2021-04-09] MEDS: ALLOPURINOL 100 MG TABLET (FP) PO SCH (10:13)
[2021-04-09] MEDS: MULTIVITAMINS (DAILY MVI) TABLET (FP) PO SCH (10:13)
[2021-04-09] MEDS: LOSARTAN POTASSIUM 50 MG TABLET PO SCH (10:13)
[2021-04-09] MEDS: LORATADINE 10 MG TABLET PO SCH (10:14)
[2021-04-09] MEDS: LACTATED RINGERS SOLUTION 1,000 ML IV SCH (11:53)
[2021-04-09 14:27] VITALS: BP 132/65; PULSE 92; TEMP 98.6
== END 2021-04-09 18:53 | DRG 460 ==
LOC: J2C 04-04 04:15 → J6S 04-04 13:12
PROVIDERS: ADMIT Neurological Surgery; ATTEND Neurological Surgery
PROC: 0SG3071 Fusion of Lumbosacral Joint with Autologous Tissue Substitute, Posterior Approach, Posterior Column, Open Approach (ICD-10-PCS; 2021-04-04)
PROC: 0QB00ZZ Excision of Lumbar Vertebra, Open Approach (ICD-10-PCS; 2021-04-04)
PROC: 01NB0ZZ Release Lumbar Nerve, Open Approach (ICD-10-PCS; 2021-04-04)
PROC: 0SG0071 Fusion of Lumbar Vertebral Joint with Autologous Tissue Substitute, Posterior Approach, Posterior Column, Open Approach (ICD-10-PCS; principal; 2021-04-04 07:30)
DX: M48.062 Spinal stenosis, lumbar region with neurogenic claudication (principal); M54.16 Radiculopathy, lumbar region; I10 Essential (primary) hypertension; E10.65 Type 1 diabetes mellitus with hyperglycemia; Z79.4 Long term (current) use of insulin; Z96.41 Presence of insulin pump (external) (internal); K21.9 Gastro-esophageal reflux disease without esophagitis
CPT/HCPCS: 36415; 72100-TC-FY; 80048; 80053; 82962; 85025; 85027; 94010; 94760; 97116-GP; 97162-GP; J0131

== ENCOUNTER 2021-10-09 12:01 | Emergency (ER) | payer OTHER, MEDICARE ==
[2021-10-09 12:18] VITALS: BP 128/59; PULSE 99; TEMP 98.2; BMI 26.6
[2021-10-09] MEDS ORDERED: KETOROLAC TROMETHAMINE 30 MG/1 ML VIAL IM ONE (13:05)
[2021-10-09] MEDS ORDERED: ACETAMINOPHEN 500 MG TABLET (FP) PO ONE (13:05)
[2021-10-09] MEDS ORDERED: KETOROLAC TROMETHAMINE 30 MG/1 ML VIAL ONE (13:09)
[2021-10-09] MEDS ORDERED: ACETAMINOPHEN 500 MG TABLET (FP) ONE (13:10)
== END 2021-10-09 14:53 | disposition home or self-care (01) ==
LOC: JERFT 12:01
PROC: 3E023GC Introduction of Other Therapeutic Substance into Muscle, Percutaneous Approach (ICD-10-PCS; principal; 2021-10-09)
DX: M54.50 Low back pain, unspecified (principal)
CPT/HCPCS: 72100-TC-FY; 99284-25

== ENCOUNTER 2023-07-09 12:51 | Inpatient (IN) | payer OTHER, MEDICARE ==
[2023-07-09] MEDS ORDERED: morphine SULFATE 4 MG/ML VIAL IVPUSH ONE ×2 (13:33→16:32)
[2023-07-09] MEDS ORDERED: morphine SULFATE 4 MG/ML VIAL ONE ×2 (14:41→16:36)
[2023-07-09 14:50] LABS: BASO % 0.2 % (0-2.0); EOS % 0.1 % (0-4.5); HEMOGLOBIN 12.7 GM/dL (10.7-15.3); LYMPH % 7.4 % (8-40); MCH 30.1 pg (25.7-33.7); MCHC 31.6 g/dl (32.0-36.0); MEAN CELL VOLUME 95.4 fl (80-96); MEAN PLT VOLUME 8.2 fl (7.5-11.1); MONO % 6.6 % (3.8-10.2); NEUT % 85.7 % (42.8-82.8); PLATELET COUNT 305 10^3/uL (134-434); RDW 13.5 % (11.6-15.6); WHITE BLOOD COUNT 15.1 K/mm3 (4.0-10.0)
[2023-07-09 14:57] LABS: INR 1.07 (0.83-1.09); PROTHROMBIN TIME (PATIENT) 12.4 SEC (9.7-13.0)
[2023-07-09 14:59] LABS: ACTIVATED PTT 25.9 SECONDS (25.2-36.5)
[2023-07-09 15:21] LABS: POTASSIUM 4.1 mmol/L (3.5-5.1)
[2023-07-09 15:24] LABS: CALCIUM 9.1 mg/dL (8.5-10.1)
[2023-07-09 15:25] LABS: ALBUMIN 3.6 g/dl (3.4-5.0); BLOOD UREA NITROGEN 13.8 mg/dL (7-18)
[2023-07-09 15:28] LABS: CREATININE 0.6 mg/dL (0.55-1.3)
[2023-07-09 15:29] LABS: BILIRUBIN,TOTAL 0.9 mg/dL (0.2-1)
[2023-07-09] MEDS ORDERED: traMADol HCL 50 MG TABLET PO PRN (17:55)
[2023-07-09] MEDS ORDERED: ACETAMINOPHEN 500 MG TABLET (FP) PO PRN (17:55)
[2023-07-09] MEDS ORDERED: CYCLOBENZAPRINE HCL 10 MG TABLET (FP) PO SCH (22:00)
[2023-07-10] MEDS ORDERED: INSULIN (NOVOLOG) ASPART 100 UNITS/ML 10ML VIAL SQ ONE (03:33)
[2023-07-10] MEDS ORDERED: ALLOPURINOL 100 MG TABLET (FP) PO SCH (10:00)
[2023-07-10] MEDS ORDERED: LOSARTAN POTASSIUM 50 MG TABLET PO SCH (10:00)
[2023-07-10] MEDS ORDERED: PATIENT'S OWN MEDICATION (NON-FORMULARY) (Olmesartan Medoxomil 40 MG Tablet) PO SCH (10:00)
[2023-07-10] MEDS ORDERED: FLU VACCINE (FLULAVAL) PF 60 MCG/0.5 ML SYRINGE 2023-2024 IM ONE (11:56)
[2023-07-10] MEDS ORDERED: PNEUMOC 20-VAL CONJ-DIP CRM/PF 0.5 ML SYRINGE IM ONE (11:56)
[2023-07-10] MEDS ORDERED: PNEUMOCOCCAL 23 VACCINE 0.5 ML VIAL IM ONE (13:00)
[2023-07-10] MEDS ORDERED: LACTATED RINGERS SOLUTION 1,000 ML IV SCH ×2 (14:45→17:23)
[2023-07-10] MEDS ORDERED: FENTANYL CITRATE/PF 50 MCG/ML VIAL ONE ×5 (15:52→17:57)
[2023-07-10] MEDS ORDERED: PROPOFOL 20 ML ONE (15:53)
[2023-07-10] MEDS ORDERED: ceFAZolin SODIUM 1 GM VIAL IVPB ONE (16:12)
[2023-07-10] MEDS ORDERED: ROSUVASTATIN CA 5 MG TABLET PO SCH (16:30)
[2023-07-10] MEDS ORDERED: HYDROmorphone HCl 2 MG/ML VIAL ONE (16:38)
[2023-07-10] MEDS ORDERED: ONDANSETRON 4 MG/2 ML VIAL IVPUSH PRN (17:16)
[2023-07-10] MEDS ORDERED: ACETAMINOPHEN 500 MG TABLET (FP) PO PRN (17:23)
[2023-07-10] MEDS ORDERED: traMADol HCL 50 MG TABLET PO PRN (17:23)
[2023-07-10] MEDS ORDERED: DOCUSATE SODIUM 100 MG CAPSULE (FP) PO SCH ×2 (17:30)
[2023-07-10] MEDS: LACTATED RINGERS SOLUTION 1,000 ML IV SCH ×2 (18:10→18:53)
[2023-07-10] MEDS ORDERED: CYCLOBENZAPRINE HCL 10 MG TABLET (FP) PO SCH (22:00)
[2023-07-10] MEDS: CEFAZOLIN SODIUM 2 GM in DEXTROSE 5%-WATER 100 ML IVPB SCH (22:23)
[2023-07-10] MEDS ORDERED: CEFAZOLIN SODIUM 2 GM in DEXTROSE 5%-WATER 100 ML IVPB SCH (23:00)
[2023-07-11] MEDS: CEFAZOLIN SODIUM 2 GM in DEXTROSE 5%-WATER 100 ML IVPB SCH (06:02)
[2023-07-11] MEDS ORDERED: INSULIN (NOVOLOG) ASPART 100 UNITS/ML 10ML VIAL SQ ONE ×3 (06:42→08:54)
[2023-07-11] MEDS ORDERED: INSULIN (LEVEMIR) 100 UNITS/ML UNITS SQ ONE ×2 (07:18→08:54)
[2023-07-11] MEDS ORDERED: LACTATED RINGERS SOLUTION 1000 ML INFUS.BAG IV ONE ×4 (07:22→16:42)
[2023-07-11] MEDS ORDERED: METOPROLOL TARTRATE 5 MG/5 ML VIAL IVPUSH ONE (07:39)
[2023-07-11 07:41] LABS: ALLENS TEST POSITIVE; ARTERIAL BLD GAS O2 SATURATION 91.8 % (95-98); ARTERIAL BLOOD GAS BASE EXCESS -23.9 mmol/L (-2-2); ARTERIAL BLOOD GAS PO2 88.9 mmHg (80-100)
[2023-07-11 07:43] LABS: ARTERIAL BLOOD GAS pH 7.009 (7.350-7.450)
[2023-07-11 07:45] LABS: ARTERIAL BLD GAS O2 SATURATION 78.2 % (95-98); ARTERIAL BLOOD GAS BASE EXCESS -24.1 mmol/L (-2-2); ARTERIAL BLOOD GAS PO2 62.5 mmHg (80-100)
[2023-07-11 07:51] LABS: ARTERIAL BLOOD GAS pH 6.985 (7.350-7.450)
[2023-07-11 08:10] LABS: CHLORIDE 97 mmol/L (98-107); POTASSIUM 5.7 mmol/L (3.5-5.1); SODIUM 134 mmol/L (136-145)
[2023-07-11 08:13] LABS: CALCIUM 8.4 mg/dL (8.5-10.1)
[2023-07-11 08:14] LABS: ALBUMIN 3.3 g/dl (3.4-5.0); ANION GAP 30 mmol/L (4-13); CO2 7 mmol/L (21-32)
[2023-07-11] MEDS ORDERED: INSULIN DRIP - PLEASE ORDER UNDER SETS NR ONE (08:14)
[2023-07-11 08:16] LABS: SGPT/ALT 26 U/L (13-61)
[2023-07-11 08:17] LABS: BILIRUBIN,TOTAL 0.6 mg/dL (0.2-1); CREATININE 2.9 mg/dL (0.55-1.3); SGOT/AST 37 U/L (15-37)
[2023-07-11] MEDS ORDERED: VANCOMYCIN/WATER FOR INJ (PEG) 1,000 MG/200 ML BAG IVPB ONE (08:17)
[2023-07-11 08:18] LABS: ALK PHOS 67 U/L (45-117); TOT PROT 5.8 g/dl (6.4-8.2)
[2023-07-11] MEDS ORDERED: NOREPINEPHRINE BITARTRATE 4 MG/4 ML ML IV ONE (08:18)
[2023-07-11] MEDS ORDERED: PIPERACILLIN/TAZOB 3.375 GM 3.375 GM in DEXTROSE 5%-WATER - 50 ML IVPB ONE (08:18)
[2023-07-11] MEDS ORDERED: SODIUM CHLORIDE 0.9% 500 ML INFUS.BAG IV ONE ×2 (08:19→08:47)
[2023-07-11 08:31] LABS: BLOOD UREA NITROGEN 54.3 mg/dL (7-18); GLUCOSE,RANDOM 911 mg/dL (74-106)
[2023-07-11] MEDS: NOREPINEPHRINE BITARTRATE 4,000 MCG in DEXTROSE 5%-WATER - 496 ML IV SCH (08:45)
[2023-07-11] MEDS ORDERED: ACETAMINOPHEN 500 MG TABLET (FP) PO PRN (08:54)
[2023-07-11] MEDS ORDERED: LACTATED RINGERS SOLUTION 1,000 ML IV SCH ×2 (08:54→11:39)
[2023-07-11] MEDS: INSULIN REGULAR 100 UNITS in SODIUM CHLORIDE 99 ML IVPB SCH ×2 (09:16→17:15)
[2023-07-11 09:46] LABS: HEMATOCRIT 30.1 % (32.4-45.2); HEMOGLOBIN 8.5 GM/dL (10.7-15.3); MCH 30.7 pg (25.7-33.7); MCHC 28.3 g/dl (32.0-36.0); MEAN CELL VOLUME 108.5 fl (80-96); MEAN PLT VOLUME 8.1 fl (7.5-11.1); PLATELET COUNT 238 10^3/uL (134-434); RBC 2.78 M/mm3 (3.60-5.2); RDW 15.2 % (11.6-15.6)
[2023-07-11 09:57] LABS: WHITE BLOOD COUNT 19.3 K/mm3 (4.0-10.0)
[2023-07-11] MEDS ORDERED: MUPIROCIN 2% TOPICAL OINTMENT FOR DECOLONIZATION NS SCH (10:00)
[2023-07-11] MEDS ORDERED: ENOXAPARIN NA (PORCINE) 40 MG/0.4 ML DISP.SYRIN SQ SCH ×3 (10:00)
[2023-07-11] MEDS ORDERED: LOSARTAN POTASSIUM 50 MG TABLET PO SCH (10:00)
[2023-07-11] MEDS ORDERED: ALLOPURINOL 100 MG TABLET (FP) PO SCH (10:00)
[2023-07-11 10:19] LABS: ANISOCYTOSIS 2+; MACROCYTOSIS 2+
[2023-07-11 11:24] LABS: EPI CELLS 6 /uL (0-25.1); HYALINE CASTS 2 /uL (0-3.1); PH,URINE 5.5 (5.0-8.0); URINE APPEARANCE CLEAR; URINE BACTERIA 7 /uL (0-1359); URINE BILIRUBIN NEGATIVE (NEGATIVE); URINE COLOR YELLOW; URINE GLUCOSE (UA) 3+ (NEGATIVE); URINE KETONE 1+ (NEGATIVE); URINE LEUK ESTERASE NEGATIVE (NEGATIVE); URINE NITRITE NEGATIVE (NEGATIVE); URINE PROTEIN 1+ (NEGATIVE); URINE RBC 26 /uL (0-23.9); URINE UROBILINOGEN 0.2 mg/dL (0.2-1.0); URINE WBC 8 /uL (0-25.8)
[2023-07-11 13:13] LABS: VENOUS BASE EXCESS -16.3 mmol/L (-2-2); VENOUS O2 SATURATION 99.3 % (70-80); VENOUS PCO2 32.6 mmHg (38-52)
[2023-07-11 13:20] LABS: BASO % 0.2 % (0-2.0); HEMATOCRIT 30.6 % (32.4-45.2); HEMOGLOBIN 9.3 GM/dL (10.7-15.3); LYMPH % 10.3 % (8-40); MCH 30.7 pg (25.7-33.7); MCHC 30.3 g/dl (32.0-36.0); MEAN CELL VOLUME 101.2 fl (80-96); MEAN PLT VOLUME 8.6 fl (7.5-11.1); MONO % 10.5 % (3.8-10.2); PLATELET COUNT 243 10^3/uL (134-434); RBC 3.02 M/mm3 (3.60-5.2); RDW 14.5 % (11.6-15.6); WHITE BLOOD COUNT 19.9 K/mm3 (4.0-10.0)
[2023-07-11 13:33] LABS: VENOUS PH 7.156 (7.310-7.410)
[2023-07-11 13:43] LABS: CHLORIDE 108 mmol/L (98-107); POTASSIUM 4.2 mmol/L (3.5-5.1); SODIUM 140 mmol/L (136-145)
[2023-07-11 13:44] LABS: CALCIUM 7.3 mg/dL (8.5-10.1)
[2023-07-11 13:45] LABS: ANION GAP 18 mmol/L (4-13); BLOOD UREA NITROGEN 51.2 mg/dL (7-18); CO2 14 mmol/L (21-32)
[2023-07-11] MEDS ORDERED: LACTATED RINGERS SOLUTION 1,000 ML with POTASSIUM CHLORIDE 20 MEQ IV SCH (13:47)
[2023-07-11 13:50] LABS: CREATININE 2.3 mg/dL (0.55-1.3)
[2023-07-11 13:50] LABS: LACTIC ACID 6.5 mmol/L (0.4-2.0)
[2023-07-11 13:52] LABS: GLUCOSE,RANDOM 593 mg/dL (74-106)
[2023-07-11] MEDS: MUPIROCIN 2% TOPICAL OINTMENT FOR DECOLONIZATION NS SCH ×2 (13:52→22:18)
[2023-07-11] MEDS: ROSUVASTATIN CA 5 MG TABLET PO SCH (15:32)
[2023-07-11] MEDS ORDERED: ROSUVASTATIN CA 5 MG TABLET PO SCH (16:30)
[2023-07-11] MEDS: PIPERACILLIN/TAZOB 2.25 GM 2.25 GM in DEXTROSE 5%-WATER - 50 ML IVPB SCH (17:14)
[2023-07-11 19:00] LABS: POTASSIUM 3.6 mmol/L (3.5-5.1)
[2023-07-11 19:01] LABS: BLOOD UREA NITROGEN 49.1 mg/dL (7-18); CALCIUM 7.7 mg/dL (8.5-10.1)
[2023-07-11 19:04] LABS: CREATININE 1.9 mg/dL (0.55-1.3)
[2023-07-11] MEDS ORDERED: DEXTROSE 5%-0.45% SALINE 1,000 ML IV SCH (19:15)
[2023-07-11] MEDS ORDERED: D5-1/2NS+20 MEQ KCL - 20 MEQ/1,000 ML INFUS.BAG IV SCH (19:45)
[2023-07-11] MEDS ORDERED: REMDESIVIR 200 MG in SODIUM CHLORIDE 250 ML IVPB ONE ×2 (20:05→20:14)
[2023-07-11 21:47] LABS: POTASSIUM 3.4 mmol/L (3.5-5.1)
[2023-07-11 21:48] LABS: CALCIUM 7.6 mg/dL (8.5-10.1)
[2023-07-11 21:49] LABS: BLOOD UREA NITROGEN 46.5 mg/dL (7-18); POTASSIUM 3.4 mmol/L (3.5-5.1)
[2023-07-11 21:51] LABS: ALBUMIN 2.7 g/dl (3.4-5.0); BLOOD UREA NITROGEN 44.2 mg/dL (7-18); CALCIUM 7.7 mg/dL (8.5-10.1)
[2023-07-11 21:52] LABS: CREATININE 1.7 mg/dL (0.55-1.3); MAGNESIUM 1.9 mg/dL (1.8-2.4)
[2023-07-11 21:54] LABS: CREATININE 1.7 mg/dL (0.55-1.3)
[2023-07-11 21:56] LABS: BILIRUBIN,TOTAL 0.3 mg/dL (0.2-1)
[2023-07-11] MEDS ORDERED: CHLORHEXIDINE GLUCONATE 4% CLEANSER FOR DECOLONIZATION TP SCH (22:00)
[2023-07-11 22:04] LABS: LACTIC ACID 3.7 mmol/L (0.4-2.0)
[2023-07-11] MEDS: CHLORHEXIDINE GLUCONATE 4% CLEANSER FOR DECOLONIZATION TP SCH (22:18)
[2023-07-11] MEDS: KCL 10 MEQ IVPB 10 MEQ/100 ML INFUS.BAG IVPB SCH (22:30)
[2023-07-11] MEDS ORDERED: DEXTROSE 10%-WATER - 500 ML IV SCH (22:45)
[2023-07-12] MEDS: KCL 10 MEQ IVPB 10 MEQ/100 ML INFUS.BAG IVPB SCH ×4 (00:53→11:30)
[2023-07-12] MEDS: PIPERACILLIN/TAZOB 2.25 GM 2.25 GM in DEXTROSE 5%-WATER - 50 ML IVPB SCH ×3 (01:37→17:25)
[2023-07-12 06:38] LABS: HEMATOCRIT 29.9 % (32.4-45.2); HEMOGLOBIN 9.6 GM/dL (10.7-15.3); MCH 30.9 pg (25.7-33.7); MCHC 32.1 g/dl (32.0-36.0); MEAN PLT VOLUME 8.5 fl (7.5-11.1); PLATELET COUNT 211 10^3/uL (134-434); RBC 3.11 M/mm3 (3.60-5.2); RDW 13.5 % (11.6-15.6); WHITE BLOOD COUNT 23.9 K/mm3 (4.0-10.0)
[2023-07-12 06:39] LABS: HEMATOCRIT 30.1 % (32.4-45.2); HEMOGLOBIN 9.6 GM/dL (10.7-15.3); MCH 30.8 pg (25.7-33.7); MCHC 31.9 g/dl (32.0-36.0); MEAN CELL VOLUME 96.4 fl (80-96); MEAN PLT VOLUME 8.4 fl (7.5-11.1); PLATELET COUNT 217 10^3/uL (134-434); RBC 3.12 M/mm3 (3.60-5.2); RDW 13.5 % (11.6-15.6); WHITE BLOOD COUNT 23.4 K/mm3 (4.0-10.0)
[2023-07-12 07:00] LABS: POTASSIUM 3.6 mmol/L (3.5-5.1)
[2023-07-12 07:06] LABS: MEAN CELL VOLUME 96.1 fl (80-96)
[2023-07-12 07:08] LABS: ALBUMIN 2.4 g/dl (3.4-5.0); BLOOD UREA NITROGEN 40.4 mg/dL (7-18)
[2023-07-12 07:11] LABS: CALCIUM 7.3 mg/dL (8.5-10.1); CREATININE 1.4 mg/dL (0.55-1.3); MAGNESIUM 1.7 mg/dL (1.8-2.4)
[2023-07-12 07:13] LABS: BILIRUBIN,TOTAL 0.4 mg/dL (0.2-1); TOT PROT 4.8 g/dl (6.4-8.2)
[2023-07-12] MEDS ORDERED: MAGNESIUM 1GM/D5W - 1 GM/100 ML IVPB IVPB ONE (08:44)
[2023-07-12 08:50] LABS: ANISOCYTOSIS 0; HELMET CELLS 0; HOWELL-JOLLY BODIES 0; MACROCYTOSIS 0; OVALOCYTE 0; ROULEAU 0; SICKELED CELLS 0; TARGET CELLS 0; TEAR DROP CELLS 0; TOXIC GRANULATION 0
[2023-07-12] MEDS: INSULIN (LEVEMIR) 100 UNITS/ML UNITS SQ SCH (09:00)
[2023-07-12] MEDS ORDERED: LACTATED RINGERS SOLUTION 1,000 ML/1,000 ML INFUS.BAG IV STA (09:02)
[2023-07-12] MEDS: MUPIROCIN 2% TOPICAL OINTMENT FOR DECOLONIZATION NS SCH ×2 (09:18→21:49)
[2023-07-12] MEDS: INSULIN SLIDING SCALE (NOVOLOG) 1 VIAL SQ SCH ×4 (09:23→21:49)
[2023-07-12] MEDS ORDERED: DEXAMETHASONE SOD PHOSPHATE 10 MG/1 ML VIAL IVPUSH SCH (10:00)
[2023-07-12] MEDS: NOREPINEPHRINE BITARTRATE 4,000 MCG in DEXTROSE 5%-WATER - 496 ML IV SCH (11:13)
[2023-07-12 13:35] LABS: POTASSIUM 3.7 mmol/L (3.5-5.1)
[2023-07-12 13:36] LABS: CALCIUM 7.5 mg/dL (8.5-10.1)
[2023-07-12 13:37] LABS: BLOOD UREA NITROGEN 34.8 mg/dL (7-18)
[2023-07-12] MEDS: ROSUVASTATIN CA 5 MG TABLET PO SCH ×2 (17:25)
[2023-07-12] MEDS ORDERED: REMDESIVIR 100 MG in SODIUM CHLORIDE 250 ML IVPB SCH (21:00)
[2023-07-12] MEDS: CHLORHEXIDINE GLUCONATE 4% CLEANSER FOR DECOLONIZATION TP SCH (21:49)
[2023-07-13] MEDS: PIPERACILLIN/TAZOB 2.25 GM 2.25 GM in DEXTROSE 5%-WATER - 50 ML IVPB SCH ×3 (01:28→17:14)
[2023-07-13 06:14] LABS: HEMATOCRIT 29.6 % (32.4-45.2); HEMOGLOBIN 9.5 GM/dL (10.7-15.3); MCHC 32.3 g/dl (32.0-36.0); MEAN PLT VOLUME 8.5 fl (7.5-11.1); PLATELET COUNT 183 10^3/uL (134-434); RBC 3.08 M/mm3 (3.60-5.2); RDW 13.5 % (11.6-15.6)
[2023-07-13 06:20] LABS: WHITE BLOOD COUNT 13.1 K/mm3 (4.0-10.0)
[2023-07-13] MEDS: INSULIN SLIDING SCALE (NOVOLOG) 1 VIAL SQ SCH ×4 (06:20→21:08)
[2023-07-13] MEDS: INSULIN (LEVEMIR) 100 UNITS/ML UNITS SQ SCH (06:20)
[2023-07-13 06:36] LABS: POTASSIUM 3.7 mmol/L (3.5-5.1)
[2023-07-13 06:38] LABS: CALCIUM 7.5 mg/dL (8.5-10.1)
[2023-07-13 06:39] LABS: MAGNESIUM 1.9 mg/dL (1.8-2.4)
[2023-07-13 06:42] LABS: CREATININE 0.7 mg/dL (0.55-1.3); PHOSPHOROUS 2.3 mg/dL (2.5-4.9)
[2023-07-13] MEDS ORDERED: INSULIN (LEVEMIR) 100 UNITS/ML UNITS SQ ONE (09:53)
[2023-07-13] MEDS ORDERED: INSULIN (LEVEMIR) 100 UNITS/ML UNITS SQ SCH ×2 (09:53→16:36)
[2023-07-13] MEDS ORDERED: POTASSIUM PHOSPHATE 15 MM in SODIUM CHLORIDE 250 ML IVPB ONE ×2 (09:54→11:00)
[2023-07-13] MEDS ORDERED: MAGNESIUM 1GM/D5W - 1 GM/100 ML IVPB IVPB ONE (09:55)
[2023-07-13] MEDS: MUPIROCIN 2% TOPICAL OINTMENT FOR DECOLONIZATION NS SCH ×2 (10:19→21:08)
[2023-07-13] MEDS: ROSUVASTATIN CA 5 MG TABLET PO SCH (17:15)
[2023-07-13] MEDS: NOREPINEPHRINE BITARTRATE 4,000 MCG in DEXTROSE 5%-WATER - 496 ML IV SCH (21:00)
[2023-07-13] MEDS: CHLORHEXIDINE GLUCONATE 4% CLEANSER FOR DECOLONIZATION TP SCH (21:08)
[2023-07-14] MEDS: PIPERACILLIN/TAZOB 2.25 GM 2.25 GM in DEXTROSE 5%-WATER - 50 ML IVPB SCH ×2 (01:00→10:42)
[2023-07-14] MEDS: INSULIN (NOVOLOG) ASPART 100 UNITS/ML 10ML VIAL SQ SCH ×3 (06:36→17:01)
[2023-07-14] MEDS: INSULIN SLIDING SCALE (NOVOLOG) 1 VIAL SQ SCH ×4 (06:36→21:12)
[2023-07-14 07:22] LABS: HEMATOCRIT 29.4 % (32.4-45.2); HEMOGLOBIN 9.7 GM/dL (10.7-15.3); MCH 31.4 pg (25.7-33.7); MCHC 32.9 g/dl (32.0-36.0); MEAN CELL VOLUME 95.3 fl (80-96); MEAN PLT VOLUME 8.5 fl (7.5-11.1); PLATELET COUNT 187 10^3/uL (134-434); RBC 3.08 M/mm3 (3.60-5.2); RDW 13.5 % (11.6-15.6); WHITE BLOOD COUNT 10.9 K/mm3 (4.0-10.0)
[2023-07-14 07:35] LABS: POTASSIUM 3.6 mmol/L (3.5-5.1)
[2023-07-14 07:36] LABS: CALCIUM 7.3 mg/dL (8.5-10.1)
[2023-07-14 07:37] LABS: MAGNESIUM 1.8 mg/dL (1.8-2.4)
[2023-07-14 07:40] LABS: BLOOD UREA NITROGEN 15.1 mg/dL (7-18); PHOSPHOROUS 2.2 mg/dL (2.5-4.9)
[2023-07-14 07:43] LABS: CREATININE 0.5 mg/dL (0.55-1.3)
[2023-07-14] MEDS: MUPIROCIN 2% TOPICAL OINTMENT FOR DECOLONIZATION NS SCH ×2 (10:42→21:13)
[2023-07-14] MEDS: ROSUVASTATIN CA 5 MG TABLET PO SCH (17:01)
[2023-07-14] MEDS: CHLORHEXIDINE GLUCONATE 4% CLEANSER FOR DECOLONIZATION TP SCH (21:12)
[2023-07-15] MEDS: INSULIN (NOVOLOG) ASPART 100 UNITS/ML 10ML VIAL SQ SCH ×3 (06:09→18:27)
[2023-07-15] MEDS: INSULIN (LEVEMIR) 100 UNITS/ML UNITS SQ SCH (06:09)
[2023-07-15] MEDS: INSULIN SLIDING SCALE (NOVOLOG) 1 VIAL SQ SCH ×4 (06:10→21:13)
[2023-07-15] MEDS: MUPIROCIN 2% TOPICAL OINTMENT FOR DECOLONIZATION NS SCH (09:48)
[2023-07-15 14:00] VITALS: BMI 30.3
[2023-07-15] MEDS: ROSUVASTATIN CA 5 MG TABLET PO SCH (16:58)
[2023-07-15] MEDS ORDERED: CHLORHEXIDINE GLUCONATE 4% CLEANSER FOR DECOLONIZATION TP SCH (22:00)
[2023-07-15] MEDS ORDERED: MUPIROCIN 2% TOPICAL OINTMENT FOR DECOLONIZATION NS SCH (22:00)
[2023-07-16] MEDS: INSULIN (LEVEMIR) 100 UNITS/ML UNITS SQ SCH (06:22)
[2023-07-16] MEDS: INSULIN (NOVOLOG) ASPART 100 UNITS/ML 10ML VIAL SQ SCH ×3 (06:22→16:34)
[2023-07-16] MEDS: INSULIN SLIDING SCALE (NOVOLOG) 1 VIAL SQ SCH ×4 (06:22→22:56)
[2023-07-16] MEDS: ACETAMINOPHEN 500 MG TABLET (FP) PO PRN (08:58)
[2023-07-16] MEDS: ROSUVASTATIN CA 5 MG TABLET PO SCH (16:34)
[2023-07-16] MEDS ORDERED: COLCHICINE 0.6 MG TAB PO ONE (23:22)
[2023-07-17] MEDS: ACETAMINOPHEN 500 MG TABLET (FP) PO PRN ×2 (00:28→05:51)
[2023-07-17] MEDS: INSULIN (LEVEMIR) 100 UNITS/ML UNITS SQ SCH (06:03)
[2023-07-17] MEDS: INSULIN (NOVOLOG) ASPART 100 UNITS/ML 10ML VIAL SQ SCH ×3 (06:08→17:15)
[2023-07-17] MEDS ORDERED: LOSARTAN POTASSIUM 25 MG TABLET PO SCH (08:00)
[2023-07-17 08:36] LABS: HEMATOCRIT 29.4 % (32.4-45.2); MCH 31.5 pg (25.7-33.7); MEAN CELL VOLUME 92.8 fl (80-96); MEAN PLT VOLUME 8.2 fl (7.5-11.1); PLATELET COUNT 353 10^3/uL (134-434); RBC 3.17 M/mm3 (3.60-5.2); RDW 13.2 % (11.6-15.6); WHITE BLOOD COUNT 11.8 K/mm3 (4.0-10.0)
[2023-07-17 08:59] VITALS: RESP 17
[2023-07-17 09:07] LABS: BLOOD UREA NITROGEN 13.1 mg/dL (7-18); CREATININE 0.6 mg/dL (0.55-1.3)
[2023-07-17 09:09] LABS: CALCIUM 7.9 mg/dL (8.5-10.1); TOT PROT 5.4 g/dl (6.4-8.2)
[2023-07-17 09:10] LABS: ALBUMIN 2.3 g/dl (3.4-5.0)
[2023-07-17] MEDS: INSULIN SLIDING SCALE (NOVOLOG) 1 VIAL SQ SCH ×3 (09:15→17:15)
[2023-07-17] MEDS ORDERED: ALLOPURINOL 100 MG TABLET (FP) PO SCH (10:00)
[2023-07-17] MEDS ORDERED: POTASSIUM CHLORIDE ORAL LIQUID 20 MEQ/15 ML PO ONE (12:00)
[2023-07-17] MEDS ORDERED: ENOXAPARIN NA (PORCINE) 40 MG/0.4 ML DISP.SYRIN SQ ONE (12:00)
[2023-07-17 14:46] VITALS: BP 123/60; PULSE 92; TEMP 98.5
[2023-07-17] MEDS: ROSUVASTATIN CA 5 MG TABLET PO SCH (16:43)
[2023-07-18] MEDS ORDERED: ENOXAPARIN NA (PORCINE) 40 MG/0.4 ML DISP.SYRIN SQ SCH (10:00)
== END 2023-07-17 18:15 | DRG 480 ==
LOC: JER 12:51 → JERBED 14:17 → J6S 18:28 → JICU 07-11 08:12 → J6S 07-15 17:32
PROVIDERS: ADMIT Internal Medicine; ATTEND Internal Medicine
PROC: 0QS606Z Reposition Right Upper Femur with Intramedullary Internal Fixation Device, Open Approach (ICD-10-PCS; principal; 2023-07-10 16:15)
PROC: XW033E5 Introduction of Remdesivir Anti-infective into Peripheral Vein, Percutaneous Approach, New Technology Group 5 (ICD-10-PCS; 2023-07-11)
DX: S72.144A Nondisplaced intertrochanteric fracture of right femur, initial encounter for closed fracture (principal); A41.89 Other specified sepsis; E11.00 Type 2 diabetes mellitus with hyperosmolarity without nonketotic hyperglycemic-hyperosmolar coma (NKHHC); R57.1 Hypovolemic shock; R65.21 Severe sepsis with septic shock; U07.1 COVID-19; G93.41 Metabolic encephalopathy; N17.9 Acute kidney failure, unspecified; T81.44XA Sepsis following a procedure, initial encounter; R00.0 Tachycardia, unspecified; W18.39XA Other fall on same level, initial encounter; Y99.9 Unspecified external cause status; Y92.098 Other place in other non-institutional residence as the place of occurrence of the external cause; Y83.8 Other surgical procedures as the cause of abnormal reaction of the patient, or of later complication, without mention of misadventure at the time of the procedure; I10 Essential (primary) hypertension; E87.5 Hyperkalemia; M17.0 Bilateral primary osteoarthritis of knee; E78.5 Hyperlipidemia, unspecified; K21.9 Gastro-esophageal reflux disease without esophagitis; I35.0 Nonrheumatic aortic (valve) stenosis; E87.6 Hypokalemia; M81.0 Age-related osteoporosis without current pathological fracture; E06.3 Autoimmune thyroiditis; M10.9 Gout, unspecified; K29.70 Gastritis, unspecified, without bleeding; M48.00 Spinal stenosis, site unspecified; M54.59 Other low back pain
CPT/HCPCS: 36415; 36600; 71045-TC-FY; 73502-TC-RT-FY; 73552-TC-RT-FY; 73564-TC-RT-FY; 76000-TC-FY; 80048; 80053; 81003; 82010; 82803; 82962; 83036; 83605; 83735; 83930; 83935; 84100; 84439; 84443; 85025; 85027; 85610; 85730; 86850; 86900; 86901; 87040; 87086; 87635; 93005; 93010; 93306-TC; 94760; 97116-GP; 97162-GP; 99285-25; C1713; J0248

== ENCOUNTER 2023-10-07 12:22 | Inpatient (IN) | payer OTHER, MEDICARE ==
[2023-10-07] MEDS ORDERED: morphine CARPU-JECT 4 MG/1 ML DISP.SYRIN IVPUSH ONE ×2 (12:58→16:13)
[2023-10-07] MEDS ORDERED: morphine SULFATE 4 MG/ML VIAL ONE ×2 (13:41→16:15)
[2023-10-07 13:58] LABS: BASO % 0.3 % (0-2.0); EOS % 0.1 % (0-4.5); HEMATOCRIT 35.9 % (32.4-45.2); HEMOGLOBIN 11.7 GM/dL (10.7-15.3); MCH 29.9 pg (25.7-33.7); MCHC 32.5 g/dl (32.0-36.0); MEAN CELL VOLUME 91.8 fl (80-96); MEAN PLT VOLUME 7.5 fl (7.5-11.1); MONO % 7.1 % (3.8-10.2); NEUT % 84.5 % (42.8-82.8); PLATELET COUNT 398 10^3/uL (134-434); RBC 3.91 M/mm3 (3.60-5.2); RDW 14.5 % (11.6-15.6)
[2023-10-07 14:21] LABS: POTASSIUM 3.4 mmol/L (3.5-5.1)
[2023-10-07 14:23] LABS: ALBUMIN 3.2 g/dl (3.4-5.0); CALCIUM 8.6 mg/dL (8.5-10.1)
[2023-10-07 14:24] LABS: BLOOD UREA NITROGEN 12.5 mg/dL (7-18)
[2023-10-07 14:27] LABS: CREATININE 0.5 mg/dL (0.55-1.3)
[2023-10-07 14:28] LABS: BILIRUBIN,TOTAL 0.5 mg/dL (0.2-1); TOT PROT 6.8 g/dl (6.4-8.2)
[2023-10-07 14:38] LABS: INR 1.05 (0.83-1.09); PROTHROMBIN TIME (PATIENT) 12.2 SEC (9.7-13.0)
[2023-10-07 16:04] LABS: EPI CELLS 9 /uL (0-25.1); HYALINE CASTS 0 /uL (0-3.1); URINE APPEARANCE CLEAR; URINE BACTERIA 53 /uL (0-1359); URINE BILIRUBIN NEGATIVE (NEGATIVE); URINE COLOR YELLOW; URINE GLUCOSE (UA) NEGATIVE (NEGATIVE); URINE KETONE 2+ (NEGATIVE); URINE LEUK ESTERASE 1+ (NEGATIVE); URINE NITRITE NEGATIVE (NEGATIVE); URINE PROTEIN 1+ (NEGATIVE); URINE RBC 31 /uL (0-23.9); URINE UROBILINOGEN 0.2 mg/dL (0.2-1.0); URINE WBC 73 /uL (0-25.8)
[2023-10-07] MEDS ORDERED: FENTANYL CITRATE/PF 50 MCG/ML VIAL ONE (16:45)
[2023-10-07] MEDS ORDERED: ONDANSETRON 4 MG/2 ML VIAL IVPUSH ONE (18:51)
[2023-10-07] MEDS ORDERED: ONDANSETRON 4 MG/2 ML VIAL ONE (19:16)
[2023-10-07] MEDS ORDERED: DOCUSATE SODIUM 100 MG CAPSULE (FP) PO PRN (19:55)
[2023-10-07] MEDS ORDERED: SODIUM CHLORIDE 1,000 ML IV SCH (20:00)
[2023-10-07] MEDS ORDERED: ACETAMINOPHEN 1000 MG/100 ML BAG IVPB PRN (20:02)
[2023-10-07 21:48] LABS: POTASSIUM 3.5 mmol/L (3.5-5.1)
[2023-10-07 21:49] LABS: CALCIUM 8.7 mg/dL (8.5-10.1)
[2023-10-07] MEDS: INSULIN ASPART SLIDING SCALE (NOVOLOG) 1 VIAL SQ SCH (21:49)
[2023-10-07 21:50] LABS: BLOOD UREA NITROGEN 11.9 mg/dL (7-18); MAGNESIUM 1.8 mg/dL (1.8-2.4)
[2023-10-07 21:53] LABS: CREATININE 0.5 mg/dL (0.55-1.3); PHOSPHOROUS 3.2 mg/dL (2.5-4.9)
[2023-10-08] MEDS: INSULIN ASPART SLIDING SCALE (NOVOLOG) 1 VIAL SQ SCH ×4 (06:45→23:13)
[2023-10-08] MEDS ORDERED: SUCRALFATE 1 GM/10 ML UNIT DOSE CUPS PO SCH (07:00)
[2023-10-08 09:29] LABS: BASO % 0.3 % (0-2.0); EOS % 0.1 % (0-4.5); HEMATOCRIT 31.6 % (32.4-45.2); HEMOGLOBIN 10.3 GM/dL (10.7-15.3); LYMPH % 10.2 % (8-40); MCH 30.3 pg (25.7-33.7); MCHC 32.6 g/dl (32.0-36.0); MEAN PLT VOLUME 7.8 fl (7.5-11.1); MONO % 8.9 % (3.8-10.2); NEUT % 80.5 % (42.8-82.8); PLATELET COUNT 323 10^3/uL (134-434); RDW 14.7 % (11.6-15.6); WHITE BLOOD COUNT 10.5 K/mm3 (4.0-10.0)
[2023-10-08 09:43] LABS: POTASSIUM 3.2 mmol/L (3.5-5.1)
[2023-10-08 09:48] LABS: BLOOD UREA NITROGEN 10.9 mg/dL (7-18); CALCIUM 8.2 mg/dL (8.5-10.1)
[2023-10-08 09:52] LABS: CREATININE 0.6 mg/dL (0.55-1.3)
[2023-10-08] MEDS ORDERED: LOSARTAN POTASSIUM 25 MG TABLET PO SCH (10:00)
[2023-10-08] MEDS ORDERED: MULTIVITAMINS (DAILY MVI) TABLET (FP) PO SCH (10:00)
[2023-10-08] MEDS ORDERED: ALLOPURINOL 100 MG TABLET (FP) PO SCH (10:00)
[2023-10-08] MEDS ORDERED: ePHEDrine SULFATE 50 MG/1 ML AMPULE ONE (12:49)
[2023-10-08] MEDS ORDERED: PROPOFOL 20 ML ONE (12:50)
[2023-10-08] MEDS ORDERED: INSULIN REGULAR HUMAN 100 UNITS/ML *VIAL IVPUSH ONE ×4 (13:13→20:06)
[2023-10-08] MEDS ORDERED: ceFAZolin SODIUM 1 GM VIAL IVPB ONE (13:45)
[2023-10-08] MEDS ORDERED: ONDANSETRON 4 MG/2 ML VIAL ONE (13:48)
[2023-10-08] MEDS ORDERED: ONDANSETRON 4 MG/2 ML VIAL IVPUSH PRN (16:57)
[2023-10-08] MEDS ORDERED: LACTATED RINGERS SOLUTION 1,000 ML IV SCH ×2 (17:00)
[2023-10-08] MEDS ORDERED: DOCUSATE SODIUM 100 MG CAPSULE (FP) PO PRN (17:10)
[2023-10-08] MEDS ORDERED: ACETAMINOPHEN 1000 MG/100 ML BAG IVPB PRN (17:10)
[2023-10-08 17:51] LABS: BASO % 0.1 % (0-2.0); HEMATOCRIT 30.3 % (32.4-45.2); HEMOGLOBIN 9.9 GM/dL (10.7-15.3); LYMPH % 9.6 % (8-40); MCHC 32.6 g/dl (32.0-36.0); MEAN CELL VOLUME 91.8 fl (80-96); MONO % 8.5 % (3.8-10.2); NEUT % 81.8 % (42.8-82.8); PLATELET COUNT 254 10^3/uL (134-434); RDW 15.9 % (11.6-15.6); WHITE BLOOD COUNT 17.9 K/mm3 (4.0-10.0)
[2023-10-08 18:17] LABS: POTASSIUM 4.2 mmol/L (3.5-5.1)
[2023-10-08 18:18] LABS: CALCIUM 8.8 mg/dL (8.5-10.1)
[2023-10-08 18:19] LABS: BLOOD UREA NITROGEN 12.8 mg/dL (7-18)
[2023-10-08 18:22] LABS: CREATININE 0.6 mg/dL (0.55-1.3)
[2023-10-08] MEDS: SODIUM CHLORIDE 1,000 ML IV SCH (18:33)
[2023-10-08] MEDS ORDERED: ACETAMINOPHEN INJECTION 100 ML IVPB ONE (19:33)
[2023-10-08] MEDS ORDERED: INSULIN (NOVOLOG) ASPART 100 UNITS/ML 10ML VIAL ONE (21:31)
[2023-10-08] MEDS ORDERED: ATORVASTATIN CA 10 MG TABLET (FP) PO SCH ×2 (22:00)
[2023-10-08] MEDS ORDERED: INSULIN ASPART SLIDING SCALE (NOVOLOG) 1 VIAL SQ SCH (22:00)
[2023-10-08] MEDS ORDERED: MELATONIN 5 MG TABLETS PO SCH ×2 (22:00)
[2023-10-08 22:04] LABS: BASO % 0.1 % (0-2.0); HEMATOCRIT 36.3 % (32.4-45.2); HEMOGLOBIN 12.1 GM/dL (10.7-15.3); LYMPH % 4.9 % (8-40); MCH 29.7 pg (25.7-33.7); MCHC 33.4 g/dl (32.0-36.0); MEAN CELL VOLUME 88.9 fl (80-96); MEAN PLT VOLUME 7.7 fl (7.5-11.1); MONO % 8.6 % (3.8-10.2); NEUT % 86.4 % (42.8-82.8); PLATELET COUNT 200 10^3/uL (134-434); RBC 4.08 M/mm3 (3.60-5.2); RDW 16.2 % (11.6-15.6); WHITE BLOOD COUNT 14.3 K/mm3 (4.0-10.0)
[2023-10-08 22:15] LABS: INR 1.12 (0.83-1.09)
[2023-10-08 22:18] LABS: ACTIVATED PTT 21.1 SECONDS (25.2-36.5)
[2023-10-08 22:26] LABS: POTASSIUM 3.9 mmol/L (3.5-5.1)
[2023-10-08 22:28] LABS: BLOOD UREA NITROGEN 16.6 mg/dL (7-18); CALCIUM 8.2 mg/dL (8.5-10.1); MAGNESIUM 1.8 mg/dL (1.8-2.4)
[2023-10-08 22:32] LABS: CREATININE 0.8 mg/dL (0.55-1.3)
[2023-10-08 22:33] LABS: BILIRUBIN,TOTAL 1.1 mg/dL (0.2-1); PHOSPHOROUS 3.6 mg/dL (2.5-4.9)
[2023-10-08] MEDS ORDERED: CEFAZOLIN SODIUM 2 GM in DEXTROSE 5%-WATER 100 ML IVPB SCH (23:00)
[2023-10-08] MEDS ORDERED: CEFAZOLIN 2 GM in DEXTROSE 5%-WATER - 50 ML IVPB SCH (23:00)
[2023-10-08 23:02] LABS: ALBUMIN 2.2 g/dl (3.4-5.0); TOT PROT 4.6 g/dl (6.4-8.2)
[2023-10-08] MEDS: CEFAZOLIN SODIUM 2 GM in DEXTROSE 5%-WATER 100 ML IVPB SCH (23:15)
[2023-10-09] MEDS: INSULIN ASPART SLIDING SCALE (NOVOLOG) 1 VIAL SQ SCH ×8 (01:10→22:10)
[2023-10-09] MEDS ORDERED: LACTATED RINGERS SOLUTION 1000 ML INFUS.BAG IV ONE (01:15)
[2023-10-09] MEDS: CEFAZOLIN SODIUM 2 GM in DEXTROSE 5%-WATER 100 ML IVPB SCH (06:17)
[2023-10-09] MEDS: SUCRALFATE 1 GM/10 ML UNIT DOSE CUPS PO SCH ×2 (06:20→17:19)
[2023-10-09 06:33] LABS: BASO % 0.2 % (0-2.0); HEMATOCRIT 30.1 % (32.4-45.2); HEMOGLOBIN 10.1 GM/dL (10.7-15.3); LYMPH % 12.7 % (8-40); MCH 29.2 pg (25.7-33.7); MCHC 33.7 g/dl (32.0-36.0); MEAN CELL VOLUME 86.8 fl (80-96); MEAN PLT VOLUME 7.9 fl (7.5-11.1); MONO % 16.2 % (3.8-10.2); NEUT % 70.9 % (42.8-82.8); PLATELET COUNT 188 10^3/uL (134-434); RBC 3.47 M/mm3 (3.60-5.2); RDW 16.3 % (11.6-15.6); WHITE BLOOD COUNT 12.7 K/mm3 (4.0-10.0)
[2023-10-09 06:39] LABS: INR 1.17 (0.83-1.09); PROTHROMBIN TIME (PATIENT) 13.5 SEC (9.7-13.0)
[2023-10-09 06:42] LABS: ACTIVATED PTT 23.4 SECONDS (25.2-36.5)
[2023-10-09 06:53] LABS: POTASSIUM 3.8 mmol/L (3.5-5.1)
[2023-10-09 07:00] LABS: ALBUMIN 2.1 g/dl (3.4-5.0); MAGNESIUM 1.5 mg/dL (1.8-2.4)
[2023-10-09 07:03] LABS: CREATININE 0.5 mg/dL (0.55-1.3); PHOSPHOROUS 3.2 mg/dL (2.5-4.9)
[2023-10-09 07:04] LABS: BILIRUBIN,TOTAL 0.8 mg/dL (0.2-1); TOT PROT 4.3 g/dl (6.4-8.2)
[2023-10-09] MEDS ORDERED: MAGNESIUM SULFATE IN WATER 2 GM/50 ML IVPB IVPB ONE (07:15)
[2023-10-09] MEDS ORDERED: ALLOPURINOL 100 MG TABLET (FP) PO SCH (10:00)
[2023-10-09] MEDS ORDERED: MULTIVITAMINS (DAILY MVI) TABLET (FP) PO SCH (10:00)
[2023-10-09] MEDS ORDERED: LOSARTAN POTASSIUM 25 MG TABLET PO SCH (10:00)
[2023-10-09] MEDS ORDERED: ENOXAPARIN NA (PORCINE) 40 MG/0.4 ML DISP.SYRIN SQ SCH ×2 (10:00)
[2023-10-09 15:48] VITALS: RESP 18
[2023-10-09] MEDS ORDERED: INSULIN (LEVEMIR) 100 UNITS/ML UNITS SQ ONE (16:16)
[2023-10-09] MEDS: SODIUM CHLORIDE 1,000 ML IV SCH ×2 (17:47→22:23)
[2023-10-09 18:54] LABS: BASO % 0.1 % (0-2.0); HEMATOCRIT 28.3 % (32.4-45.2); HEMOGLOBIN 9.5 GM/dL (10.7-15.3); LYMPH % 9.9 % (8-40); MCHC 33.6 g/dl (32.0-36.0); MEAN CELL VOLUME 86.4 fl (80-96); MEAN PLT VOLUME 7.8 fl (7.5-11.1); MONO % 14.1 % (3.8-10.2); NEUT % 75.9 % (42.8-82.8); PLATELET COUNT 200 10^3/uL (134-434); RBC 3.28 M/mm3 (3.60-5.2); RDW 15.9 % (11.6-15.6); WHITE BLOOD COUNT 14.1 K/mm3 (4.0-10.0)
[2023-10-09 20:14] LABS: ANISOCYTOSIS 2+; MACROCYTOSIS 0; TARGET CELLS 1+
[2023-10-09] MEDS: ATORVASTATIN CA 10 MG TABLET (FP) PO SCH (22:23)
[2023-10-09] MEDS: MELATONIN 5 MG TABLETS PO SCH (22:23)
[2023-10-10] MEDS: INSULIN (LEVEMIR) 100 UNITS/ML UNITS SQ SCH ×2 (07:07→21:21)
[2023-10-10] MEDS: SUCRALFATE 1 GM/10 ML UNIT DOSE CUPS PO SCH ×2 (07:07→17:05)
[2023-10-10] MEDS: INSULIN ASPART SLIDING SCALE (NOVOLOG) 1 VIAL SQ SCH ×4 (07:10→21:20)
[2023-10-10] MEDS: MULTIVITAMINS (DAILY MVI) TABLET (FP) PO SCH (09:58)
[2023-10-10] MEDS: LOSARTAN POTASSIUM 25 MG TABLET PO SCH (09:58)
[2023-10-10] MEDS: ALLOPURINOL 100 MG TABLET (FP) PO SCH (09:58)
[2023-10-10] MEDS: ENOXAPARIN NA (PORCINE) 40 MG/0.4 ML DISP.SYRIN SQ SCH (09:58)
[2023-10-10 10:02] LABS: BASO % 0.2 % (0-2.0); HEMATOCRIT 24.7 % (32.4-45.2); HEMOGLOBIN 8.3 GM/dL (10.7-15.3); LYMPH % 9.3 % (8-40); MCH 29.4 pg (25.7-33.7); MCHC 33.5 g/dl (32.0-36.0); MEAN CELL VOLUME 87.8 fl (80-96); MEAN PLT VOLUME 7.9 fl (7.5-11.1); MONO % 13.6 % (3.8-10.2); NEUT % 76.9 % (42.8-82.8); PLATELET COUNT 182 10^3/uL (134-434); RBC 2.81 M/mm3 (3.60-5.2); WHITE BLOOD COUNT 14.4 K/mm3 (4.0-10.0)
[2023-10-10] MEDS: SODIUM CHLORIDE 1,000 ML IV SCH (10:07)
[2023-10-10 10:31] LABS: POTASSIUM 3.6 mmol/L (3.5-5.1)
[2023-10-10 10:42] LABS: TOT PROT 4.4 g/dl (6.4-8.2)
[2023-10-10 10:43] LABS: CALCIUM 7.5 mg/dL (8.5-10.1); PHOSPHOROUS 1.6 mg/dL (2.5-4.9)
[2023-10-10 10:44] LABS: ALBUMIN 1.8 g/dl (3.4-5.0); BLOOD UREA NITROGEN 14.8 mg/dL (7-18); CREATININE 0.5 mg/dL (0.55-1.3); MAGNESIUM 1.8 mg/dL (1.8-2.4)
[2023-10-10 10:45] LABS: BILIRUBIN,TOTAL 0.5 mg/dL (0.2-1)
[2023-10-10] MEDS ORDERED: POTASSIUM PHOSPHATE 15 MM in SODIUM CHLORIDE 250 ML IVPB ONE (13:00)
[2023-10-10] MEDS: ATORVASTATIN CA 10 MG TABLET (FP) PO SCH (21:20)
[2023-10-10] MEDS: MELATONIN 5 MG TABLETS PO SCH (21:20)
[2023-10-10 21:33] VITALS: BMI 26.5
[2023-10-11] MEDS: SODIUM CHLORIDE 1,000 ML IV SCH (05:08)
[2023-10-11] MEDS: SUCRALFATE 1 GM/10 ML UNIT DOSE CUPS PO SCH ×2 (06:06→18:34)
[2023-10-11] MEDS: INSULIN (LEVEMIR) 100 UNITS/ML UNITS SQ SCH ×2 (06:07→22:14)
[2023-10-11] MEDS: INSULIN ASPART SLIDING SCALE (NOVOLOG) 1 VIAL SQ SCH ×4 (06:07→22:17)
[2023-10-11] MEDS: AMINO ACIDS/PROTEIN HYDROLYS 30 ML LIQUID.PKT PO SCH ×2 (09:03→18:35)
[2023-10-11 10:21] LABS: BASO % 0.1 % (0-2.0); EOS % 0.3 % (0-4.5); HEMATOCRIT 22.9 % (32.4-45.2); HEMOGLOBIN 7.7 GM/dL (10.7-15.3); LYMPH % 8.6 % (8-40); MCH 29.8 pg (25.7-33.7); MCHC 33.6 g/dl (32.0-36.0); MEAN CELL VOLUME 88.7 fl (80-96); MEAN PLT VOLUME 7.9 fl (7.5-11.1); MONO % 10.4 % (3.8-10.2); NEUT % 80.6 % (42.8-82.8); PLATELET COUNT 186 10^3/uL (134-434); RBC 2.58 M/mm3 (3.60-5.2); RDW 15.4 % (11.6-15.6); WHITE BLOOD COUNT 11.7 K/mm3 (4.0-10.0)
[2023-10-11 10:40] LABS: POTASSIUM 3.1 mmol/L (3.5-5.1)
[2023-10-11 10:42] LABS: BLOOD UREA NITROGEN 8.8 mg/dL (7-18); CALCIUM 7.5 mg/dL (8.5-10.1)
[2023-10-11 10:46] LABS: CREATININE 0.3 mg/dL (0.55-1.3)
[2023-10-11] MEDS: ENOXAPARIN NA (PORCINE) 40 MG/0.4 ML DISP.SYRIN SQ SCH (11:10)
[2023-10-11] MEDS: DOCUSATE SODIUM 100 MG CAPSULE (FP) PO PRN (11:10)
[2023-10-11] MEDS: LOSARTAN POTASSIUM 25 MG TABLET PO SCH (11:10)
[2023-10-11] MEDS: ALLOPURINOL 100 MG TABLET (FP) PO SCH (11:11)
[2023-10-11] MEDS: ASCORBIC ACID 500 MG TABLET (FP) PO SCH (11:11)
[2023-10-11] MEDS: MULTIVITAMINS (DAILY MVI) TABLET (FP) PO SCH (11:11)
[2023-10-11] MEDS: POLYETHYLENE GLYCOL (HEALTHYLAX) 3350 17 GM PACKET PO SCH (11:31)
[2023-10-11] MEDS: ATORVASTATIN CA 10 MG TABLET (FP) PO SCH (22:14)
[2023-10-11] MEDS: MELATONIN 5 MG TABLETS PO SCH (22:14)
[2023-10-12] MEDS: INSULIN ASPART SLIDING SCALE (NOVOLOG) 1 VIAL SQ SCH ×4 (07:07→21:55)
[2023-10-12] MEDS: SUCRALFATE 1 GM/10 ML UNIT DOSE CUPS PO SCH ×2 (07:08→17:08)
[2023-10-12] MEDS: AMINO ACIDS/PROTEIN HYDROLYS 30 ML LIQUID.PKT PO SCH ×2 (08:48→17:08)
[2023-10-12] MEDS: oxyCODONE HCL 5 MG TABLET PO PRN (08:52)
[2023-10-12] MEDS: DOCUSATE SODIUM 100 MG CAPSULE (FP) PO PRN (09:02)
[2023-10-12] MEDS: ENOXAPARIN NA (PORCINE) 40 MG/0.4 ML DISP.SYRIN SQ SCH (09:03)
[2023-10-12] MEDS: INSULIN (LEVEMIR) 100 UNITS/ML UNITS SQ SCH ×2 (09:03→21:53)
[2023-10-12] MEDS: LOSARTAN POTASSIUM 25 MG TABLET PO SCH (09:03)
[2023-10-12] MEDS: ASCORBIC ACID 500 MG TABLET (FP) PO SCH (09:03)
[2023-10-12] MEDS: POLYETHYLENE GLYCOL (HEALTHYLAX) 3350 17 GM PACKET PO SCH (09:03)
[2023-10-12] MEDS: MULTIVITAMINS (DAILY MVI) TABLET (FP) PO SCH (09:03)
[2023-10-12] MEDS: ALLOPURINOL 100 MG TABLET (FP) PO SCH (09:03)
[2023-10-12 10:41] LABS: POTASSIUM 3.5 mmol/L (3.5-5.1)
[2023-10-12 10:43] LABS: CALCIUM 7.8 mg/dL (8.5-10.1)
[2023-10-12 10:44] LABS: BLOOD UREA NITROGEN 10.2 mg/dL (7-18)
[2023-10-12 10:47] LABS: CREATININE 0.4 mg/dL (0.55-1.3)
[2023-10-12 10:57] LABS: BASO % 0.3 % (0-2.0); HEMATOCRIT 28.2 % (32.4-45.2); HEMOGLOBIN 9.8 GM/dL (10.7-15.3); LYMPH % 11.6 % (8-40); MCH 30.5 pg (25.7-33.7); MCHC 34.7 g/dl (32.0-36.0); MEAN CELL VOLUME 87.8 fl (80-96); MEAN PLT VOLUME 8.3 fl (7.5-11.1); MONO % 9.7 % (3.8-10.2); NEUT % 77.4 % (42.8-82.8); PLATELET COUNT 224 10^3/uL (134-434); RBC 3.21 M/mm3 (3.60-5.2); RDW 14.9 % (11.6-15.6)
[2023-10-12] MEDS: MELATONIN 5 MG TABLETS PO SCH (21:52)
[2023-10-12] MEDS: ATORVASTATIN CA 10 MG TABLET (FP) PO SCH (21:53)
[2023-10-13] MEDS: SUCRALFATE 1 GM/10 ML UNIT DOSE CUPS PO SCH (06:00)
[2023-10-13] MEDS: INSULIN ASPART SLIDING SCALE (NOVOLOG) 1 VIAL SQ SCH ×2 (06:00→12:25)
[2023-10-13] MEDS: INSULIN (LEVEMIR) 100 UNITS/ML UNITS SQ SCH (08:22)
[2023-10-13] MEDS: ALLOPURINOL 100 MG TABLET (FP) PO SCH (10:06)
[2023-10-13] MEDS: AMINO ACIDS/PROTEIN HYDROLYS 30 ML LIQUID.PKT PO SCH (10:06)
[2023-10-13] MEDS: MULTIVITAMINS (DAILY MVI) TABLET (FP) PO SCH (10:06)
[2023-10-13] MEDS: ASCORBIC ACID 500 MG TABLET (FP) PO SCH (10:06)
[2023-10-13] MEDS: LOSARTAN POTASSIUM 25 MG TABLET PO SCH (10:06)
[2023-10-13] MEDS: POLYETHYLENE GLYCOL (HEALTHYLAX) 3350 17 GM PACKET PO SCH (10:06)
[2023-10-13] MEDS: ENOXAPARIN NA (PORCINE) 40 MG/0.4 ML DISP.SYRIN SQ SCH (10:06)
[2023-10-13] MEDS: oxyCODONE HCL 5 MG TABLET PO PRN (14:36)
[2023-10-13 14:57] VITALS: BP 131/69; PULSE 97; TEMP 98
== END 2023-10-13 14:55 | DRG 481 ==
LOC: JER 12:22 → JERBED 19:08 → J5S 20:12 → JICU 10-08 21:05 → J6S 10-09 20:52
PROVIDERS: ADMIT Internal Medicine; ATTEND Internal Medicine
PROC: 0QPB04Z Removal of Internal Fixation Device from Right Lower Femur, Open Approach (ICD-10-PCS; 2023-10-08)
PROC: 30233N1 Transfusion of Nonautologous Red Blood Cells into Peripheral Vein, Percutaneous Approach (ICD-10-PCS; 2023-10-08)
PROC: 0QS804Z Reposition Right Femoral Shaft with Internal Fixation Device, Open Approach (ICD-10-PCS; principal; 2023-10-08 13:00)
DX: M97.01XA Periprosthetic fracture around internal prosthetic right hip joint, initial encounter (principal); D62 Acute posthemorrhagic anemia; I10 Essential (primary) hypertension; E78.5 Hyperlipidemia, unspecified; M17.0 Bilateral primary osteoarthritis of knee; K21.9 Gastro-esophageal reflux disease without esophagitis; M48.00 Spinal stenosis, site unspecified; E11.9 Type 2 diabetes mellitus without complications; M10.9 Gout, unspecified; M06.9 Rheumatoid arthritis, unspecified; M81.0 Age-related osteoporosis without current pathological fracture; G43.809 Other migraine, not intractable, without status migrainosus; M48.061 Spinal stenosis, lumbar region without neurogenic claudication; R29.6 Repeated falls; M54.50 Low back pain, unspecified; R00.0 Tachycardia, unspecified; E06.3 Autoimmune thyroiditis; W06.XXXA Fall from bed, initial encounter; Y92.092 Bedroom in other non-institutional residence as the place of occurrence of the external cause
CPT/HCPCS: 36415; 36430; 70450-TC; 71045-TC-FY; 72125-TC; 73552-TC-RT-FY; 73562-TC-RT-FY; 73590-TC-RT-FY; 76000-TC-FY; 80048; 80053; 81003; 82962; 83735; 84100; 84439; 84443; 84484; 85025; 85610; 85730; 86850; 86900; 86901; 86922; 87086; 87635; 93005; 93010; 94760; 97116-GP; 97162-GP; 99285-25; C1713; C1776; J0131; P9038; P9058